=== PATIENT | female | born 1960 | race Hispanic/Latino ===

== ENCOUNTER → 2017-04-10 | Day surgery (SDC) | payer OTHER ==
--- NOTE | 2017-04-10 15:31 | ULT ---
ULTRASOUND GUIDED BREAST BIOPSY: Date: 04/10/17 HISTORY: Breast mass. COMPARISON: Outside facility dated 03/21/17. TECHNIQUE/FINDINGS: The patient was brought to the ultrasound suite. All questions were answered. There is revisualizati on of the right breast mass with ultrasound. Timeout was performed. Informed consent was already obt ained. Right breast was prepped and draped in the normal sterile fashion. 3 mL of lidocaine was inst illed into the soft tissues for local anesthesia. Using a 14 gauge Achieve needle, a total of four c ores were obtained. The patient tolerated the procedure well and without complication. Clip was plac ed. Clip was adequately located on the post clip mammogram. IMPRESSION: Technically successful right breast mass biopsy. Pathology is pending. POS: TRAN
--- NOTE | 2017-04-10 16:43 | MMO ---
RIGHT BREAST MAMMOGRAM: Date: 04/10/17 HISTORY: Post clip. COMPARISON: Ultrasound guided biopsy from same date. FINDINGS: Satisfactory appearance of the clip placed within the right breast mass. IMPRESSION: Satisfactory appearance of the biopsy clip. POS: TRAN
== END ==
LOC: ULT 12:26
PROVIDERS: ATTEND Family Medicine
PROC: 0HBT3ZX Excision of Right Breast, Percutaneous Approach, Diagnostic (ICD-10-PCS; principal; 2017-04-10)
DX: N61.1 Abscess of the breast and nipple (principal); E11.9 Type 2 diabetes mellitus without complications; G40.909 Epilepsy, unspecified, not intractable, without status epilepticus; I25.10 Atherosclerotic heart disease of native coronary artery without angina pectoris; I25.2 Old myocardial infarction; Z79.899 Other long term (current) drug therapy; Z79.82 Long term (current) use of aspirin; Z88.8 Allergy status to other drugs, medicaments and biological substances; Z98.51 Tubal ligation status; Z90.81 Acquired absence of spleen; Z98.890 Other specified postprocedural states; Z83.3 Family history of diabetes mellitus
CPT/HCPCS: 19083; 88305; 88341; 88342; G0206-RT

== ENCOUNTER 2019-12-28 21:12 | Inpatient (IN) | payer OTHER ==
[~2019-12-28 21:12] MED LIST: Iopamidol-370 76% 500 ML 1 ML ONE
[2019-12-28] MEDS ORDERED: Dexamethasone 10 MG/ML VIAL ONE (21:54)
--- NOTE | 2019-12-28 21:57 | RAD ---
Chest one view HISTORY: Fever and cough. COMPARISON: 10/07/2016. FINDINGS: Cardiac silhouette is magnified by projection. Pulmonary vasculature is unremarkable. Mediastinum is midline. Scattered patchy areas of ill-defined predominantly groundglass parenchymal infiltrate are present th roughout each lung. Most pronounced at the right suprahilar level. No evidence of pneumothorax. IMPRESSION : Multifocal infiltrates. Clinical correlation regarding other signs and symptoms of COVID pneumonitis is required.
[2019-12-28] MEDS ORDERED: Albuterol 200 PUFF (6.7GM INHALER) ONE (22:07)
[2019-12-28] MEDS ORDERED: Albuterol 200 PUFF (6.7GM INHALER) INH SCH (22:15)
[2019-12-29] MEDS ORDERED: cefTRIAXone\\ROCEPHIN 1 GM VIAL ONE (00:26)
[2019-12-29 00:30] LABS: Hemoglobin 13.1 g/dL (12.0-16.0); Mean Corpuscular HGB CONC 32.7 g/dL (32.0-36.0); Mean Corpuscular Hemoglobin 31.1 pg (27.0-31.0); Mean Corpuscular Volume 95.2 fL (78.0-98.0); Mean Platelet Volume 12.8 fL (7.4-10.4); Platelet Count 190 thou/uL (130-400); RBC Distribution Width 13.2 % (11.5-14.5); Red Blood Cell (RBC) Count 4.22 mill/uL (4.20-5.40); White Blood Cell (WBC) Count 12.8 thou/uL (4.8-10.8)
[2019-12-29 00:50] LABS: ALT (SGPT) 21 U/L (8-55); AST (SGOT) 31 U/L (5-34); Albumin 3.4 g/dL (3.5-5.0); Alkaline Phosphatase 191 U/L (40-110); BUN (Urea Nitrogen) 8 mg/dL (9.8-20.1); Bilirubin, Total 0.4 mg/dL (0.2-1.2); Calc. Creatinine Clearance 0 mL/min (70-130); Calcium 8.4 mg/dL (7.8-10.44); Carbon Dioxide 25 mmol/L (22-29); Estimated GFR-MDRD 85; Globulin 4.4 g/dL (2.4-3.5); Glucose 142 mg/dL (70-105); Protein, Total 7.8 g/dL (6.0-8.3)
[2019-12-29 00:57] LABS: Band 6 % (5-11); Lymphocytes 17 % (21-51); MDiff Complete? YES; Monocytes 1 % (0-10); Neutrophil 76 % (42-75); Platelet Morphology Comment Appears Adequate; RBC Morphology Normal
[2019-12-29] MEDS ORDERED: Azithromycin 500 MG VIAL ONE (01:11)
[2019-12-29 01:39] LABS: Anion Gap 15 mmol/L (10-20); Chloride 106 mmol/L (98-107); Sodium 138 mmol/L (136-145)
[2019-12-29] MEDS ORDERED: Ondansetron PF 4 MG/2 ML Vial IVP PRN ×2 (01:45→01:59)
[2019-12-29] MEDS ORDERED: Ondansetron ODT 4 MG TAB SL PRN (01:45)
[2019-12-29] MEDS ORDERED: Ondansetron ODT 4 MG TAB PO PRN (01:59)
[2019-12-29] MEDS ORDERED: hydrALAZINE 20 MG/ML VIAL SLOW IVP PRN (01:59)
[2019-12-29] MEDS ORDERED: Albuterol 200 PUFF (6.7GM INHALER) INH SCH (02:15)
--- NOTE | 2019-12-29 04:10 | HP ---
PRIMARY CARE PROVIDER: [facility]. CHIEF COMPLAINT: Shortness of breath and fever. HISTORY OF PRESENT ILLNESS: This is a 59-year-old female, who presented to [facility] complaining of increasing shortness of breath, fever, chills, and generalized body aches over the last 3 days. The patient denied any travel history or known exposures and denied any known exposure to COVID-19. The patient does have a history of asthma/COPD, using her and bronchodilator therapy at home. The patient states she used her inhalers in an increasing frequency; however, this did not relieve her symptoms. The patient denied any family members with similar symptoms and states that she has had pneumonia in the past approximately 3 years prior to this evaluation. The patient denies the need for home oxygen and states she is usually functional of all activities of daily living. In the emergency room, the patient underwent general evaluation including portable chest imaging and CT angiogram of the chest showing bilateral diffuse infiltrates concerning for pneumonia and potential COVID-19. A rapid COVID-19 PCR was performed, however, is pending at the time of this dictation. The patient received broad-spectrum antibiotic coverage with Rocephin and Zithromax in addition to Decadron 10 mg IM x1 dose and Proventil HFA. PAST MEDICAL HISTORY: 1. Generalized seizure disorder. 2. Asthma. 3. Diet-controlled diabetes mellitus type 2. PAST SURGICAL HISTORY: 1. Status post bilateral tubal ligation. 2. Status post section x3. 3. Status post splenectomy. CURRENT MEDICATIONS: 1. Metformin 500 mg p.o. daily. 2. Phenytoin 100 mg p.o. at 8 a.m. and 2:00 p.m. and 200 mg p.o. at 10:00 p.m. 3. Albuterol metered dose inhaler 2 puffs inhaled q.6 hours p.r.n. ALLERGIES: GLIPIZIDE. FAMILY HISTORY: Positive for diabetes mellitus type 2. SOCIAL HISTORY: No tobacco or illicit drug use. Drinks socially every week. Functional of all activities of daily living. REVIEW OF SYSTEMS: CONSTITUTIONAL: Negative for weight loss or gain, ability to conduct usual activities. SKIN: Negative for rash, itching. EYES: Negative for double vision, pain. ENT/MOUTH: Negative for nose bleeding, neck stiffness, pain, tenderness. CARDIOVASCULAR: Negative for palpitations, dyspnea on exertion, orthopnea. RESPIRATORY: Negative for shortness of breath, wheezing, cough, hemoptysis, fever or night sweats. GASTROINTESTINAL: Negative for poor appetite, abdominal pain, heartburn, nausea, vomiting, constipation, or diarrhea. GENITOURINARY: Negative for urgency, frequency, dysuria, nocturia. MUSCULOSKELETAL: Negative for pain, swelling. NEUROLOGIC/PSYCHIATRIC: Negative for anxiety, depression. ALLERGY/IMMUNOLOGIC: Negative for skin rash, bleeding tendency. Review of systems otherwise negative except as stated per HPI. PHYSICAL EXAMINATION: VITAL SIGNS: On admission, blood pressure 133/78, pulse 96, respiratory rate 18, temperature 98.8 degrees Fahrenheit, O2 saturation 93% on room air. GENERAL APPEARANCE: This is a 59-year-old female, alert and oriented x3, pleasant, conversant, in mild respiratory distress. HEENT: Pupils are equal, round, reactive to light and accommodation. Extraocular muscles are intact. No scleral icterus. No conjunctival injection. Nares patent. OP is clear. Teeth in fair repair. NECK: Supple. No cervical adenopathy. No thyromegaly. No carotid bruits. No JVD appreciated. Cervical spine with full active and passive range of motion. No meningeal signs noted. CHEST: Diminished breath sounds in the bases bilaterally with occasional rhonchi. CARDIOVASCULAR EXAM: S1, S2 without noted murmur, rub, or gallop. ABDOMEN: Rounded, soft, nontender, and nondistended. Bowel sounds are positive in all 4 quadrants. There is no hepatosplenomegaly. No abdominal bruits. No rebound or guarding appreciated. EXTREMITIES: Warm and dry with fair turgor. No clubbing, cyanosis, or asymmetric edema appreciated. Pulses palpable distally at the dorsalis pedis, posterior tibial, and popliteal arteries bilaterally. Capillary refill less than 2 seconds. NEUROLOGIC: Cranial nerves 2 through 12 are grossly intact. No focal or lateralizing signs appreciated. PERTINENT LABORATORY AND X-RAY FINDINGS: Sodium 138, potassium 4.0, chloride 106, CO2 of 25, BUN 8, creatinine 0.71, glucose 142, calcium 8.4. LFTs within normal limits. BNP 76. Albumin 3.4. CBC showed a white blood cell count of 12.8, hemoglobin 13, hematocrit 40, and platelet count 190 with 76% neutrophils. Portable chest x-ray dated 12/28/[address] angiogram of the chest dated 12/28/2019 showed no evidence for pulmonary embolus. Multifocal infiltrates were identified. EKG dated 12/29/2019 by my interpretation shows sinus mechanism with heart rates in the 80s. Normal R-wave progression noted in the precordial leads. Normal axis. No acute ST-T wave changes appreciated. ASSESSMENT AND PLAN: 1. Bilateral pneumonia, suspected COVID-19 viral pneumonia. The patient will be admitted to the telemetry unit. Continue Zithromax 500 mg IV daily with additional Rocephin 2 g IV daily, Decadron 6 mg p.o. daily, albuterol metered-dose inhaler 2 puffs inhaled q.4-6 hours p.r.n. Respiratory isolation. Rapid COVID-19 PCR pending at the time of this dictation. Continue oxygen supplementation to maintain O2 saturations greater than or equal to 90%. 2. Acute hypoxic respiratory failure. Mild hypoxia noted. We will continue oxygen supplementation as outlined previously. Titrate to clinical response. 3. Diabetes mellitus type 2. Confirm home diabetic regimen. Serial Accu-Cheks before meals and at bedtime. Insulin sliding scale for reflexive coverage. ADA diet. 4. Seizure disorder, chronic and controlled. We will continue phenytoin and monitor for clinical response. 5. Prophylaxis. SCDs while in bed. Pepcid 20 mg p.o. b.i.d. CODE STATUS: Full. Surrogate medical decision maker is patient's spouse. Job ID: [id number]
[2019-12-29 06:01] LABS: Band 6 % (5-11); Hemoglobin 13.2 g/dL (12.0-16.0); Lymphocytes 10 % (21-51); MDiff Complete? YES; Mean Corpuscular HGB CONC 31.7 g/dL (32.0-36.0); Mean Corpuscular Hemoglobin 30.4 pg (27.0-31.0); Mean Platelet Volume 12.9 fL (7.4-10.4); Monocytes 2 % (0-10); Neutrophil 82 % (42-75); Platelet Count 175 thou/uL (130-400); Platelet Morphology Comment Appears Adequate; RBC Distribution Width 13.3 % (11.5-14.5); RBC Morphology Normal; Red Blood Cell (RBC) Count 4.36 mill/uL (4.20-5.40); White Blood Cell (WBC) Count 10.9 thou/uL (4.8-10.8)
[2019-12-29 06:30] LABS: Anion Gap 14 mmol/L (10-20); BUN (Urea Nitrogen) 7 mg/dL (9.8-20.1); CRP (Inflammatory) 18.69 mg/dL (= or < 0.5); Calc. Creatinine Clearance 133 mL/min (70-130); Calcium 8.6 mg/dL (7.8-10.44); Carbon Dioxide 23 mmol/L (22-29); Chloride 106 mmol/L (98-107); Estimated GFR-MDRD Greater than 90; Glucose 158 mg/dL (70-105); Potassium 4.6 mmol/L (3.5-5.1); Sodium 138 mmol/L (136-145)
--- NOTE | 2019-12-29 07:12 | CT ---
PRELIMINARY REPORT/[facility]/EMERGENCY AFTER HOURS PROCEDURE: EXAM: CTA Chest with Intravenous Contrast CLINICAL HISTORY: Pt presents for cough and dyspnea. Mildly hypoxic on arrival with diminished breath sounds. No resp d istress. Exam otherwise unremarkable. CXR suggestive of COVID pneumonitis. Pt became increasingly hyp oxic on exertion in ED requiring O2/NC. Labs notable for leukocytosis. Given dyspnea and hypoxia with abnormal CXR, pt will be admitted for further management. Rapid COVID screen ordered. TECHNIQUE: Axial CTA images of the chest with intravenous contrast. Three-dimensional MIP/volume rendered reform ations were performed. CONTRAST: With; 70ML ISOVUE 370 COMPARISON: None provided. FINDINGS: PULMONARY ARTERIES There is no intraluminal filling defect suspicious for PE. AORTA No thoracic aortic aneurysm or dissection. LUNGS Extensive patchy bilateral pulmonary parenchymal consolidation and ground glass opacities, with predo minant involvement of the mid to upper lung zones correlate for atypical/viral pneumonia or ARDS and follow up to resolution to exclude other considerations. PLEURAL SPACES No pleural effusion. No pneumothorax. HEART AND MEDIASTINUM No cardiomegaly. No significant pericardial effusion. LYMPH NODES No lymphadenopathy. BONES No focal osseous abnormality or acute fracture. CHEST WALL AND UPPER ABDOMEN 3.5 cm right adrenal nodule, incompletely characterized, possibly and atypical adenoma. Correlate cli nically or considere MRI. IMPRESSION: 1. No evidence of pulmonary artery embolism. 2. Extensive patchy bilateral pulmonary parenchymal consolidation and ground glass opacities, with pr edominant involvement of the mid to upper lung zones correlate for atypical/viral pneumonia or ARDS a nd follow up to resolution to exclude other considerations. 3. 3.5 cm right adrenal nodule, incompletely characterized, possibly and atypical adenoma. Correlate clinically or considere MRI. ELECTRONICALLY SIGNED BY: Haja Dumas MD Dec 29, 2019 1:11:32 AM CDT This report is intended for review by the ordering physician only, in accordance of law. If you recei ve this report in error, please call [facility] at [phone]. [facility] EMERG[facility] AFTER HOURS CTA CHEST: FINDINGS/IMPRESSION: I agree with the findings and impression given in the preliminary report per [facility] physici an. 1. No evidence of pulmonary thromboembolism. 2. Multifocal pneumonia. 3. Right adrenal nodule. 4. Nonobstructing left kidney stone. POS: EAA
[2019-12-29] MEDS ORDERED: Loratadine 10 MG TAB PO PRN (07:46)
[2019-12-29] MEDS ORDERED: Cepastat Lozenges 1 LOZ PO PRN (07:46)
[2019-12-29] MEDS ORDERED: Loperamide HCl 2 MG CAP PO PRN (07:46)
[2019-12-29] MEDS ORDERED: Calcium Carbonate 500 MG ChewTAB PO PRN (07:46)
[2019-12-29] MEDS ORDERED: Sodium Chloride 0.65% Nasal 44 ML BOT EA NARE PRN (07:46)
[2019-12-29] MEDS ORDERED: Temazepam 15 MG CAP PO PRN (07:46)
[2019-12-29] MEDS ORDERED: Bisacodyl 10 MG SUPP PR PRN (07:46)
[2019-12-29] MEDS ORDERED: Senokot S 8.6-50 MG TAB PO PRN (07:46)
[2019-12-29] MEDS: Famotidine 20 MG TAB PO SCH ×2 (09:05→20:41)
[2019-12-29] MEDS: Zinc Sulfate 220 MG CAP PO SCH (09:05)
[2019-12-29] MEDS: Dexamethasone 4 MG TAB PO SCH (09:36)
[2019-12-29] MEDS: Ascorbic Acid 500 mg Chewable Tablet PO SCH (09:37)
[2019-12-29] MEDS: cefTRIAXone\\ROCEPHIN 2 GM in Sodium Chloride 0.9% 100 ML IVPB SCH (09:37)
--- NOTE | 2019-12-29 11:00 | PDOC.HOSPP ---
- Subjective Encounter Date: 12/29/19 Encounter Time: 07:30 Subjective: Patient seen and examined bedside today, patient has dry cough, patient does not have any chest pain, no fever, - Objective Vital Signs & Weight: Vital Signs (12 hours) Temp Pulse Resp BP BP Pulse Ox 12/29/19 09:00 98.3 F 66 20 136/60 99 12/29/19 08:08 96 12/29/19 06:00 98.1 F 63 18 111/55 L 96 12/29/19 01:40 98.4 F 82 18 131/67 98 Weight Weight 193 lb 12.8 oz Result Diagrams: 12/29/19 04:47 12/29/19 04:47 Radiology Reviewed by me: Yes (All radiological investigations reviewed) EKG Reviewed by me: Yes Hospitalist ROS - Review of Systems Constitutional: reports: weakness. denies: fever, chills, sweats, malaise, other Respiratory: reports: cough, SOB with excertion. denies: dry, shortness of breath, hemoptysis, pleuritic pain, sputum, wheezing, other Cardiovascular: denies: chest pain, palpitations, orthopnea, paroxysmal noc. dyspnea, edema, light headedness, other Gastrointestinal: denies: nausea, vomiting, abdominal pain, diarrhea, constipation, melena, hematochezia, other Genitourinary: denies: dysuria, frequency, incontinence, hematuria, retention, other Musculoskeletal: denies: neck pain, shoulder pain, arm pain, back pain, hand pain, leg pain, foot pain, other - Medication Medications: Active Medications Generic Name Dose Route Start Last Admin Trade Name Braeden PRN Reason Stop Dose Admin Ascorbic Acid 1,000 mg 12/29/19 09:00 12/29/19 09:37 Vitamin C PO 1,000 mg DAILY JUAN Administration Dexamethasone 6 mg 12/29/19 08:00 12/29/19 09:36 Decadron PO 6 mg QAM-WM JUAN Administration Famotidine 20 mg 12/29/19 09:00 12/29/19 09:05 Pepcid PO 20 mg BID JUAN Administration Ceftriaxone Sodium 2 gm/ 100 mls @ 200 mls/hr 12/29/19 09:00 12/29/19 09:37 Sodium Chloride IVPB 100 mls DAILY JUAN Administration Zinc Sulfate 220 mg 12/29/19 09:00 12/29/19 09:05 Zinc Sulfate PO 220 mg DAILY JUAN Administration - Exam General Appearance: NAD, awake alert Eye: PERRL, anicteric sclera ENT: normocephalic atraumatic, no oropharyngeal lesions Neck: supple, symmetric, no JVD, no thyromegaly Heart: RRR, no murmur, no gallops Respiratory - other findings: Coarse breath sounds basally Gastrointestinal: soft, non-tender, non-distended, normal bowel sounds Gastrointestinal - other findings: Obesity Extremities: no cyanosis, no clubbing Skin: normal turgor, no lesions Neurological: cranial nerve grossly intact, no focal deficits Musculoskeletal: normal tone, normal strength Psychiatric: normal affect, normal behavior Hosp A/P - Plan old records reviewed/req, continue antibiotics, respiratory therapy, DVT proph w /lovenox Assessment Acute respiratory failure with hypoxia Suspected COVID-19 infection Viral pneumonia Obesity with BMI 37 Diabetes type 2 Asthma Seizure disorder Plan Continue empiric Rocephin and azithromycin for now Follow-up on COVID-19 test result Continue vitamin supplementation Continue Decadron 6 mg p.o. daily Her home medication has been reconciled We will follow-up on COVID-19 test result We will change to inpatient status because we are expecting her stay in hospital more than 48 hours. We will wean off oxygen as tolerated Plan of care discussed with patient in detail.
[2019-12-29] MEDS: Benzonatate 100 MG CAP PO PRN ×2 (11:33→23:30)
[2019-12-29 15:29] LABS: SARS-CoV-2 MS2 Positive; SARS-CoV-2 N Gene Positive; SARS-CoV-2 S Gene Positive; SARS-CoV-2 by NAA DETECTED (NotDetected); SARS-CoV-2 orf1ab Positive
[2019-12-29] MEDS: Azithromycin 500 MG in Sodium Chloride 0.9% 250 ML 250 ML IVPB SCH (20:41)
[2019-12-30 05:39] LABS: Hemoglobin 13.4 g/dL (12.0-16.0); Mean Corpuscular HGB CONC 32.6 g/dL (32.0-36.0); Mean Corpuscular Hemoglobin 31.1 pg (27.0-31.0); Mean Corpuscular Volume 95.4 fL (78.0-98.0); Mean Platelet Volume 13.1 fL (7.4-10.4); Platelet Count 191 thou/uL (130-400); RBC Distribution Width 13.1 % (11.5-14.5); White Blood Cell (WBC) Count 13.2 thou/uL (4.8-10.8)
[2019-12-30 05:40] LABS: Band 3 % (5-11); Lymphocytes 8 % (21-51); MDiff Complete? YES; Monocytes 7 % (0-10); Neutrophil 81 % (42-75); Platelet Morphology Comment Appears Adequate; RBC Morphology Normal; Reactive Lymphocytes 1 % (0-10)
[2019-12-30 05:58] LABS: Anion Gap 15 mmol/L (10-20); BUN (Urea Nitrogen) 10 mg/dL (9.8-20.1); CRP (Inflammatory) 18.23 mg/dL (= or < 0.5); Calc. Creatinine Clearance 120 mL/min (70-130); Calcium 8.6 mg/dL (7.8-10.44); Carbon Dioxide 23 mmol/L (22-29); Chloride 103 mmol/L (98-107); Estimated GFR-MDRD 85; Glucose 95 mg/dL (70-105); Potassium 4.6 mmol/L (3.5-5.1); Sodium 136 mmol/L (136-145)
[2019-12-30] MEDS: Dexamethasone 4 MG TAB PO SCH (09:56)
[2019-12-30] MEDS: Acetaminophen 500 MG TAB PO PRN ×2 (09:56→21:11)
[2019-12-30] MEDS: Enoxaparin Sodium 40 MG/0.4 ML SYRINGE SC SCH (09:57)
[2019-12-30] MEDS: Famotidine 20 MG TAB PO SCH ×2 (09:57→19:32)
[2019-12-30] MEDS: Mometasone 200 MCG/Formoterol 5 MCG 120 PUFF INHALER INH SCH (09:57)
[2019-12-30] MEDS: Zinc Sulfate 220 MG CAP PO SCH (09:57)
[2019-12-30] MEDS: cefTRIAXone\\ROCEPHIN 2 GM in Sodium Chloride 0.9% 100 ML IVPB SCH (09:57)
[2019-12-30] MEDS: Ascorbic Acid 500 mg Chewable Tablet PO SCH (09:58)
--- NOTE | 2019-12-30 12:17 | PDOC.HOSPP ---
- Subjective Encounter Date: 12/30/19 Encounter Time: 08:25 Subjective: Patient seen and examined bedside today, patient is subjectively not feeling good, she is very weak, she has cough, - Objective Vital Signs & Weight: Vital Signs (12 hours) Temp Pulse Resp BP Pulse Ox 12/30/19 11:13 99.4 F 74 22 H 111/57 L 93 L 12/30/19 09:15 99.5 F 77 18 121/59 L 95 12/30/19 04:15 99.3 F 72 25 H 115/55 L 97 Weight Weight 193 lb 6.4 oz I&O: 12/29/19 12/30/19 12/31/19 06:59 06:59 06:59 Intake Total 1520 Output Total 900 Balance 620 Result Diagrams: 12/30/19 04:57 12/30/19 04:57 Hospitalist ROS - Review of Systems Constitutional: reports: weakness, malaise. denies: fever, chills, sweats, other Respiratory: reports: cough. denies: dry, shortness of breath, hemoptysis, SOB with excertion, pleuritic pain, sputum, wheezing, other Cardiovascular: denies: chest pain, palpitations, orthopnea, paroxysmal noc. dyspnea, edema, light headedness, other Gastrointestinal: denies: nausea, vomiting, abdominal pain, diarrhea, constipation, melena, hematochezia, other Genitourinary: denies: dysuria, frequency, incontinence, hematuria, retention, other Musculoskeletal: denies: neck pain, shoulder pain, arm pain, back pain, hand pain, leg pain, foot pain, other - Medication Medications: Active Medications Generic Name Dose Route Start Last Admin Trade Name Freq PRN Reason Stop Dose Admin Acetaminophen 1,000 mg 12/29/19 01:59 12/30/19 09:56 Tylenol PO 1,000 mg Q6H PRN Administration Mild Pain (1-3) Ascorbic Acid 1,000 mg 12/29/19 09:00 12/30/19 09:58 Vitamin C PO 1,000 mg DAILY JUAN Administration Benzonatate 100 mg 12/29/19 01:59 12/29/19 23:30 Tessalon PO 100 mg Q6H PRN Administration Cough Dexamethasone 6 mg 12/29/19 08:00 12/30/19 09:56 Decadron PO 6 mg QAM-WM JUAN Administration Enoxaparin Sodium 40 mg 12/30/19 09:00 12/30/19 09:57 Lovenox SC 40 mg 0900 JUAN Administration Famotidine 20 mg 12/29/19 09:00 12/30/19 09:57 Pepcid PO 20 mg BID JUAN Administration Azithromycin 500 mg/ Sodium 250 mls @ 250 mls/hr 12/29/19 21:00 12/29/19 20: 41 Chloride IVPB 250 mls HS JUAN Administration Ceftriaxone Sodium 2 gm/ 100 mls @ 200 mls/hr 12/29/19 09:00 12/30/19 09:57 Sodium Chloride IVPB 100 mls DAILY JUAN Administration Mometasone Furoate/Formoterol Fumar 2 puff 12/30/19 07:00 12/30/19 09:57 Dulera 200 Mcg/5 Mcg Inhaler INH 2 puff DAILY-RT JUAN Administration Phenytoin Sodium 300 mg 12/29/19 21:00 12/29/19 20:41 Dilantin Er PO 300 mg HS JUAN Administration Zinc Sulfate 220 mg 12/29/19 09:00 12/30/19 09:57 Zinc Sulfate PO 220 mg DAILY JUAN Administration - Exam General Appearance: NAD, awake alert Eye: PERRL, anicteric sclera ENT: normocephalic atraumatic, no oropharyngeal lesions Neck: supple, symmetric, no JVD, no thyromegaly Heart: RRR, no murmur, no gallops, no rubs Respiratory: CTAB, no wheezes, no rales, no ronchi Gastrointestinal: soft, non-tender, non-distended, normal bowel sounds Extremities: no cyanosis, no clubbing Skin: normal turgor, no lesions Neurological: no focal deficits Musculoskeletal: normal tone, normal strength Psychiatric: normal affect, normal behavior Hosp A/P - Plan old records reviewed/req, continue antibiotics, respiratory therapy Assessment Acute respiratory failure with hypoxia, due to COVID-19 infection Acute respiratory distress due to COVID-19 infection Viral pneumonia, due to COVID-19 virus Obesity with BMI 37 Diabetes type 2 Asthma Seizure disorder Plan Continue empiric Rocephin and azithromycin for now Continue vitamin supplementation Continue Decadron 6 mg p.o. daily Plan of care discussed with patient in detail. Medication reviewed and continue provide symptomatic and supportive care If patient has no more deterioration then will consider discharging her home tomorrow
[2019-12-30] MEDS: Azithromycin 500 MG in Sodium Chloride 0.9% 250 ML 250 ML IVPB SCH (19:33)
[2019-12-30] MEDS: Albuterol 200 PUFF (6.7GM INHALER) INH PRN (19:47)
[2019-12-30] MEDS: Benzonatate 100 MG CAP PO PRN (19:48)
[2019-12-31] MEDS: Benzonatate 100 MG CAP PO PRN (03:32)
[2019-12-31] MEDS: Mometasone 200 MCG/Formoterol 5 MCG 120 PUFF INHALER INH SCH (07:05)
[2019-12-31] MEDS: Albuterol 200 PUFF (6.7GM INHALER) INH PRN (07:05)
[2019-12-31] MEDS: Ascorbic Acid 500 mg Chewable Tablet PO SCH (09:26)
[2019-12-31] MEDS: Dexamethasone 4 MG TAB PO SCH (09:26)
[2019-12-31] MEDS: cefTRIAXone\\ROCEPHIN 2 GM in Sodium Chloride 0.9% 100 ML IVPB SCH (09:26)
[2019-12-31] MEDS: Famotidine 20 MG TAB PO SCH ×2 (09:27→20:05)
[2019-12-31] MEDS: Zinc Sulfate 220 MG CAP PO SCH (09:27)
[2019-12-31] MEDS: Enoxaparin Sodium 40 MG/0.4 ML SYRINGE SC SCH (09:27)
--- NOTE | 2019-12-31 15:54 | PDOC.HOSPP ---
- Subjective Encounter Date: 12/31/19 Subjective: Continues to feel poorly. States she is okay as long as she is lying comfortably in bed with the oxygen on. Any attempts at exertion causes some increasing shortness of breath. - Objective Vital Signs & Weight: Vital Signs (12 hours) Temp Pulse Resp BP BP Pulse Ox 12/31/19 12:26 99.1 F 74 25 H 118/54 L 92 L 12/31/19 07:25 98.1 F 67 20 113/73 94 L 12/31/19 07:07 93 L 12/31/19 07:05 86 30 H 131/60 88 L Weight Weight 191 lb 12.8 oz I&O: 12/30/19 12/31/19 01/01/20 06:59 06:59 06:59 Intake Total 1520 1790 400 Output Total 900 1450 Balance 620 340 400 Result Diagrams: 12/30/19 04:57 12/30/19 04:57 Hospitalist ROS - Medication Medications: Active Medications Generic Name Dose Route Start Last Admin Trade Name Freq PRN Reason Stop Dose Admin Acetaminophen 1,000 mg 12/29/19 01:59 12/30/19 21:11 Tylenol PO 1,000 mg Q6H PRN Administration Mild Pain (1-3) Albuterol Sulfate 1 puff 12/29/19 01:59 12/31/19 07:05 Proventil Hfa INH 1 puff Q6H PRN Administration Wheezing Ascorbic Acid 1,000 mg 12/29/19 09:00 12/31/19 09:26 Vitamin C PO 1,000 mg DAILY JUAN Administration Benzonatate 100 mg 12/29/19 01:59 12/31/19 03:32 Tessalon PO 100 mg Q6H PRN Administration Cough Dexamethasone 6 mg 12/29/19 08:00 12/31/19 09:26 Decadron PO 6 mg QAM-WM JUAN Administration Enoxaparin Sodium 40 mg 12/30/19 09:00 12/31/19 09:27 Lovenox SC 40 mg 0900 JUAN Administration Famotidine 20 mg 12/29/19 09:00 12/31/19 09:27 Pepcid PO 20 mg BID JUAN Administration Mometasone Furoate/Formoterol Fumar 2 puff 12/30/19 07:00 12/31/19 07:05 Dulera 200 Mcg/5 Mcg Inhaler INH 2 puff DAILY-RT JUAN Administration Phenytoin Sodium 300 mg 12/29/19 21:00 12/30/19 19:32 Dilantin Er PO 300 mg HS JUAN Administration Zinc Sulfate 220 mg 12/29/19 09:00 12/31/19 09:27 Zinc Sulfate PO 220 mg DAILY JUAN Administration - Exam General Appearance: NAD, awake alert General - other findings: Obese Heart: RRR, no murmur, no gallops, no rubs, normal peripheral pulses Respiratory: CTAB, no wheezes, no rales, no ronchi, normal chest expansion, no tachypnea, normal percussion Gastrointestinal: soft, non-tender, non-distended, normal bowel sounds, no palpable masses, no hepatomegaly, no splenomegaly, no bruit Extremities: no cyanosis, no clubbing, no edema Skin: normal turgor, no lesions, no rashes Neurological: no focal deficits Musculoskeletal: normal tone Psychiatric: normal affect, normal behavior, A&O x 3 Hosp A/P (1) Acute respiratory failure with hypoxia Code(s): J96.01 - ACUTE RESPIRATORY FAILURE WITH HYPOXIA Status: Acute (2) COVID-19 virus infection Code(s): U07.1 - COVID-19 Status: Acute (3) Diabetes mellitus Code(s): E11.9 - TYPE 2 DIABETES MELLITUS WITHOUT COMPLICATIONS Status: Acute (4) Epilepsy Code(s): G40.909 - EPILEPSY, UNSP, NOT INTRACTABLE, WITHOUT STATUS EPILEPTICUS Status: Acute - Plan Acute hypoxic respiratory failure: Secondary to COVID-19 pneumonia. Continue with supplemental oxygen. Today she is satting 88% on room air. COVID-19 pneumonia: Patient's oxygen saturation is fairly stable with low and small amounts of oxygen. Therefore she does not qualify for aggressive antiviral therapy. She is on Decadron. Continue oxygen support. Diabetes mellitus: Patient has a history of diabetes and takes metformin at home. So far here her blood sugars have been pretty good. Will order Accu-Cheks and continue to monitor his they may go up with the dexamethasone. So far she is not been started back on her metformin as there is not been any medication. Seizure disorder: Continue home medical regimen.
[2020-01-01] MEDS: Mometasone 200 MCG/Formoterol 5 MCG 120 PUFF INHALER INH SCH (06:09)
[2020-01-01] MEDS: Dexamethasone 4 MG TAB PO SCH (08:16)
[2020-01-01] MEDS: Famotidine 20 MG TAB PO SCH ×2 (08:17→19:49)
[2020-01-01] MEDS: Ascorbic Acid 500 mg Chewable Tablet PO SCH (08:17)
[2020-01-01] MEDS: Enoxaparin Sodium 40 MG/0.4 ML SYRINGE SC SCH (08:17)
[2020-01-01] MEDS: Zinc Sulfate 220 MG CAP PO SCH (08:17)
[2020-01-01] MEDS ORDERED: HumaLOG 300 UNITS/3 ML VIAL SC PRN (09:55)
[2020-01-01] MEDS ORDERED: Dextrose 50% Abboject 50 ML SYRINGE SLOW IVP PRN (09:55)
[2020-01-01] MEDS ORDERED: Dextrose 5% in Water 1,000 ML IV PRN (09:55)
[2020-01-01] MEDS: Benzonatate 100 MG CAP PO PRN ×2 (10:53→19:49)
--- NOTE | 2020-01-01 14:53 | PDOC.HOSPP ---
- Subjective Encounter Date: 01/01/20 Subjective: Feeling somewhat better today. Breathing a little easier. Nurse indicated that she got her up and around today and she did fairly well until she had a coughing fit. Subsequent took a while to get her sats back up. - Objective Vital Signs & Weight: Vital Signs (12 hours) Temp Pulse Resp BP BP Pulse Ox 01/01/20 11:33 98 F 74 22 H 121/58 L 98 01/01/20 07:34 99.3 F 69 22 H 118/58 L 96 01/01/20 04:10 99.9 F H 69 20 117/55 L 97 Weight Weight 191 lb 12.8 oz I&O: 12/31/19 01/01/20 01/02/20 06:59 06:59 06:59 Intake Total 1790 850 360 Output Total 1450 500 Balance 340 350 360 Result Diagrams: 12/30/19 04:57 12/30/19 04:57 Additional Labs: Accuchecks 01/01/20 11:02 POC Glucose 157 H Hospitalist ROS - Medication Medications: Active Medications Generic Name Dose Route Start Last Admin Trade Name Freq PRN Reason Stop Dose Admin Acetaminophen 1,000 mg 12/29/19 01:59 12/30/19 21:11 Tylenol PO 1,000 mg Q6H PRN Administration Mild Pain (1-3) Albuterol Sulfate 1 puff 12/29/19 01:59 12/31/19 07:05 Proventil Hfa INH 1 puff Q6H PRN Administration Wheezing Ascorbic Acid 1,000 mg 12/29/19 09:00 01/01/20 08:17 Vitamin C PO 1,000 mg DAILY JUAN Administration Benzonatate 100 mg 12/29/19 01:59 01/01/20 10:53 Tessalon PO 100 mg Q6H PRN Administration Cough Dexamethasone 6 mg 12/29/19 08:00 01/01/20 08:16 Decadron PO 6 mg QAM-WM JUAN Administration Enoxaparin Sodium 40 mg 12/30/19 09:00 01/01/20 08:17 Lovenox SC 40 mg 0900 JUAN Administration Famotidine 20 mg 12/29/19 09:00 01/01/20 08:17 Pepcid PO 20 mg BID JUAN Administration Mometasone Furoate/Formoterol Fumar 2 puff 12/30/19 07:00 01/01/20 06:09 Dulera 200 Mcg/5 Mcg Inhaler INH 2 puff DAILY-RT JUAN Administration Phenytoin Sodium 300 mg 12/29/19 21:00 12/31/19 20:04 Dilantin Er PO 300 mg HS JUAN Administration Zinc Sulfate 220 mg 12/29/19 09:00 01/01/20 08:17 Zinc Sulfate PO 220 mg DAILY JUAN Administration - Exam General Appearance: NAD, awake alert Heart: RRR, no murmur, no gallops, no rubs, normal peripheral pulses Respiratory: no wheezes, no ronchi, normal chest expansion, no tachypnea, normal percussion, rales (Mild bibasilar) Gastrointestinal: soft, non-tender, non-distended, normal bowel sounds, no palpable masses, no hepatomegaly, no splenomegaly, no bruit Extremities: no cyanosis, no clubbing, no edema Musculoskeletal: normal tone Psychiatric: normal affect, normal behavior, A&O x 3 Hosp A/P (1) Acute respiratory failure with hypoxia Code(s): J96.01 - ACUTE RESPIRATORY FAILURE WITH HYPOXIA Status: Acute (2) COVID-19 virus infection Code(s): U07.1 - COVID-19 Status: Acute (3) Diabetes mellitus Code(s): E11.9 - TYPE 2 DIABETES MELLITUS WITHOUT COMPLICATIONS Status: Acute (4) Epilepsy Code(s): G40.909 - EPILEPSY, UNSP, NOT INTRACTABLE, WITHOUT STATUS EPILEPTICUS Status: Acute - Plan Acute hypoxic respiratory failure: Secondary to COVID-19 pneumonia. Continue with supplemental oxygen. COVID-19 pneumonia: Patient's oxygen saturation is fairly stable with low and small amounts of oxygen. Therefore she does not qualify for aggressive antiviral therapy. She is on Decadron. Continue oxygen support. Diabetes mellitus: Patient has a history of diabetes and takes metformin at home. So far here her blood sugars have been pretty good. Will order Accu-Cheks and continue to monitor his they may go up with the dexamethasone. Seizure disorder: Continue home medical regimen. Disposition: Conceivable the patient could go home on some home oxygen soon. Discussed this with the patient. She is not sure she has a place where she can go where she can adequately isolate.
[2020-01-01] MEDS: Acetaminophen 500 MG TAB PO PRN (19:49)
[2020-01-02] MEDS: Benzonatate 100 MG CAP PO PRN ×3 (01:41→17:00)
[2020-01-02] MEDS: Acetaminophen 500 MG TAB PO PRN ×2 (04:43→17:00)
[2020-01-02] MEDS: Albuterol 200 PUFF (6.7GM INHALER) INH PRN ×2 (05:41→17:07)
[2020-01-02] MEDS: Mometasone 200 MCG/Formoterol 5 MCG 120 PUFF INHALER INH SCH (06:00)
[2020-01-02] MEDS: Dexamethasone 4 MG TAB PO SCH (07:22)
[2020-01-02] MEDS: Enoxaparin Sodium 40 MG/0.4 ML SYRINGE SC SCH ×2 (07:22→19:20)
[2020-01-02] MEDS: Ascorbic Acid 500 mg Chewable Tablet PO SCH (07:22)
[2020-01-02] MEDS: Zinc Sulfate 220 MG CAP PO SCH (07:23)
[2020-01-02] MEDS: Famotidine 20 MG TAB PO SCH ×2 (07:23→19:19)
--- NOTE | 2020-01-02 13:51 | PDOC.HOSPP ---
- Subjective Encounter Date: 01/02/20 Subjective: Patient continues to feel a little better. She still feels short of breath at times. Especially true when trying to exert herself. I did clarify again with the patient today that she will have a place to go to at discharge. She says the person with whom she lives also has the virus now. Therefore she will be able to be around them in the home and will be able to stay in the air conditioned portion of the home. - Objective Vital Signs & Weight: Vital Signs (12 hours) Temp Pulse Resp BP BP Pulse Ox 01/02/20 11:00 98.2 F 65 22 H 108/64 96 01/02/20 08:00 98 F 64 24 H 101/51 L 97 01/02/20 04:50 98.4 F 71 34 H 116/57 L 94 L Weight Weight 191 lb 12.8 oz I&O: 01/01/20 01/02/20 01/03/20 06:59 06:59 06:59 Intake Total 850 1600 120 Output Total 500 600 Balance 350 1000 120 Result Diagrams: 12/30/19 04:57 12/30/19 04:57 Additional Labs: Accuchecks 01/01/20 16:45 POC Glucose 140 H Hospitalist ROS - Medication Medications: Active Medications Generic Name Dose Route Start Last Admin Trade Name Braeden PRN Reason Stop Dose Admin Acetaminophen 1,000 mg 12/29/19 01:59 01/02/20 04:43 Tylenol PO 1,000 mg Q6H PRN Administration Mild Pain (1-3) Albuterol Sulfate 1 puff 12/29/19 01:59 01/02/20 05:41 Proventil Hfa INH 1 puff Q6H PRN Administration Wheezing Ascorbic Acid 1,000 mg 12/29/19 09:00 01/02/20 07:22 Vitamin C PO 1,000 mg DAILY JUAN Administration Benzonatate 100 mg 12/29/19 01:59 01/02/20 07:23 Tessalon PO 100 mg Q6H PRN Administration Cough Dexamethasone 6 mg 12/29/19 08:00 01/02/20 07:22 Decadron PO 6 mg QAM-WM JUAN Administration Enoxaparin Sodium 40 mg 12/30/19 09:00 01/02/20 07:22 Lovenox SC 40 mg 0900 JUAN Administration Famotidine 20 mg 12/29/19 09:00 01/02/20 07:23 Pepcid PO 20 mg BID JUAN Administration Mometasone Furoate/Formoterol Fumar 2 puff 12/30/19 07:00 01/02/20 06:00 Dulera 200 Mcg/5 Mcg Inhaler INH 2 puff DAILY-RT JUAN Administration Phenytoin Sodium 300 mg 12/29/19 21:00 01/01/20 19:49 Dilantin Er PO 300 mg HS JUAN Administration Zinc Sulfate 220 mg 12/29/19 09:00 01/02/20 07:23 Zinc Sulfate PO 220 mg DAILY JUAN Administration - Exam General Appearance: NAD, awake alert General - other findings: Obese. Heart: RRR, no murmur, no gallops, no rubs, normal peripheral pulses Respiratory: CTAB, no wheezes, no rales, no ronchi, normal chest expansion, normal percussion, tachypneic (Mild) Respiratory - other findings: Compromised by disposable stethoscope. Gastrointestinal: soft, non-tender, non-distended, normal bowel sounds, no palpable masses, no hepatomegaly, no splenomegaly, no bruit Extremities: no cyanosis, no clubbing, no edema Skin: normal turgor Neurological: no new deficit Musculoskeletal: normal tone, normal strength Psychiatric: normal affect, normal behavior, A&O x 3 Hosp A/P (1) Acute respiratory failure with hypoxia Code(s): J96.01 - ACUTE RESPIRATORY FAILURE WITH HYPOXIA Status: Acute (2) COVID-19 virus infection Code(s): U07.1 - COVID-19 Status: Acute (3) Diabetes mellitus Code(s): E11.9 - TYPE 2 DIABETES MELLITUS WITHOUT COMPLICATIONS Status: Acute (4) Epilepsy Code(s): G40.909 - EPILEPSY, UNSP, NOT INTRACTABLE, WITHOUT STATUS EPILEPTICUS Status: Acute - Plan Acute hypoxic respiratory failure: Secondary to COVID-19 pneumonia. Continue with supplemental oxygen. Only requiring about 3 L/min of nasal cannula oxygen, however she is still a little tachypneic with that. Would consider discharge on home oxygen if she can get down to 2 L. COVID-19 pneumonia: Patient's oxygen saturation is fairly stable with low and small amounts of oxygen. Therefore she does not qualify for aggressive antiviral therapy. She is on Decadron. Continue oxygen support. Diabetes mellitus: Patient has a history of diabetes and takes metformin at home. So far here her blood sugars have been pretty good. Will follow Accu-Cheks and continue to monitor his they may go up with the dexamethasone. Seizure disorder: Continue home medical regimen. Disposition: Conceivable the patient could go home on some home oxygen soon. Discussed this with the patient.
--- NOTE | 2020-01-02 15:00 | PDOC.EVN ---
Event Note - Event Note Event Note: Discussed this case with Dr. Mendez. In light of her elevating inflammatory markers and her persistent need to have 3 L of oxygen with some persistent mild tachypnea we will go ahead and initiate remdesivir.
[2020-01-02] MEDS ORDERED: REMDESIVIR (EUA) 200 MG in Sodium Chloride 0.9% 250 ML 210 ML IV SCH (17:00)
[2020-01-03] MEDS: Mometasone 200 MCG/Formoterol 5 MCG 120 PUFF INHALER INH SCH (05:27)
[2020-01-03 06:29] LABS: ALT (SGPT) 35 U/L (8-55); AST (SGOT) 36 U/L (5-34)
--- NOTE | 2020-01-03 06:48 | PDOC.HOSPP ---
- Subjective Encounter Date: 01/03/20 Encounter Time: 09:45 Subjective: Patient seen and examined for resp failure. On 5 lit O2 NC. SOB on minimal exertion. No CP. No other complaints. No overnight events - Objective Vital Signs & Weight: Vital Signs (12 hours) Temp Pulse Resp BP BP Pulse Ox 01/03/20 04:00 97.9 F 73 22 H 118/59 L 95 01/02/20 23:35 98.0 F 72 24 H 139/65 93 L 01/02/20 19:42 98.2 F 69 23 H 130/63 96 Weight Weight 191 lb 12.8 oz I&O: 01/01/20 01/02/20 01/03/20 06:59 06:59 06:59 Intake Total 850 1600 1290 Output Total 500 600 950 Balance 350 1000 340 Result Diagrams: 12/30/19 04:57 12/30/19 04:57 Additional Labs: Accuchecks 01/03/20 01/02/20 01/02/20 05:34 19:28 17:14 POC Glucose 111 H 100 124 H 01/02/20 01/02/20 01/01/20 11:10 04:51 20:00 POC Glucose 226 H 105 147 H Laboratory Tests 12/29/19 01/02/20 01/02/20 00:00 06:08 06:08 D-Dimer 1.36 H C-Reactive Protein 28.18 H COVID-19 PCR DETECTED A* Microbiology 12/29/19 00:36 Venous blood - Left Arm Blood Culture - Preliminary NO GROWTH AT 48 HOURS 12/29/19 00:35 Venous blood - Right Hand Blood Culture - Preliminary NO GROWTH AT 48 HOURS Radiology Reviewed by me: Yes (CTA - COVID Pneumonia) EKG Reviewed by me: Yes (Tele SR) Hospitalist ROS - Review of Systems Cardiovascular: denies: chest pain, palpitations, orthopnea, paroxysmal noc. dyspnea, edema, light headedness, other Gastrointestinal: denies: nausea, vomiting, abdominal pain, diarrhea, constipation, melena, hematochezia, other - Medication Medications: Active Medications Generic Name Dose Route Start Last Admin Trade Name Freq PRN Reason Stop Dose Admin Acetaminophen 1,000 mg 12/29/19 01:59 01/02/20 17:00 Tylenol PO 1,000 mg Q6H PRN Administration Mild Pain (1-3) Albuterol Sulfate 1 puff 12/29/19 01:59 01/02/20 17:07 Proventil Hfa INH 1 puff Q6H PRN Administration Wheezing Ascorbic Acid 1,000 mg 12/29/19 09:00 01/02/20 07:22 Vitamin C PO 1,000 mg DAILY JUAN Administration Benzonatate 100 mg 12/29/19 01:59 01/02/20 17:00 Tessalon PO 100 mg Q6H PRN Administration Cough Dexamethasone 6 mg 12/29/19 08:00 01/02/20 07:22 Decadron PO 6 mg QAM-WM JUAN Administration Enoxaparin Sodium 40 mg 01/02/20 21:00 01/02/20 19:20 Lovenox SC 40 mg BID JUAN Administration Famotidine 20 mg 12/29/19 09:00 01/02/20 19:19 Pepcid PO 20 mg BID JUAN Administration Mometasone Furoate/Formoterol Fumar 2 puff 12/30/19 07:00 01/03/20 05:27 Dulera 200 Mcg/5 Mcg Inhaler INH 2 puff DAILY-RT JUAN Administration Phenytoin Sodium 300 mg 12/29/19 21:00 01/02/20 19:20 Dilantin Er PO 300 mg HS JUAN Administration Zinc Sulfate 220 mg 12/29/19 09:00 01/02/20 07:23 Zinc Sulfate PO 220 mg DAILY JUAN Administration - Exam General Appearance: ill appearing Neck: supple, symmetric, no JVD, no thyromegaly Heart: RRR, no gallops, no rubs, normal peripheral pulses Respiratory: no wheezes, normal chest expansion, rhonchi, tachypneic Gastrointestinal: soft, non-tender, normal bowel sounds, no guarding, no rigidity Extremities: no cyanosis, no clubbing, no edema Extremities - other findings: no calf tenderness Neurological: no new deficit Psychiatric: normal affect, A&O x 3 Hosp A/P - Plan DVT proph w/lovenox, GI proph Sepsis/Acute hypoxic resp failure due to COVID Pneumonia - POA -on Remdesivir - started on 01/01 -on PO Dexamethasone - started on 12/28 DM2 Seizure disorder Obesity BMI 37 Rt Adrenal nodule PLAN: Cont O2 supp Cont Remdesivir/Dexamethasone Cont Vit C/Zinc Home O2 setup at ok Cont supportive care Cont GI & DVT prophylaxis AM labs Monitor inflammatory markers
[2020-01-03] MEDS: Famotidine 20 MG TAB PO SCH ×2 (08:25→19:25)
[2020-01-03] MEDS: Ascorbic Acid 500 mg Chewable Tablet PO SCH (08:25)
[2020-01-03] MEDS: Calcium Carbonate 600 MG + Vit D TAB PO SCH (08:25)
[2020-01-03] MEDS: Dexamethasone 4 MG TAB PO SCH (08:25)
[2020-01-03] MEDS: Enoxaparin Sodium 40 MG/0.4 ML SYRINGE SC SCH ×2 (08:25→19:24)
[2020-01-03] MEDS: Zinc Sulfate 220 MG CAP PO SCH (08:25)
[2020-01-03] MEDS: Multivit, Therapeutic 1 TAB PO SCH (08:25)
[2020-01-03] MEDS ORDERED: HumaLOG 300 UNITS/3 ML VIAL SC PRN (10:22)
[2020-01-03] MEDS: REMDESIVIR (EUA) 100 MG in Sodium Chloride 0.9% 250 ML 230 ML IV SCH (16:56)
[2020-01-04] MEDS: Benzonatate 100 MG CAP PO PRN (02:22)
[2020-01-04] MEDS: Acetaminophen 500 MG TAB PO PRN ×2 (02:22→10:16)
[2020-01-04] MEDS: Mometasone 200 MCG/Formoterol 5 MCG 120 PUFF INHALER INH SCH (05:11)
[2020-01-04 05:47] LABS: Band 3 % (5-11); Eosinophils 2 % (0-10); Hemoglobin 12.7 g/dL (12.0-16.0); Lymphocytes 7 % (21-51); MDiff Complete? YES; Mean Corpuscular HGB CONC 32.5 g/dL (32.0-36.0); Mean Corpuscular Hemoglobin 31.2 pg (27.0-31.0); Mean Corpuscular Volume 96.2 fL (78.0-98.0); Mean Platelet Volume 12.7 fL (7.4-10.4); Monocytes 6 % (0-10); Neutrophil 82 % (42-75); Platelet Count 248 thou/uL (130-400); Platelet Morphology Comment Appears Adequate; RBC Distribution Width 13.2 % (11.5-14.5); RBC Morphology Normal; Red Blood Cell (RBC) Count 4.08 mill/uL (4.20-5.40)
[2020-01-04 05:52] LABS: ALT (SGPT) 29 U/L (8-55); AST (SGOT) 24 U/L (5-34); Albumin 2.7 g/dL (3.5-5.0); Alkaline Phosphatase 274 U/L (40-110); Anion Gap 10 mmol/L (10-20); BUN (Urea Nitrogen) 15 mg/dL (9.8-20.1); Bilirubin, Total 0.4 mg/dL (0.2-1.2); CRP (Inflammatory) 29.76 mg/dL (= or < 0.5); Calc. Creatinine Clearance 140 mL/min (70-130); Calcium 9.3 mg/dL (7.8-10.44); Carbon Dioxide 29 mmol/L (22-29); Chloride 103 mmol/L (98-107); Estimated GFR-MDRD Greater than 90; Globulin 4.5 g/dL (2.4-3.5); Glucose 127 mg/dL (70-105); Magnesium 1.9 mg/dL (1.6-2.6); Potassium 4.3 mmol/L (3.5-5.1); Protein, Total 7.2 g/dL (6.0-8.3); Sodium 138 mmol/L (136-145)
[2020-01-04 05:53] LABS: Phosphorus 3.1 mg/dL (2.3-4.7)
[2020-01-04] MEDS: Zinc Sulfate 220 MG CAP PO SCH (08:42)
[2020-01-04] MEDS: Enoxaparin Sodium 40 MG/0.4 ML SYRINGE SC SCH ×2 (08:42→20:30)
[2020-01-04] MEDS: Dexamethasone 4 MG TAB PO SCH (08:43)
[2020-01-04] MEDS: Calcium Carbonate 600 MG + Vit D TAB PO SCH (08:43)
[2020-01-04] MEDS: Multivit, Therapeutic 1 TAB PO SCH (08:43)
[2020-01-04] MEDS: Famotidine 20 MG TAB PO SCH ×2 (08:43→20:30)
[2020-01-04] MEDS: Ascorbic Acid 500 mg Chewable Tablet PO SCH (08:43)
--- NOTE | 2020-01-04 08:57 | PDOC.HOSPP ---
- Subjective Encounter Date: 01/04/20 Encounter Time: 14:00 Subjective: Patient seen and examined for resp failure. SOB at rest. Unable to complete short sentences. Mild cough. No new complaints. No overnight events - Objective Vital Signs & Weight: Vital Signs (12 hours) Temp Pulse Resp BP Pulse Ox 01/04/20 03:00 98.6 F 70 28 H 118/56 L 93 L 01/03/20 23:32 97.8 F 61 25 H 124/63 95 Weight Weight 191 lb 12.8 oz I&O: 01/03/20 01/04/20 01/05/20 06:59 06:59 06:59 Intake Total 1290 1340 Output Total 950 Balance 340 1340 Result Diagrams: 01/05/20 05:30 01/05/20 05:30 Additional Labs: Accuchecks 01/03/20 01/03/20 19:35 15:53 POC Glucose 139 H 149 H Microbiology 12/29/19 00:36 Venous blood - Left Arm Blood Culture - Final NO GROWTH IN 5 DAYS 12/29/19 00:35 Venous blood - Right Hand Blood Culture - Final NO GROWTH IN 5 DAYS Laboratory Tests 01/02/20 01/02/20 01/02/20 06:08 06:08 06:08 D-Dimer 1.36 H Ferritin 471.39 H C-Reactive Protein 28.18 H 01/04/20 01/04/20 01/04/20 05:06 05:06 05:06 D-Dimer 1.26 H Ferritin 579.79 H C-Reactive Protein 29.76 H Radiology Reviewed by me: Yes (CXR - worsening pneumonia) EKG Reviewed by me: Yes (Tele SR) Hospitalist ROS - Review of Systems Constitutional: reports: sweats, weakness, malaise Gastrointestinal: denies: nausea, vomiting, abdominal pain, diarrhea, constipation, melena, hematochezia, other Genitourinary: denies: dysuria, frequency, incontinence, hematuria, retention, other - Medication Medications: Active Medications Generic Name Dose Route Start Last Admin Trade Name Freq PRN Reason Stop Dose Admin Acetaminophen 1,000 mg 12/29/19 01:59 01/04/20 02:22 Tylenol PO 1,000 mg Q6H PRN Administration Mild Pain (1-3) Albuterol Sulfate 1 puff 12/29/19 01:59 01/02/20 17:07 Proventil Hfa INH 1 puff Q6H PRN Administration Wheezing Ascorbic Acid 1,000 mg 12/29/19 09:00 01/04/20 08:43 Vitamin C PO 1,000 mg DAILY JUAN Administration Benzonatate 100 mg 12/29/19 01:59 01/04/20 02:22 Tessalon PO 100 mg Q6H PRN Administration Cough Calcium Carbonate 1,000 mg 12/29/19 07:46 01/03/20 19:28 Tums PO 1,000 mg Q4H PRN Administration Heartburn or Indigestion Calcium/Vitamin D 1 tab 01/03/20 09:00 01/04/20 08:43 Caltrate 600 + Vit D PO 1 tab DAILY JUAN Administration Dexamethasone 6 mg 12/29/19 08:00 01/04/20 08:43 Decadron PO 6 mg QAM-WM JUAN Administration Enoxaparin Sodium 40 mg 01/02/20 21:00 01/04/20 08:42 Lovenox SC 40 mg BID JUAN Administration Famotidine 20 mg 12/29/19 09:00 01/04/20 08:43 Pepcid PO 20 mg BID JUAN Administration REMDESIVIR (EUA) 100 mg/ 250 mls @ 250 mls/hr 01/03/20 17:00 01/03/20 16:56 Sodium Chloride IV 01/06/20 17:59 250 mls Q24HR JUAN Administration Mometasone Furoate/Formoterol Fumar 2 puff 12/30/19 07:00 01/04/20 05:11 Dulera 200 Mcg/5 Mcg Inhaler INH 2 puff DAILY-RT JUAN Administration Multivitamins 1 tab 01/03/20 09:00 01/04/20 08:43 Theragran PO 1 tab DAILY JUAN Administration Phenytoin Sodium 300 mg 12/29/19 21:00 01/03/20 19:25 Dilantin Er PO 300 mg HS JUAN Administration Zinc Sulfate 220 mg 12/29/19 09:00 01/04/20 08:42 Zinc Sulfate PO 220 mg DAILY JUAN Administration - Exam General Appearance: ill appearing General - other findings: Pt in significant resp distress at rest Neck: supple, no JVD Heart: RRR, no gallops, no rubs, normal peripheral pulses Respiratory: rales, rhonchi, tachypneic, wheezes Gastrointestinal: soft, non-tender, no guarding, no rigidity Extremities: no cyanosis, no clubbing Neurological: no new deficit Psychiatric: normal affect, A&O x 3 Hosp A/P - Plan DVT proph w/lovenox Sepsis/Acute hypoxic resp failure due to COVID Pneumonia - POA -on Remdesivir - started on 01/01 -on PO Dexamethasone - started on 12/28 DM2 Seizure disorder Obesity BMI 37 Rt Adrenal nodule PLAN: 01/03 Markers uptrending On 4-5 L NC Transfer to IMCU Consult Pulmonary High flow O2 if worsens Repeat CXR - done - worsening Pneumonia Cont supportive care Cont current meds as above AM labs 01/02 Cont O2 supp Cont Remdesivir/Dexamethasone Cont Vit C/Zinc Sliding scale Home O2 setup at dc Cont supportive care Cont GI & DVT prophylaxis AM labs Monitor inflammatory markers
--- NOTE | 2020-01-04 16:19 | RAD ---
PORTABLE CHEST: History: Pneumonia, hypoxia. Comparison: 12-28-2019 FINDINGS: Heart size is enlarged. Parenchymal lung changes appear slightly worse as compared to the prior exami nation. There is less optimal inspiration which can account for some of these changes, but more confl uent changes in the left lung as compared to the prior exam. IMPRESSION: Worsening pneumonia. POS: LARRY
[2020-01-04] MEDS ORDERED: [UNRECOGNIZED DRUG - OTHER] IV SCH (17:30)
[2020-01-04] MEDS: REMDESIVIR (EUA) 100 MG in Sodium Chloride 0.9% 250 ML 230 ML IV SCH (17:34)
[2020-01-04] MEDS ORDERED: Dexamethasone 4 mg/ml Vial SLOW IVP SCH (17:45)
--- NOTE | 2020-01-04 17:52 | CON ---
DATE OF CONSULTATION: 01/04/2020 CONSULTING PHYSICIAN: Dr. Molina. REASON FOR CONSULTATION: COVID with hypoxemia. HISTORY OF PRESENT ILLNESS: This is a 59-year-old female, who was admitted to this facility on 12/29/2019, with COVID-19 pneumonia. She was transferred to [facility] today because apparently she was more short of breath; however, on 5 L, she is saturating 100%. She says she has been sick for over a week. She is not sure where she acquired the infection. She is a diabetic, but takes medication to keep her blood sugars under good control. PAST MEDICAL HISTORY: 1. Seizure disorder. 2. Asthma. 3. Type 2 diabetes mellitus. PAST SURGICAL HISTORY: 1. Tubal ligation. 2. . 3. Splenectomy. MEDICATIONS: Prior to admission; 1. Metformin. 2. Phenytoin. 3. Albuterol. ALLERGIES: GLIPIZIDE. SOCIAL HISTORY: She is a nonsmoker. Drinks socially. FAMILY MEDICAL HISTORY: Remarkable for diabetes. REVIEW OF SYSTEMS: Otherwise negative. PHYSICAL EXAMINATION: VITAL SIGNS: Temperature 98.9, pulse 66, blood pressure 130/90, O2 saturation 100% on 5 L. GENERAL: She is awake, alert, in no distress. HEENT: Unremarkable. NECK: No adenopathy or JVD. LUNGS: Inspiratory crackles bilaterally. CARDIOVASCULAR: S1 and S2, regular. ABDOMEN: Soft and nontender. EXTREMITIES: No clubbing, cyanosis, or edema. LABORATORY DATA: White blood cell count 17, hematocrit 39.2, and platelet count 248. D-dimer 1.26. Sodium 138, potassium 4.3, chloride 103, CO2 of 29, BUN 15, creatinine 0.6, glucose 127. C-reactive protein is 29.76, which is up from admission at 18.69. It does not look like she has received any convalescent plasma. She is on remdesivir, but I do not see that she is on IV steroids. Chest x-ray report is in the computer, but there is no film. The report indicates worsening bilateral pneumonia. ASSESSMENT: COVID-19 pneumonia with worsening hypoxemia and inflammatory profile. PLAN: 1. She needs to go back on IV dexamethasone. 2. Tocilizumab. 3. Fresh frozen plasma. We will follow. Job ID: [id number]
[2020-01-04] MEDS ORDERED: Tocilizumab 400 MG in Sodium Chloride 0.9% 80 ML IV SCH (18:15)
[2020-01-05 06:01] LABS: Phosphorus 3.5 mg/dL (2.3-4.7)
[2020-01-05 06:06] LABS: ALT (SGPT) 23 U/L (8-55); AST (SGOT) 19 U/L (5-34); Albumin 2.7 g/dL (3.5-5.0); Alkaline Phosphatase 228 U/L (40-110); Anion Gap 9 mmol/L (10-20); BUN (Urea Nitrogen) 16 mg/dL (9.8-20.1); Bilirubin, Total 0.3 mg/dL (0.2-1.2); Calc. Creatinine Clearance 138 mL/min (70-130); Carbon Dioxide 32 mmol/L (22-29); Chloride 102 mmol/L (98-107); Estimated GFR-MDRD Greater than 90; Globulin 4.5 g/dL (2.4-3.5); Glucose 128 mg/dL (70-105); Potassium 4.3 mmol/L (3.5-5.1); Protein, Total 7.2 g/dL (6.0-8.3); Sodium 139 mmol/L (136-145)
[2020-01-05 06:15] LABS: Band 8 % (5-11); Eosinophils 1 % (0-10); Lymphocytes 10 % (21-51); MDiff Complete? YES; Mean Corpuscular HGB CONC 31.1 g/dL (32.0-36.0); Mean Corpuscular Hemoglobin 29.8 pg (27.0-31.0); Mean Corpuscular Volume 95.9 fL (78.0-98.0); Mean Platelet Volume 12.5 fL (7.4-10.4); Monocytes 2 % (0-10); Neutrophil 79 % (42-75); Platelet Count 255 thou/uL (130-400); Platelet Morphology Comment Appears Adequate; RBC Morphology Normal; Red Blood Cell (RBC) Count 4.03 mill/uL (4.20-5.40); White Blood Cell (WBC) Count 9.5 thou/uL (4.8-10.8)
[2020-01-05] MEDS: Mometasone 200 MCG/Formoterol 5 MCG 120 PUFF INHALER INH SCH (06:17)
--- NOTE | 2020-01-05 10:08 | PRG ---
DATE OF SERVICE: 01/05/2020 SUBJECTIVE: The patient never really regressed overnight. She feels fine. She is on 4 L nasal cannula. OBJECTIVE: VITAL SIGNS: Temperature 97.8, pulse 55, blood pressure 97/58, and O2 saturation 99%. HEENT: Unremarkable. NECK: No JVD. CHEST: Clear. CARDIAC: S1 and S2. Regular. ABDOMEN: Soft. EXTREMITIES: No edema. LABORATORY DATA: White blood cell count 9.5, hematocrit 38, and platelet count 255. Sodium 139, potassium 4.3, BUN 16, creatinine 0.6, and glucose 121. ASSESSMENT: COVID-19 pneumonia. PLAN: This patient can be transferred back to the COVID unit. Job ID: [id number]
[2020-01-05] MEDS: Famotidine 20 MG TAB PO SCH ×2 (10:38→20:28)
[2020-01-05] MEDS: Calcium Carbonate 600 MG + Vit D TAB PO SCH (10:38)
[2020-01-05] MEDS: Dexamethasone 4 mg/ml Vial SLOW IVP SCH (10:39)
[2020-01-05] MEDS: Multivit, Therapeutic 1 TAB PO SCH (10:39)
[2020-01-05] MEDS: Zinc Sulfate 220 MG CAP PO SCH (10:39)
[2020-01-05] MEDS: Ascorbic Acid 500 mg Chewable Tablet PO SCH (10:39)
[2020-01-05] MEDS: Enoxaparin Sodium 40 MG/0.4 ML SYRINGE SC SCH ×2 (10:40→20:27)
--- NOTE | 2020-01-05 10:56 | PDOC.HOSPP ---
- Subjective Encounter Date: 01/05/20 Encounter Time: 08:30 Subjective: Patient seen and examined for resp failure/Pneumonia. Feels slightly better. No new complaints. No overnight events - Objective Vital Signs & Weight: Vital Signs (12 hours) Temp 01/05/20 03:25 97.8 F 01/05/20 03:20 97.8 F 01/05/20 03:05 97.9 F 01/05/20 00:20 98.2 F Weight Weight 191 lb 12.8 oz Most Recent Monitor Data Heart Rate from ECG 55 NIBP 97/58 NIBP BP-Mean 71 Respiration from ECG 34 SpO2 99 I&O: 01/04/20 01/05/20 01/06/20 06:59 06:59 06:59 Intake Total 1340 700 Output Total 500 Balance 1340 200 Result Diagrams: 01/05/20 05:30 01/05/20 05:30 Additional Labs: Accuchecks 01/05/20 01/04/20 01/04/20 05:32 20:16 17:06 POC Glucose 121 H 145 H 115 H 01/04/20 10:19 POC Glucose 98 Radiology Reviewed by me: Yes (CXR - B/L Pneumonia) EKG Reviewed by me: Yes (Tele SR) Hospitalist ROS - Review of Systems Cardiovascular: denies: chest pain, palpitations, orthopnea, paroxysmal noc. dyspnea, edema, light headedness, other Gastrointestinal: denies: nausea, vomiting, abdominal pain, diarrhea, constipation, melena, hematochezia, other - Medication Medications: Active Medications Generic Name Dose Route Start Last Admin Trade Name Freq PRN Reason Stop Dose Admin Acetaminophen 1,000 mg 12/29/19 01:59 01/04/20 10:16 Tylenol PO 1,000 mg Q6H PRN Administration Mild Pain (1-3) Albuterol Sulfate 1 puff 12/29/19 01:59 01/02/20 17:07 Proventil Hfa INH 1 puff Q6H PRN Administration Wheezing Ascorbic Acid 1,000 mg 12/29/19 09:00 01/05/20 10:39 Vitamin C PO 1,000 mg DAILY JUAN Administration Benzonatate 100 mg 12/29/19 01:59 01/04/20 02:22 Tessalon PO 100 mg Q6H PRN Administration Cough Calcium Carbonate 1,000 mg 12/29/19 07:46 01/03/20 19:28 Tums PO 1,000 mg Q4H PRN Administration Heartburn or Indigestion Calcium/Vitamin D 1 tab 01/03/20 09:00 01/05/20 10:38 Caltrate 600 + Vit D PO 1 tab DAILY JUAN Administration Dexamethasone 6 mg 01/05/20 09:00 01/05/20 10:39 Decadron SLOW IVP 6 mg DAILY JUAN Administration Enoxaparin Sodium 40 mg 01/02/20 21:00 01/05/20 10:40 Lovenox SC 40 mg BID JUAN Administration Famotidine 20 mg 12/29/19 09:00 01/05/20 10:38 Pepcid PO 20 mg BID JUAN Administration REMDESIVIR (EUA) 100 mg/ 250 mls @ 250 mls/hr 01/03/20 17:00 01/04/20 17:34 Sodium Chloride IV 01/06/20 17:59 250 mls Q24HR JUAN Administration Mometasone Furoate/Formoterol Fumar 2 puff 12/30/19 07:00 01/05/20 06:17 Dulera 200 Mcg/5 Mcg Inhaler INH 2 puff DAILY-RT JUAN Administration Multivitamins 1 tab 01/03/20 09:00 01/05/20 10:39 Theragran PO 1 tab DAILY JUAN Administration Ondansetron HCl 4 mg 12/29/19 01:59 01/04/20 11:14 Zofran Odt PO 4 mg Q6H PRN Administration Nausea/Vomiting Phenytoin Sodium 300 mg 12/29/19 21:00 01/04/20 20:30 Dilantin Er PO 300 mg HS JUAN Administration Zinc Sulfate 220 mg 12/29/19 09:00 01/05/20 10:39 Zinc Sulfate PO 220 mg DAILY JUAN Administration - Exam General Appearance: ill appearing Neck: supple, no JVD Heart: RRR, no gallops, no rubs, normal peripheral pulses Respiratory: no wheezes, normal chest expansion, rales, rhonchi, tachypneic Gastrointestinal: soft, non-tender, no guarding, no rigidity Extremities: no cyanosis, no clubbing Neurological: no new deficit Psychiatric: normal affect, A&O x 3 Hosp A/P - Plan DVT proph w/lovenox Sepsis/Acute hypoxic resp failure due to COVID Pneumonia - symptom onset prob -on Remdesivir - started on 01/01 -on PO Dexamethasone - started on 12/28 -s/p Conv Plasma - 01/03 -s/p Tocilizumab - 01/03 DM2 Seizure disorder Obesity BMI 37 Rt Adrenal nodule PLAN: 01/04 Recheck markers in AM Cont O2 supp Pulmonary input appreciated Cont Steroids/Remdesivir Cont other meds AM labs Await transfer to Tele 01/03 Markers uptrending On 4-5 L NC Transfer to IMCU Consult Pulmonary High flow O2 if worsens Repeat CXR - done - worsening Pneumonia Cont supportive care Cont current meds as above AM labs 01/02 Cont O2 supp Cont Remdesivir/Dexamethasone Cont Vit C/Zinc Sliding scale Home O2 setup at dc Cont supportive care Cont GI & DVT prophylaxis AM labs Monitor inflammatory markers
[2020-01-05] MEDS: REMDESIVIR (EUA) 100 MG in Sodium Chloride 0.9% 250 ML 230 ML IV SCH (18:27)
[2020-01-06] MEDS: Mometasone 200 MCG/Formoterol 5 MCG 120 PUFF INHALER INH SCH (06:38)
[2020-01-06] MEDS: Ascorbic Acid 500 mg Chewable Tablet PO SCH (08:44)
[2020-01-06] MEDS: Dexamethasone 4 mg/ml Vial SLOW IVP SCH (08:45)
[2020-01-06] MEDS: Calcium Carbonate 600 MG + Vit D TAB PO SCH (08:46)
[2020-01-06] MEDS: Multivit, Therapeutic 1 TAB PO SCH (08:47)
[2020-01-06] MEDS: Enoxaparin Sodium 40 MG/0.4 ML SYRINGE SC SCH ×2 (08:47→20:08)
[2020-01-06] MEDS: Zinc Sulfate 220 MG CAP PO SCH (08:47)
[2020-01-06] MEDS: Famotidine 20 MG TAB PO SCH ×2 (08:47→20:08)
--- NOTE | 2020-01-06 09:26 | PRG ---
DATE OF SERVICE: 01/06/2020 SUBJECTIVE: The patient is doing about the same. OBJECTIVE: VITAL SIGNS: O2 saturation 100%, pulse 52, blood pressure 108/58. Physical exam is otherwise unchanged. LABORATORY DATA: No labs done today. ASSESSMENT AND PLAN: 1. COVID-19 pneumonia with stable O2 sats. Plan, wean oxygen as tolerated. 2. Hopefully, home soon. No further pulmonary recommendations at this time. Please recall further assistance if needed. Job ID: [id number]
[2020-01-06 09:44] LABS: #Eosinphils 0.5 thou/uL (0.0-0.7); #Lymphocytes 1.7 thou/uL (1.20-3.40); #Monocytes 0.3 thou/uL (0.11-0.59); %Basophils 0.8 % (0.0-1.0); %Eosinophils 9.5 % (0.0-10.0); %Lymphocytes 31.3 % (21.0-51.0); %Monocytes 5.3 % (0.0-10.0); %Neutrophils 53.1 % (42.0-75.0); Hemoglobin 13.4 g/dL (12.0-16.0); Mean Corpuscular HGB CONC 32.6 g/dL (32.0-36.0); Mean Corpuscular Hemoglobin 31.6 pg (27.0-31.0); Mean Corpuscular Volume 96.8 fL (78.0-98.0); Mean Platelet Volume 12.3 fL (7.4-10.4); Platelet Count 296 thou/uL (130-400); RBC Distribution Width 13.1 % (11.5-14.5); Red Blood Cell (RBC) Count 4.23 mill/uL (4.20-5.40); White Blood Cell (WBC) Count 5.6 thou/uL (4.8-10.8)
[2020-01-06 10:23] LABS: Albumin 2.6 g/dL (3.5-5.0)
[2020-01-06 10:24] LABS: Chloride 101 mmol/L (98-107); Potassium 4.5 mmol/L (3.5-5.1); Sodium 138 mmol/L (136-145)
[2020-01-06 10:26] LABS: Globulin 4.7 g/dL (2.4-3.5); Glucose 89 mg/dL (70-105); Protein, Total 7.3 g/dL (6.0-8.3)
[2020-01-06 10:27] LABS: Anion Gap 11 mmol/L (10-20); Bilirubin, Total 0.3 mg/dL (0.2-1.2); Carbon Dioxide 31 mmol/L (22-29)
[2020-01-06 10:28] LABS: Alkaline Phosphatase 224 U/L (40-110)
[2020-01-06 10:29] LABS: CRP (Inflammatory) 14.71 mg/dL (= or < 0.5); Calc. Creatinine Clearance 134 mL/min (70-130); Estimated GFR-MDRD Greater than 90
[2020-01-06 10:30] LABS: BUN (Urea Nitrogen) 17 mg/dL (9.8-20.1)
[2020-01-06 10:31] LABS: ALT (SGPT) 23 U/L (8-55); AST (SGOT) 34 U/L (5-34)
[2020-01-06] MEDS: Albuterol 200 PUFF (6.7GM INHALER) INH PRN (11:15)
[2020-01-06] MEDS: REMDESIVIR (EUA) 100 MG in Sodium Chloride 0.9% 250 ML 230 ML IV SCH (16:29)
--- NOTE | 2020-01-06 16:38 | PDOC.HOSPP ---
- Subjective Encounter Date: 01/06/20 Encounter Time: 16:00 Subjective: Patient seen and examined for respiratory failure due to COVID pneumonia. Slightly feeling better. Denies any nausea vomiting or abdominal pain. Mild cough with minimal production. - Objective Vital Signs & Weight: Vital Signs (12 hours) Temp Pulse Ox 01/06/20 12:00 98.2 F 01/06/20 08:00 98.2 F 96 Weight Weight 191 lb 12.8 oz Most Recent Monitor Data Heart Rate from ECG 58 NIBP 108/60 NIBP BP-Mean 76 Respiration from ECG 30 SpO2 100 I&O: 01/05/20 01/06/20 01/07/20 06:59 06:59 06:59 Intake Total 700 1220 Output Total 500 800 Balance 200 420 Result Diagrams: 01/06/20 09:20 01/06/20 09:20 Additional Labs: Accuchecks 01/06/20 01/05/20 01/05/20 11:34 20:36 18:44 POC Glucose 107 153 H 124 H Laboratory Tests 01/06/20 01/06/20 01/06/20 09:20 09:20 09:20 D-Dimer 3.26 H Ferritin 459.95 H C-Reactive Protein 14.71 H EKG Reviewed by me: Yes (Sinus rhythm) Hospitalist ROS - Review of Systems Cardiovascular: denies: chest pain, palpitations, orthopnea, paroxysmal noc. dyspnea, edema, light headedness, other Gastrointestinal: denies: nausea, vomiting, abdominal pain, diarrhea, constipation, melena, hematochezia, other - Medication Medications: Active Medications Generic Name Dose Route Start Last Admin Trade Name Omkarq PRN Reason Stop Dose Admin Acetaminophen 1,000 mg 12/29/19 01:59 01/04/20 10:16 Tylenol PO 1,000 mg Q6H PRN Administration Mild Pain (1-3) Albuterol Sulfate 1 puff 12/29/19 01:59 01/06/20 11:15 Proventil Hfa INH 1 puff Q6H PRN Administration Wheezing Ascorbic Acid 1,000 mg 12/29/19 09:00 01/06/20 08:44 Vitamin C PO 1,000 mg DAILY JUAN Administration Benzonatate 100 mg 12/29/19 01:59 01/04/20 02:22 Tessalon PO 100 mg Q6H PRN Administration Cough Calcium Carbonate 1,000 mg 12/29/19 07:46 01/03/20 19:28 Tums PO 1,000 mg Q4H PRN Administration Heartburn or Indigestion Calcium/Vitamin D 1 tab 01/03/20 09:00 01/06/20 08:46 Caltrate 600 + Vit D PO 1 tab DAILY JUAN Administration Dexamethasone 6 mg 01/05/20 09:00 01/06/20 08:45 Decadron SLOW IVP 6 mg DAILY JUAN Administration Enoxaparin Sodium 40 mg 01/02/20 21:00 01/06/20 08:47 Lovenox SC 40 mg BID JUAN Administration Famotidine 20 mg 12/29/19 09:00 01/06/20 08:47 Pepcid PO 20 mg BID JUAN Administration REMDESIVIR (EUA) 100 mg/ 250 mls @ 250 mls/hr 01/03/20 17:00 01/06/20 16:29 Sodium Chloride IV 01/06/20 17:59 250 mls Q24HR JUAN Administration Mometasone Furoate/Formoterol Fumar 2 puff 12/30/19 07:00 01/06/20 06:38 Dulera 200 Mcg/5 Mcg Inhaler INH 2 puff DAILY-RT JUAN Administration Multivitamins 1 tab 01/03/20 09:00 01/06/20 08:47 Theragran PO 1 tab DAILY JUAN Administration Ondansetron HCl 4 mg 12/29/19 01:59 01/04/20 11:14 Zofran Odt PO 4 mg Q6H PRN Administration Nausea/Vomiting Phenytoin Sodium 300 mg 12/29/19 21:00 01/05/20 20:28 Dilantin Er PO 300 mg HS JUAN Administration Zinc Sulfate 220 mg 12/29/19 09:00 01/06/20 08:47 Zinc Sulfate PO 220 mg DAILY JUAN Administration - Exam General Appearance: ill appearing Heart: RRR, no gallops Respiratory: no wheezes, rales, rhonchi Gastrointestinal: soft, non-tender, non-distended Extremities: no cyanosis, no clubbing Hosp A/P - Plan DVT proph w/lovenox, DVT proph w/SCDs Sepsis/Acute hypoxic resp failure due to COVID Pneumonia - symptom onset prob -on Remdesivir - started on 01/01 -on PO Dexamethasone - started on 12/28 -s/p Conv Plasma - 01/03 -s/p Tocilizumab - 01/03 DM2 Seizure disorder Obesity BMI 37 Rt Adrenal nodule PLAN: 01/05 Continue IV dexamethasone Continue Remdesivirlast day today Await transfer to telemetry floor Check a.m. labs with markers Continue other medications 01/04 Recheck markers in AM Cont O2 supp Pulmonary input appreciated Cont Steroids/Remdesivir Cont other meds AM labs Await transfer to Tele 01/03 Markers uptrending On 4-5 L NC Transfer to IMCU Consult Pulmonary High flow O2 if worsens Repeat CXR - done - worsening Pneumonia Cont supportive care Cont current meds as above AM labs 01/02 Cont O2 supp Cont Remdesivir/Dexamethasone Cont Vit C/Zinc Sliding scale Home O2 setup at dc Cont supportive care Cont GI & DVT prophylaxis AM labs Monitor inflammatory markers
[2020-01-07] MEDS: Zinc Sulfate 220 MG CAP PO SCH (07:56)
[2020-01-07] MEDS: Ascorbic Acid 500 mg Chewable Tablet PO SCH (07:56)
[2020-01-07] MEDS: Enoxaparin Sodium 40 MG/0.4 ML SYRINGE SC SCH ×2 (07:56→21:00)
[2020-01-07] MEDS: Calcium Carbonate 600 MG + Vit D TAB PO SCH (07:56)
[2020-01-07] MEDS: Famotidine 20 MG TAB PO SCH ×2 (07:56→21:00)
[2020-01-07] MEDS: Dexamethasone 4 mg/ml Vial SLOW IVP SCH (07:57)
[2020-01-07] MEDS: Multivit, Therapeutic 1 TAB PO SCH (07:57)
[2020-01-07] MEDS: Mometasone 200 MCG/Formoterol 5 MCG 120 PUFF INHALER INH SCH (08:00)
[2020-01-07 09:42] LABS: ALT (SGPT) 32 U/L (8-55); AST (SGOT) 42 U/L (5-34); Albumin 2.8 g/dL (3.5-5.0); Alkaline Phosphatase 220 U/L (40-110); Anion Gap 10 mmol/L (10-20); BUN (Urea Nitrogen) 17 mg/dL (9.8-20.1); Bilirubin, Total 0.3 mg/dL (0.2-1.2); Calc. Creatinine Clearance 140 mL/min (70-130); Carbon Dioxide 29 mmol/L (22-29); Chloride 102 mmol/L (98-107); Estimated GFR-MDRD Greater than 90; Globulin 4.2 g/dL (2.4-3.5); Glucose 122 mg/dL (70-105); Sodium 137 mmol/L (136-145)
[2020-01-07 10:37] LABS: #Basophils 0.1 thou/uL (0.0-0.2); #Eosinphils 0.6 thou/uL (0.0-0.7); #Lymphocytes 1.4 thou/uL (1.20-3.40); #Monocytes 0.3 thou/uL (0.11-0.59); #Neutrophils 3.4 thou/uL (1.40-6.50); %Basophils 1.2 % (0.0-1.0); %Eosinophils 9.7 % (0.0-10.0); %Lymphocytes 24.9 % (21.0-51.0); %Monocytes 5.7 % (0.0-10.0); %Neutrophils 58.5 % (42.0-75.0); Hemoglobin 13.9 g/dL (12.0-16.0); Mean Corpuscular HGB CONC 32.5 g/dL (32.0-36.0); Mean Corpuscular Hemoglobin 31.6 pg (27.0-31.0); Mean Corpuscular Volume 97.3 fL (78.0-98.0); Mean Platelet Volume 11.3 fL (7.4-10.4); Platelet Count 299 thou/uL (130-400); RBC Distribution Width 13.1 % (11.5-14.5); RBC Morphology Normal; White Blood Cell (WBC) Count 5.7 thou/uL (4.8-10.8)
[2020-01-07 11:35] VITALS: BMI 37.4
--- NOTE | 2020-01-07 18:37 | PDOC.HOSPP ---
- Subjective Encounter Date: 01/07/20 Encounter Time: 19:19 Subjective: Patient seen and examined for respiratory failure. Feeling better. Mild cough with some production. Shortness of breath on [id number] exertion. Currently on 2 L nasal cannula. - Objective Vital Signs & Weight: Vital Signs (12 hours) Temp Pulse Resp BP Pulse Ox 01/07/20 15:45 98.2 F 56 L 22 H 109/55 L 99 01/07/20 08:10 94 L 01/07/20 07:55 97.9 F 67 26 H 101/54 L 94 L Weight Admit Weight 193 lb 6.4 oz Weight 191 lb 12.8 oz Most Recent Monitor Data Heart Rate from ECG 47 NIBP 120/56 NIBP BP-Mean 77 Respiration from ECG 24 SpO2 100 I&O: 01/06/20 01/07/20 01/08/20 06:59 06:59 06:59 Intake Total 1220 600 160 Output Total 800 850 Balance 420 -250 160 Result Diagrams: 01/07/20 09:10 01/07/20 09:10 Additional Labs: Accuchecks 01/07/20 01/07/20 01/06/20 11:56 05:29 20:21 POC Glucose 179 H 84 116 H 01/06/20 16:47 POC Glucose 158 H EKG Reviewed by me: Yes (Sinus rhythm on telemetry monitoring) Hospitalist ROS - Review of Systems Cardiovascular: denies: chest pain, palpitations, orthopnea, paroxysmal noc. dyspnea, edema, light headedness, other Gastrointestinal: denies: nausea, vomiting, abdominal pain, diarrhea, constipation, melena, hematochezia, other - Medication Medications: Active Medications Generic Name Dose Route Start Last Admin Trade Name Freq PRN Reason Stop Dose Admin Acetaminophen 1,000 mg 12/29/19 01:59 01/04/20 10:16 Tylenol PO 1,000 mg Q6H PRN Administration Mild Pain (1-3) Albuterol Sulfate 1 puff 12/29/19 01:59 01/06/20 11:15 Proventil Hfa INH 1 puff Q6H PRN Administration Wheezing Ascorbic Acid 1,000 mg 12/29/19 09:00 01/07/20 07:56 Vitamin C PO 1,000 mg DAILY JUAN Administration Benzonatate 100 mg 12/29/19 01:59 01/04/20 02:22 Tessalon PO 100 mg Q6H PRN Administration Cough Calcium Carbonate 1,000 mg 12/29/19 07:46 01/03/20 19:28 Tums PO 1,000 mg Q4H PRN Administration Heartburn or Indigestion Calcium/Vitamin D 1 tab 01/03/20 09:00 01/07/20 07:56 Caltrate 600 + Vit D PO 1 tab DAILY JUAN Administration Dexamethasone 6 mg 01/05/20 09:00 01/07/20 07:57 Decadron SLOW IVP 6 mg DAILY JUAN Administration Enoxaparin Sodium 40 mg 01/02/20 21:00 01/07/20 07:56 Lovenox SC 40 mg BID JUAN Administration Famotidine 20 mg 12/29/19 09:00 01/07/20 07:56 Pepcid PO 20 mg BID JUAN Administration Mometasone Furoate/Formoterol Fumar 2 puff 12/30/19 07:00 01/07/20 08:00 Dulera 200 Mcg/5 Mcg Inhaler INH 2 puff DAILY-RT JUAN Administration Multivitamins 1 tab 01/03/20 09:00 01/07/20 07:57 Theragran PO 1 tab DAILY JUAN Administration Ondansetron HCl 4 mg 12/29/19 01:59 01/04/20 11:14 Zofran Odt PO 4 mg Q6H PRN Administration Nausea/Vomiting Phenytoin Sodium 300 mg 12/29/19 21:00 01/06/20 20:08 Dilantin Er PO 300 mg HS JUAN Administration Zinc Sulfate 220 mg 12/29/19 09:00 01/07/20 07:56 Zinc Sulfate PO 220 mg DAILY JUAN Administration - Exam General Appearance: ill appearing Neck: supple, symmetric, no JVD, no thyromegaly Heart: RRR, no gallops, no rubs, normal peripheral pulses Respiratory: no wheezes, rales, rhonchi, tachypneic Gastrointestinal: non-tender, non-distended, normal bowel sounds Extremities: no cyanosis Skin: normal turgor Neurological: no new deficit Psychiatric: normal affect, A&O x 3 Hosp A/P - Plan DVT proph w/lovenox Sepsis/Acute hypoxic resp failure due to COVID Pneumonia - symptom onset prob -s/p Remdesivir -on PO Dexamethasone - started on 12/28 -s/p Conv Plasma - 01/03 -s/p Tocilizumab - 01/03 DM2 Seizure disorder Obesity BMI 37 Rt Adrenal nodule -primary care physician to follow PLAN: 01/06 Continue IV dexamethasone with oxygen and inhalers Patient completed Remdesivir Continue to wean oxygen as tolerated Continue other medications as above Consult physical therapy Home O2 assessment Recheck labs in a.m. 01/05 Continue IV dexamethasone Continue Remdesivirlast today Await transfer to telemetry floor Check a.m. labs with markers Continue other medications 01/04 Recheck markers in AM Cont O2 supp Pulmonary input appreciated Cont Steroids/Remdesivir Cont other meds AM labs Await transfer to Tele 01/03 Markers uptrending On 4-5 L NC Transfer to IMCU Consult Pulmonary High flow O2 if worsens Repeat CXR - done - worsening Pneumonia Cont supportive care Cont current meds as above AM labs 01/02 Cont O2 supp Cont Remdesivir/Dexamethasone Cont Vit C/Zinc Sliding scale Home O2 setup at dc Cont supportive care Cont GI & DVT prophylaxis AM labs Monitor inflammatory markers
[2020-01-08 05:26] LABS: ALT (SGPT) 33 U/L (8-55); AST (SGOT) 33 U/L (5-34); Albumin 2.8 g/dL (3.5-5.0); Alkaline Phosphatase 202 U/L (40-110); Anion Gap 9 mmol/L (10-20); BUN (Urea Nitrogen) 21 mg/dL (9.8-20.1); Bilirubin, Total 0.2 mg/dL (0.2-1.2); CRP (Inflammatory) 5.75 mg/dL (= or < 0.5); Calc. Creatinine Clearance 132 mL/min (70-130); Calcium 8.9 mg/dL (7.8-10.44); Carbon Dioxide 31 mmol/L (22-29); Chloride 102 mmol/L (98-107); Estimated GFR-MDRD Greater than 90; Globulin 4.1 g/dL (2.4-3.5); Glucose 101 mg/dL (70-105); Potassium 3.8 mmol/L (3.5-5.1); Protein, Total 6.9 g/dL (6.0-8.3); Sodium 138 mmol/L (136-145)
[2020-01-08 05:36] LABS: #Basophils 0.1 thou/uL (0.0-0.2); #Eosinphils 0.5 thou/uL (0.0-0.7); #Lymphocytes 1.7 thou/uL (1.20-3.40); #Monocytes 0.4 thou/uL (0.11-0.59); #Neutrophils 2.4 thou/uL (1.40-6.50); %Basophils 2.4 % (0.0-1.0); %Eosinophils 10.3 % (0.0-10.0); %Lymphocytes 33.4 % (21.0-51.0); %Monocytes 7.3 % (0.0-10.0); %Neutrophils 46.6 % (42.0-75.0); Large Platelets SLIGHT; MDiff Complete? YES; Mean Corpuscular HGB CONC 30.7 g/dL (32.0-36.0); Mean Corpuscular Hemoglobin 29.4 pg (27.0-31.0); Mean Corpuscular Volume 95.8 fL (78.0-98.0); Mean Platelet Volume 12.6 fL (7.4-10.4); Platelet Count 311 thou/uL (130-400); Platelet Morphology Comment Appears Adequate; RBC Distribution Width 13.1 % (11.5-14.5); Red Blood Cell (RBC) Count 4.42 mill/uL (4.20-5.40); White Blood Cell (WBC) Count 5.2 thou/uL (4.8-10.8)
[2020-01-08] MEDS: Dexamethasone 4 mg/ml Vial SLOW IVP SCH (09:38)
[2020-01-08] MEDS: Zinc Sulfate 220 MG CAP PO SCH (09:38)
[2020-01-08] MEDS: Famotidine 20 MG TAB PO SCH ×2 (09:38→21:27)
[2020-01-08] MEDS: Calcium Carbonate 600 MG + Vit D TAB PO SCH (09:38)
[2020-01-08] MEDS: Enoxaparin Sodium 40 MG/0.4 ML SYRINGE SC SCH ×2 (09:38→21:26)
[2020-01-08] MEDS: Multivit, Therapeutic 1 TAB PO SCH (09:39)
[2020-01-08] MEDS: Ascorbic Acid 500 mg Chewable Tablet PO SCH (09:39)
[2020-01-08] MEDS: guaiFENesin ER 600 MG TAB PO SCH ×2 (09:43→21:27)
[2020-01-08] MEDS: Mometasone 200 MCG/Formoterol 5 MCG 120 PUFF INHALER INH SCH (09:43)
--- NOTE | 2020-01-08 17:56 | PDOC.HOSPP ---
- Subjective Encounter Date: 01/08/20 Encounter Time: 17:00 Subjective: Patient seen and examined for respiratory failure. Symptomatically feels much better. Denies any chest pain or palpitations. - Objective Vital Signs & Weight: Vital Signs (12 hours) Temp Pulse Pulse Pulse Resp BP BP 01/08/20 15:10 98.1 F 70 20 01/08/20 12:45 97.4 F L 68 24 H 01/08/20 11:25 62 62 131/61 112/56 L 01/08/20 09:55 01/08/20 09:50 98.7 F 65 26 H BP BP Pulse Ox Pulse Ox Pulse Ox 01/08/20 15:10 126/58 L 98 01/08/20 12:45 111/55 L 97 01/08/20 11:25 100 93 L 01/08/20 09:55 97 01/08/20 09:50 111/55 L 97 Weight Admit Weight 193 lb 6.4 oz Weight 191 lb 12.8 oz Most Recent Monitor Data Heart Rate from ECG 47 NIBP 120/56 NIBP BP-Mean 77 Respiration from ECG 24 SpO2 100 I&O: 01/07/20 01/08/20 01/09/20 06:59 06:59 06:59 Intake Total 600 1660 240 Output Total 850 250 Balance -250 1410 240 Result Diagrams: 01/09/20 05:25 01/09/20 05:25 Additional Labs: Accuchecks 01/08/20 01/08/20 01/07/20 12:46 05:37 21:13 POC Glucose 158 H 94 118 H 01/07/20 18:13 POC Glucose 131 H EKG Reviewed by me: Yes (Sinus rhythm) Hospitalist ROS - Review of Systems Cardiovascular: denies: chest pain, palpitations, orthopnea, paroxysmal noc. dyspnea, edema, light headedness, other Gastrointestinal: denies: nausea, vomiting, abdominal pain, diarrhea, constipation, melena, hematochezia, other - Medication Medications: Active Medications Generic Name Dose Route Start Last Admin Trade Name Freq PRN Reason Stop Dose Admin Acetaminophen 1,000 mg 12/29/19 01:59 01/04/20 10:16 Tylenol PO 1,000 mg Q6H PRN Administration Mild Pain (1-3) Albuterol Sulfate 1 puff 12/29/19 01:59 01/06/20 11:15 Proventil Hfa INH 1 puff Q6H PRN Administration Wheezing Ascorbic Acid 1,000 mg 12/29/19 09:00 01/08/20 09:39 Vitamin C PO 1,000 mg DAILY JUAN Administration Benzonatate 100 mg 12/29/19 01:59 01/04/20 02:22 Tessalon PO 100 mg Q6H PRN Administration Cough Calcium Carbonate 1,000 mg 12/29/19 07:46 01/03/20 19:28 Tums PO 1,000 mg Q4H PRN Administration Heartburn or Indigestion Calcium/Vitamin D 1 tab 01/03/20 09:00 01/08/20 09:38 Caltrate 600 + Vit D PO 1 tab DAILY JUAN Administration Enoxaparin Sodium 40 mg 01/02/20 21:00 01/08/20 09:38 Lovenox SC 40 mg BID JUAN Administration Famotidine 20 mg 12/29/19 09:00 01/08/20 09:38 Pepcid PO 20 mg BID JUAN Administration Guaifenesin 600 mg 01/08/20 09:00 01/08/20 09:43 Mucinex PO 600 mg Q12HR JUAN Administration Mometasone Furoate/Formoterol Fumar 2 puff 12/30/19 07:00 01/08/20 09:43 Dulera 200 Mcg/5 Mcg Inhaler INH 2 puff DAILY-RT JUAN Administration Multivitamins 1 tab 01/03/20 09:00 01/08/20 09:39 Theragran PO 1 tab DAILY JUAN Administration Ondansetron HCl 4 mg 12/29/19 01:59 01/04/20 11:14 Zofran Odt PO 4 mg Q6H PRN Administration Nausea/Vomiting Phenytoin Sodium 300 mg 12/29/19 21:00 01/07/20 21:00 Dilantin Er PO 300 mg HS JUAN Administration Sodium Chloride 10 ml 01/08/20 09:00 01/08/20 09:39 Flush - Normal Saline IVF 10 ml Q12HR JUAN Administration Zinc Sulfate 220 mg 12/29/19 09:00 01/08/20 09:38 Zinc Sulfate PO 220 mg DAILY JUAN Administration - Exam General Appearance: ill appearing Neck: supple, symmetric, no JVD, no thyromegaly Heart: RRR, no gallops, no rubs, normal peripheral pulses Respiratory: no wheezes, normal chest expansion, rales, rhonchi Gastrointestinal: soft, non-distended, normal bowel sounds, no guarding, no rigidity Extremities: no cyanosis, no clubbing Neurological: no new deficit Psychiatric: normal affect, A&O x 3 Hosp A/P - Plan DVT proph w/lovenox, DVT proph w/SCDs Sepsis/Acute hypoxic resp failure due to COVID Pneumonia - symptom onset prob -s/p Remdesivir -on PO Dexamethasone - started on 12/28 -s/p Conv Plasma - 01/03 -s/p Tocilizumab - 01/03 DM2 Seizure disorder Obesity BMI 37 Rt Adrenal nodule -primary care physician to follow PLAN: 01/07 Continue IV steroids Home O2 assessment Consult case packer and sealer for assistance with home O2 since patient is uninsured Patient will require anticoagulation for 2 weeks post discharge. She understands the risk associated with anticoagulation. 01/06 Continue IV dexamethasone with oxygen and inhalers Patient completed Remdesivir Continue to wean oxygen as tolerated Continue other medications as above Consult physical therapy Home O2 assessment Recheck labs in a.m. 01/05 Continue IV dexamethasone Continue Remdesivirlast day today Await transfer to telemetry floor Check a.m. labs with markers Continue other medications 01/04 Recheck markers in AM Cont O2 supp Pulmonary input appreciated Cont Steroids/Remdesivir Cont other meds AM labs Await transfer to Tele 01/03 Markers uptrending On 4-5 L NC Transfer to IMCU Consult Pulmonary High flow O2 if worsens Repeat CXR - done - worsening Pneumonia Cont supportive care Cont current meds as above AM labs 01/02 Cont O2 supp Cont Remdesivir/Dexamethasone Cont Vit C/Zinc Sliding scale Home O2 setup at [place] Cont supportive care Cont GI & DVT prophylaxis AM labs Monitor inflammatory markers
[2020-01-09 06:04] LABS: ALT (SGPT) 30 U/L (8-55); AST (SGOT) 26 U/L (5-34); Albumin 2.9 g/dL (3.5-5.0); Alkaline Phosphatase 187 U/L (40-110); Anion Gap 10 mmol/L (10-20); BUN (Urea Nitrogen) 15 mg/dL (9.8-20.1); Bilirubin, Total 0.2 mg/dL (0.2-1.2); Calc. Creatinine Clearance 130 mL/min (70-130); Calcium 8.7 mg/dL (7.8-10.44); Carbon Dioxide 29 mmol/L (22-29); Chloride 103 mmol/L (98-107); Estimated GFR-MDRD Greater than 90; Glucose 118 mg/dL (70-105); Potassium 4.2 mmol/L (3.5-5.1); Protein, Total 6.9 g/dL (6.0-8.3); Sodium 138 mmol/L (136-145)
[2020-01-09 06:10] LABS: #Basophils 0.1 thou/uL (0.0-0.2); #Eosinphils 0.4 thou/uL (0.0-0.7); #Monocytes 0.5 thou/uL (0.11-0.59); #Neutrophils 3.6 thou/uL (1.40-6.50); %Basophils 1.6 % (0.0-1.0); %Eosinophils 6.5 % (0.0-10.0); %Lymphocytes 30.1 % (21.0-51.0); %Neutrophils 53.8 % (42.0-75.0); Hemoglobin 13.4 g/dL (12.0-16.0); Large Platelets MODERATE; MDiff Complete? YES; Mean Corpuscular HGB CONC 31.5 g/dL (32.0-36.0); Mean Corpuscular Hemoglobin 30.5 pg (27.0-31.0); Mean Corpuscular Volume 96.9 fL (78.0-98.0); Platelet Count 302 thou/uL (130-400); Platelet Morphology Comment Appears Adequate; RBC Distribution Width 13.2 % (11.5-14.5); RBC Morphology Normal; Red Blood Cell (RBC) Count 4.39 mill/uL (4.20-5.40); White Blood Cell (WBC) Count 6.8 thou/uL (4.8-10.8)
[2020-01-09] MEDS: Zinc Sulfate 220 MG CAP PO SCH (09:45)
[2020-01-09] MEDS: guaiFENesin ER 600 MG TAB PO SCH ×2 (09:45→22:56)
[2020-01-09] MEDS: Dexamethasone 4 MG TAB PO SCH (09:45)
[2020-01-09] MEDS: Enoxaparin Sodium 40 MG/0.4 ML SYRINGE SC SCH ×2 (09:46→22:56)
[2020-01-09] MEDS: Ascorbic Acid 500 mg Chewable Tablet PO SCH (09:46)
[2020-01-09] MEDS: Multivit, Therapeutic 1 TAB PO SCH (09:46)
[2020-01-09] MEDS: Calcium Carbonate 600 MG + Vit D TAB PO SCH (09:46)
[2020-01-09] MEDS: Famotidine 20 MG TAB PO SCH ×2 (09:46→22:59)
[2020-01-09] MEDS: Albuterol 200 PUFF (6.7GM INHALER) INH PRN (09:47)
[2020-01-09] MEDS: Mometasone 200 MCG/Formoterol 5 MCG 120 PUFF INHALER INH SCH (10:21)
--- NOTE | 2020-01-09 19:43 | PDOC.HOSPP ---
- Subjective Encounter Date: 01/09/20 Encounter Time: 20:05 Subjective: Patient seen and examined for respiratory failure due to COVID-19. Short of breath on [id number] exertion. Some cough with small amount of sputum. No nausea vomiting diarrhea reported - Objective Vital Signs & Weight: Vital Signs (12 hours) Temp Pulse Resp BP BP Pulse Ox 01/09/20 16:50 96.9 F L 82 24 H 137/66 94 L 01/09/20 09:54 98.2 F 67 20 115/59 L 100 Weight Admit Weight 193 lb 6.4 oz Weight 191 lb 12.8 oz Most Recent Monitor Data Heart Rate from ECG 47 NIBP 120/56 NIBP BP-Mean 77 Respiration from ECG 24 SpO2 100 I&O: 01/08/20 01/09/20 01/10/20 06:59 06:59 06:59 Intake Total 1660 1650 960 Output Total 250 900 Balance 1410 750 960 Result Diagrams: 01/09/20 05:25 01/09/20 05:25 Additional Labs: Accuchecks 01/09/20 01/09/20 01/09/20 18:17 15:57 04:57 POC Glucose 137 H 175 H 116 H 01/08/20 21:47 POC Glucose 105 EKG Reviewed by me: Yes (Sinus rhythm on telemetry monitoring) Hospitalist ROS - Review of Systems Cardiovascular: denies: chest pain, palpitations, orthopnea, paroxysmal noc. dyspnea, edema, light headedness, other Gastrointestinal: denies: nausea, vomiting, abdominal pain, diarrhea, constipation, melena, hematochezia, other - Medication Medications: Active Medications Generic Name Dose Route Start Last Admin Trade Name Freq PRN Reason Stop Dose Admin Acetaminophen 1,000 mg 12/29/19 01:59 01/04/20 10:16 Tylenol PO 1,000 mg Q6H PRN Administration Mild Pain (1-3) Albuterol Sulfate 1 puff 12/29/19 01:59 01/06/20 11:15 Proventil Hfa INH 1 puff Q6H PRN Administration Wheezing Ascorbic Acid 1,000 mg 12/29/19 09:00 01/09/20 09:46 Vitamin C PO 1,000 mg DAILY JUAN Administration Benzonatate 100 mg 12/29/19 01:59 07/26/20 02:22 Tessalon PO 100 mg Q6H PRN Administration Cough Calcium Carbonate 1,000 mg 12/29/19 07:46 01/03/20 19:28 Tums PO 1,000 mg Q4H PRN Administration Heartburn or Indigestion Calcium/Vitamin D 1 tab 01/03/20 09:00 01/09/20 09:46 Caltrate 600 + Vit D PO 1 tab DAILY JUAN Administration Dexamethasone 6 mg 01/09/20 09:00 01/09/20 09:45 Decadron PO 6 mg DAILY JUAN Administration Enoxaparin Sodium 40 mg 01/02/20 21:00 01/09/20 09:46 Lovenox SC 40 mg BID JUAN Administration Famotidine 20 mg 12/29/19 09:00 01/09/20 09:46 Pepcid PO 20 mg BID JUAN Administration Guaifenesin 600 mg 01/08/20 09:00 01/09/20 09:45 Mucinex PO 600 mg Q12HR JUAN Administration Mometasone Furoate/Formoterol Fumar 2 puff 12/30/19 07:00 01/09/20 10:21 Dulera 200 Mcg/5 Mcg Inhaler INH 2 puff DAILY-RT JUAN Administration Multivitamins 1 tab 01/03/20 09:00 01/09/20 09:46 Theragran PO 1 tab DAILY JUAN Administration Ondansetron HCl 4 mg 12/29/19 01:59 01/04/20 11:14 Zofran Odt PO 4 mg Q6H PRN Administration Nausea/Vomiting Phenytoin Sodium 300 mg 12/29/19 21:00 01/08/20 21:26 Dilantin Er PO 300 mg HS JUAN Administration Sodium Chloride 10 ml 01/08/20 09:00 01/09/20 09:46 Flush - Normal Saline IVF 10 ml Q12HR JUAN Administration Zinc Sulfate 220 mg 12/29/19 09:00 01/09/20 09:45 Zinc Sulfate PO 220 mg DAILY JUAN Administration - Exam General Appearance: ill appearing Heart: RRR, no gallops Respiratory: rales, rhonchi Gastrointestinal: non-tender, non-distended, no rigidity Extremities: no cyanosis Neurological: no new deficit Hosp A/P - Plan DVT proph w/lovenox Sepsis/Acute hypoxic resp failure due to COVID Pneumonia - symptom onset prob 7/ 15 -s/p Remdesivir -on PO Dexamethasone - started on 12/28 -s/p Conv Plasma - 01/03 -s/p Tocilizumab - 01/03 DM2 Seizure disorder Obesity BMI 37 Rt Adrenal nodule -primary care physician to follow PLAN: Continue dexamethasone. Continue to wean O2 therapy as tolerated. Await home O2 set up. Patient is unable to provide a credit card for [facility] home oxygen set up. Patient is probably stable for discharge once oxygen is set up. Will continue Lovenox for DVT prophylaxis. Will require 2 weeks of Eliquis post discharge. 01/07 Continue steroids Home O2 assessment Consult geriatric case manager for assistance with home O2 since patient is uninsured Patient will require anticoagulation for 2 weeks post discharge. She understands the risk associated with anticoagulation. 01/06 Continue dexamethasone with oxygen and inhalers Patient completed Remdesivir Continue to wean oxygen as tolerated Continue other medications as above Consult physical therapy Home O2 assessment Recheck labs in a.m. 01/05 Continue dexamethasone Continue Remdesivirlast day today Await transfer to telemetry floor Check a.m. labs with markers Continue other medications 01/04 Recheck markers in AM Cont O2 supp Pulmonary input appreciated Cont Steroids/Remdesivir Cont other meds AM labs Await transfer to Tele 01/03 Markers uptrending On 4-5 L NC Transfer to IMCU Consult Pulmonary High flow O2 if worsens Repeat CXR - done - worsening Pneumonia Cont supportive care Cont current meds as above AM labs 01/02 Cont O2 supp Cont Remdesivir/Dexamethasone Cont Vit C/Zinc Sliding scale Home O2 setup at dc Cont supportive care Cont GI & DVT prophylaxis AM labs Monitor inflammatory markers
[2020-01-10 05:38] LABS: ALT (SGPT) 33 U/L (8-55); AST (SGOT) 27 U/L (5-34); Alkaline Phosphatase 173 U/L (40-110); Anion Gap 11 mmol/L (10-20); BUN (Urea Nitrogen) 14 mg/dL (9.8-20.1); Bilirubin, Total 0.3 mg/dL (0.2-1.2); CRP (Inflammatory) 2.49 mg/dL (= or < 0.5); Calc. Creatinine Clearance 143 mL/min (70-130); Calcium 8.7 mg/dL (7.8-10.44); Carbon Dioxide 30 mmol/L (22-29); Chloride 103 mmol/L (98-107); Estimated GFR-MDRD Greater than 90; Glucose 92 mg/dL (70-105); Sodium 140 mmol/L (136-145)
[2020-01-10] MEDS: Mometasone 200 MCG/Formoterol 5 MCG 120 PUFF INHALER INH SCH (05:47)
[2020-01-10 05:50] LABS: #Basophils 0.1 thou/uL (0.0-0.2); #Eosinphils 0.4 thou/uL (0.0-0.7); #Monocytes 0.5 thou/uL (0.11-0.59); #Neutrophils 2.9 thou/uL (1.40-6.50); %Basophils 2.2 % (0.0-1.0); %Eosinophils 6.6 % (0.0-10.0); %Lymphocytes 33.8 % (21.0-51.0); %Monocytes 8.1 % (0.0-10.0); %Neutrophils 49.4 % (42.0-75.0); Band 3 % (5-11); Eosinophils 2 % (0-10); Hemoglobin 13.4 g/dL (12.0-16.0); Lymphocytes 33 % (21-51); MDiff Complete? YES; Mean Corpuscular HGB CONC 32.1 g/dL (32.0-36.0); Mean Corpuscular Hemoglobin 30.8 pg (27.0-31.0); Mean Corpuscular Volume 96.2 fL (78.0-98.0); Mean Platelet Volume 12.5 fL (7.4-10.4); Monocytes 9 % (0-10); Neutrophil 48 % (42-75); Platelet Count 292 thou/uL (130-400); Platelet Morphology Comment Appears Adequate; RBC Distribution Width 13.5 % (11.5-14.5); RBC Morphology Normal; Reactive Lymphocytes 5 % (0-10); Red Blood Cell (RBC) Count 4.34 mill/uL (4.20-5.40); White Blood Cell (WBC) Count 5.9 thou/uL (4.8-10.8)
[2020-01-10] MEDS: Zinc Sulfate 220 MG CAP PO SCH (08:27)
[2020-01-10] MEDS: guaiFENesin ER 600 MG TAB PO SCH ×2 (08:27→22:58)
[2020-01-10] MEDS: Famotidine 20 MG TAB PO SCH ×2 (08:28→22:58)
[2020-01-10] MEDS: Dexamethasone 4 MG TAB PO SCH (08:28)
[2020-01-10] MEDS: Multivit, Therapeutic 1 TAB PO SCH (08:28)
[2020-01-10] MEDS: Ascorbic Acid 500 mg Chewable Tablet PO SCH (08:28)
[2020-01-10] MEDS: Calcium Carbonate 600 MG + Vit D TAB PO SCH (08:28)
[2020-01-10] MEDS: Enoxaparin Sodium 40 MG/0.4 ML SYRINGE SC SCH ×2 (08:31→22:58)
--- NOTE | 2020-01-10 15:12 | PDOC.HOSPP ---
- Subjective Encounter Date: 01/10/20 Encounter Time: 11:00 Subjective: Patient seen and examined for respiratory failure. Denies any new complaints. Some cough with small amount of sputum. - Objective Vital Signs & Weight: Vital Signs (12 hours) Temp Pulse Resp BP Pulse Ox 01/10/20 13:07 93 L 01/10/20 13:00 97.4 F L 73 18 154/67 H 97 01/10/20 12:56 92 L 01/10/20 08:35 98 F 65 20 96/53 L 92 L Weight Admit Weight 193 lb 6.4 oz Weight 191 lb 12.8 oz Most Recent Monitor Data Heart Rate from ECG 47 NIBP 120/56 NIBP BP-Mean 77 Respiration from ECG 24 SpO2 100 I&O: 01/09/20 01/10/20 01/11/20 06:59 06:59 06:59 Intake Total 1650 1440 720 Output Total 900 350 400 Balance 750 1090 320 Result Diagrams: 01/10/20 04:40 01/10/20 04:40 Additional Labs: Accuchecks 01/10/20 01/09/20 01/09/20 11:46 18:17 15:57 POC Glucose 146 H 137 H 175 H EKG Reviewed by me: Yes (Sinus rhythm) Hospitalist ROS - Review of Systems Cardiovascular: denies: chest pain, palpitations, orthopnea, paroxysmal noc. dyspnea, edema, light headedness, other Gastrointestinal: denies: nausea, vomiting, abdominal pain, diarrhea, constipation, melena, hematochezia, other - Medication Medications: Active Medications Generic Name Dose Route Start Last Admin Trade Name Omkarq PRN Reason Stop Dose Admin Acetaminophen 1,000 mg 12/29/19 01:59 01/04/20 10:16 Tylenol PO 1,000 mg Q6H PRN Administration Mild Pain (1-3) Albuterol Sulfate 1 puff 12/29/19 01:59 01/06/20 11:15 Proventil Hfa INH 1 puff Q6H PRN Administration Wheezing Ascorbic Acid 1,000 mg 12/29/19 09:00 01/10/20 08:28 Vitamin C PO 1,000 mg DAILY JUAN Administration Benzonatate 100 mg 12/29/19 01:59 01/04/20 02:22 Tessalon PO 100 mg Q6H PRN Administration Cough Calcium Carbonate 1,000 mg 12/29/19 07:46 01/03/20 19:28 Tums PO 1,000 mg Q4H PRN Administration Heartburn or Indigestion Calcium/Vitamin D 1 tab 01/03/20 09:00 01/10/20 08:28 Caltrate 600 + Vit D PO 1 tab DAILY JUAN Administration Dexamethasone 6 mg 01/09/20 09:00 01/10/20 08:28 Decadron PO 6 mg DAILY JUAN Administration Enoxaparin Sodium 40 mg 01/02/20 21:00 01/10/20 08:31 Lovenox SC 40 mg BID JUAN Administration Famotidine 20 mg 12/29/19 09:00 01/10/20 08:28 Pepcid PO 20 mg BID JUAN Administration Guaifenesin 600 mg 01/08/20 09:00 01/10/20 08:27 Mucinex PO 600 mg Q12HR JUAN Administration Mometasone Furoate/Formoterol Fumar 2 puff 12/30/19 07:00 01/10/20 05:47 Dulera 200 Mcg/5 Mcg Inhaler INH 2 puff DAILY-RT JUAN Administration Multivitamins 1 tab 01/03/20 09:00 01/10/20 08:28 Theragran PO 1 tab DAILY JUAN Administration Ondansetron HCl 4 mg 12/29/19 01:59 01/04/20 11:14 Zofran Odt PO 4 mg Q6H PRN Administration Nausea/Vomiting Phenytoin Sodium 300 mg 12/29/19 21:00 01/09/20 22:56 Dilantin Er PO 300 mg HS JUAN Administration Sodium Chloride 10 ml 01/08/20 09:00 01/10/20 08:32 Flush - Normal Saline IVF 10 ml Q12HR JUAN Administration Zinc Sulfate 220 mg 12/29/19 09:00 01/10/20 08:27 Zinc Sulfate PO 220 mg DAILY JUAN Administration - Exam General Appearance: NAD Heart: RRR, no gallops Respiratory: rales, rhonchi Gastrointestinal: soft, non-distended Extremities: no cyanosis Neurological: no new deficit Psychiatric: normal affect, A&O x 3 Hosp A/P - Plan DVT proph w/lovenox, DVT proph w/SCDs Sepsis/Acute hypoxic resp failure due to COVID Pneumonia - symptom onset prob -s/p Remdesivir -on PO Dexamethasone - started on 12/28 -s/p Conv Plasma - 01/03 -s/p Tocilizumab - 01/03 DM2 Seizure disorder Obesity BMI 37 Rt Adrenal nodule -primary care physician to follow PLAN: 01/09 Continue current medications including dexamethasone. Wean oxygen as tolerated. Await home oxygen set up. Monitor inflammatory markers. 01/08 Continue dexamethasone. Continue to wean O2 therapy as tolerated. Await home O2 set up. Patient is unable to provide a credit card for [facility] home oxygen set up. Patient is probably stable for discharge once oxygen is set up. Will continue Lovenox for DVT prophylaxis. Will require 2 weeks of Eliquis post discharge. 01/07 Continue steroids Home O2 assessment Consult block and case maker for assistance with home O2 since patient is uninsured Patient will require anticoagulation for 2 weeks post discharge. She understands the risk associated with anticoagulation. 01/06 Continue dexamethasone with oxygen and inhalers Patient completed Remdesivir Continue to wean oxygen as tolerated Continue other medications as above Consult physical therapy Home O2 assessment Recheck labs in a.m. 01/05 Continue dexamethasone Continue Remdesivirlast day today Await transfer to telemetry floor Check a.m. labs with markers Continue other medications 01/04 Recheck markers in AM Cont O2 supp Pulmonary input appreciated Cont Steroids/Remdesivir Cont other meds AM labs Await transfer to Tele 01/03 Markers uptrending On 4-5 L NC Transfer to IMCU Consult Pulmonary High flow O2 if worsens Repeat CXR - done - worsening Pneumonia Cont supportive care Cont current meds as above AM labs 01/02 Cont O2 supp Cont Remdesivir/Dexamethasone Cont Vit C/Zinc Sliding scale Home O2 setup at [place] Cont supportive care Cont GI & DVT prophylaxis AM labs Monitor inflammatory markers
[2020-01-11 05:46] LABS: Anion Gap 8 mmol/L (10-20); BUN (Urea Nitrogen) 14 mg/dL (9.8-20.1); Calc. Creatinine Clearance 140 mL/min (70-130); Calcium 8.9 mg/dL (7.8-10.44); Carbon Dioxide 31 mmol/L (22-29); Chloride 104 mmol/L (98-107); Estimated GFR-MDRD Greater than 90; Glucose 105 mg/dL (70-105); Potassium 4.3 mmol/L (3.5-5.1); Sodium 139 mmol/L (136-145)
[2020-01-11 06:15] LABS: #Basophils 0.1 thou/uL (0.0-0.2); #Eosinphils 0.4 thou/uL (0.0-0.7); #Monocytes 0.5 thou/uL (0.11-0.59); #Neutrophils 3.3 thou/uL (1.40-6.50); %Basophils 1.5 % (0.0-1.0); %Eosinophils 6.4 % (0.0-10.0); %Lymphocytes 31.7 % (21.0-51.0); %Monocytes 7.7 % (0.0-10.0); %Neutrophils 52.7 % (42.0-75.0); Hemoglobin 12.8 g/dL (12.0-16.0); Large Platelets SLIGHT; MDiff Complete? YES; Mean Corpuscular HGB CONC 31.7 g/dL (32.0-36.0); Mean Corpuscular Hemoglobin 30.3 pg (27.0-31.0); Mean Corpuscular Volume 95.6 fL (78.0-98.0); Mean Platelet Volume 12.6 fL (7.4-10.4); Platelet Count 273 thou/uL (130-400); Platelet Morphology Comment Appears Adequate; RBC Distribution Width 13.6 % (11.5-14.5); Red Blood Cell (RBC) Count 4.23 mill/uL (4.20-5.40); White Blood Cell (WBC) Count 6.2 thou/uL (4.8-10.8)
[2020-01-11] MEDS: Ascorbic Acid 500 mg Chewable Tablet PO SCH (07:49)
[2020-01-11] MEDS: Enoxaparin Sodium 40 MG/0.4 ML SYRINGE SC SCH ×2 (07:50→21:44)
[2020-01-11] MEDS: Famotidine 20 MG TAB PO SCH ×2 (07:50→21:45)
[2020-01-11] MEDS: Multivit, Therapeutic 1 TAB PO SCH (07:50)
[2020-01-11] MEDS: Calcium Carbonate 600 MG + Vit D TAB PO SCH (07:50)
[2020-01-11] MEDS: Zinc Sulfate 220 MG CAP PO SCH (07:50)
[2020-01-11] MEDS: guaiFENesin ER 600 MG TAB PO SCH ×2 (07:50→21:45)
[2020-01-11] MEDS: Dexamethasone 4 MG TAB PO SCH (07:51)
[2020-01-11] MEDS: Mometasone 200 MCG/Formoterol 5 MCG 120 PUFF INHALER INH SCH (08:11)
--- NOTE | 2020-01-11 18:50 | PDOC.HOSPP ---
- Subjective Encounter Date: 01/11/20 Encounter Time: 17:00 Subjective: Patient seen and examined for respiratory failure due to COVID-19 pneumonia. Denies any new complaints. Some dry cough. Short of breath on mild exertion. - Objective Vital Signs & Weight: Vital Signs (12 hours) Temp Pulse Resp BP Pulse Ox 01/11/20 16:49 98.4 F 63 24 H 117/66 90 L 01/11/20 11:09 97.8 F 64 24 H 107/76 95 01/11/20 09:08 96 01/11/20 08:16 98.4 F 59 L 28 H 99/52 L 96 Weight Admit Weight 193 lb 6.4 oz Weight 191 lb 12.8 oz Most Recent Monitor Data Heart Rate from ECG 47 NIBP 120/56 NIBP BP-Mean 77 Respiration from ECG 24 SpO2 100 I&O: 01/10/20 01/11/20 01/12/20 06:59 06:59 06:59 Intake Total 1440 1440 1100 Output Total 350 400 700 Balance 1090 1040 400 Result Diagrams: 01/11/20 04:53 01/11/20 04:53 Hospitalist ROS - Review of Systems Respiratory: reports: cough, dry, SOB with excertion Cardiovascular: denies: chest pain, palpitations, orthopnea, paroxysmal noc. dyspnea, edema, light headedness, other - Medication Medications: Active Medications Generic Name Dose Route Start Last Admin Trade Name Freq PRN Reason Stop Dose Admin Acetaminophen 1,000 mg 12/29/19 01:59 01/04/20 10:16 Tylenol PO 1,000 mg Q6H PRN Administration Mild Pain (1-3) Albuterol Sulfate 1 puff 12/29/19 01:59 01/06/20 11:15 Proventil Hfa INH 1 puff Q6H PRN Administration Wheezing Ascorbic Acid 1,000 mg 12/29/19 09:00 01/11/20 07:49 Vitamin C PO 1,000 mg DAILY JUAN Administration Benzonatate 100 mg 12/29/19 01:59 01/04/20 02:22 Tessalon PO 100 mg Q6H PRN Administration Cough Calcium Carbonate 1,000 mg 12/29/19 07:46 01/03/20 19:28 Tums PO 1,000 mg Q4H PRN Administration Heartburn or Indigestion Calcium/Vitamin D 1 tab 07/25/20 09:00 01/11/20 07:50 Caltrate 600 + Vit D PO 1 tab DAILY JUAN Administration Dexamethasone 6 mg 01/09/20 09:00 01/11/20 07:51 Decadron PO 6 mg DAILY JUAN Administration Enoxaparin Sodium 40 mg 01/02/20 21:00 01/11/20 07:50 Lovenox SC 40 mg BID JUAN Administration Famotidine 20 mg 12/29/19 09:00 01/11/20 07:50 Pepcid PO 20 mg BID JUAN Administration Guaifenesin 600 mg 01/08/20 09:00 01/11/20 07:50 Mucinex PO 600 mg Q12HR JUAN Administration Mometasone Furoate/Formoterol Fumar 2 puff 12/30/19 07:00 01/11/20 08:11 Dulera 200 Mcg/5 Mcg Inhaler INH 2 puff DAILY-RT JUAN Administration Multivitamins 1 tab 01/03/20 09:00 01/11/20 07:50 Theragran PO 1 tab DAILY JUAN Administration Ondansetron HCl 4 mg 12/29/19 01:59 01/04/20 11:14 Zofran Odt PO 4 mg Q6H PRN Administration Nausea/Vomiting Phenytoin Sodium 300 mg 12/29/19 21:00 01/10/20 22:58 Dilantin Er PO 300 mg HS JUAN Administration Sodium Chloride 10 ml 01/08/20 09:00 01/11/20 07:49 Flush - Normal Saline IVF 10 ml Q12HR JUAN Administration Zinc Sulfate 220 mg 12/29/19 09:00 01/11/20 07:50 Zinc Sulfate PO 220 mg DAILY JUAN Administration - Exam General Appearance: NAD Heart: RRR, no gallops Respiratory: rales, rhonchi Gastrointestinal: non-tender, non-distended, normal bowel sounds Extremities: no cyanosis, no clubbing Neurological: no new deficit Hosp A/P - Plan Sepsis/Acute hypoxic resp failure due to COVID Pneumonia - symptom onset prob -s/p Remdesivir -on PO Dexamethasone - started on 12/28 -s/p Conv Plasma - 01/03 -s/p Tocilizumab - 01/03 DM2 Seizure disorder Obesity BMI 37 Rt Adrenal nodule -primary care physician to follow PLAN: 01/10 Continue dexamethasone with inhalers. Wean O2 as tolerated. Home oxygen set up. DC in a.m. after home O2 set. The telephonic nurse case manager Amee was able to find a family member who can provide credit card information for home O2 setup 01/09 Continue current medications including dexamethasone. Wean oxygen as tolerated. Await home oxygen set up. Monitor inflammatory markers. 01/08 Continue dexamethasone. Continue to wean O2 therapy as tolerated. Await home O2 set up. Patient is unable to provide a credit card for [facility] oxygen set up. Patient is probably stable for discharge once oxygen is set up. Will continue Lovenox for DVT prophylaxis. Will require 2 weeks of Eliquis post discharge. 01/07 Continue steroids Home O2 assessment Consult telephonic nurse case manager for assistance with home O2 since patient is uninsured Patient will require anticoagulation for 2 weeks post discharge. She understands the risk associated with anticoagulation. 01/06 Continue dexamethasone with oxygen and inhalers Patient completed Remdesivir Continue to wean oxygen as tolerated Continue other medications as above Consult physical therapy Home O2 assessment Recheck labs in a.m. 01/05 Continue dexamethasone Continue Remdesivirlast day today Await transfer to telemetry floor Check a.m. labs with markers Continue other medications 01/04 Recheck markers in AM Cont O2 supp Pulmonary input appreciated Cont Steroids/Remdesivir Cont other meds AM labs Await transfer to Tele 01/03 Markers uptrending On 4-5 L NC Transfer to IMCU Consult Pulmonary High flow O2 if worsens Repeat CXR - done - worsening Pneumonia Cont supportive care Cont current meds as above AM labs 01/02 Cont O2 supp Cont Remdesivir/Dexamethasone Cont Vit C/Zinc Sliding scale Home O2 setup at ca Cont supportive care Cont GI & DVT prophylaxis AM labs Monitor inflammatory markers
[2020-01-12 05:24] LABS: #Basophils 0.1 thou/uL (0.0-0.2); #Eosinphils 0.3 thou/uL (0.0-0.7); #Lymphocytes 2.4 thou/uL (1.20-3.40); #Monocytes 0.6 thou/uL (0.11-0.59); %Eosinophils 5.1 % (0.0-10.0); %Lymphocytes 37.5 % (21.0-51.0); %Monocytes 9.6 % (0.0-10.0); %Neutrophils 45.8 % (42.0-75.0); Mean Corpuscular Hemoglobin 30.6 pg (27.0-31.0); Mean Corpuscular Volume 95.7 fL (78.0-98.0); Mean Platelet Volume 11.8 fL (7.4-10.4); Platelet Count 260 thou/uL (130-400); RBC Distribution Width 13.7 % (11.5-14.5); Red Blood Cell (RBC) Count 4.24 mill/uL (4.20-5.40); White Blood Cell (WBC) Count 6.5 thou/uL (4.8-10.8)
[2020-01-12 05:32] LABS: Anion Gap 11 mmol/L (10-20); BUN (Urea Nitrogen) 18 mg/dL (9.8-20.1); CRP (Inflammatory) 1.04 mg/dL (= or < 0.5); Calc. Creatinine Clearance 132 mL/min (70-130); Calcium 8.5 mg/dL (7.8-10.44); Carbon Dioxide 28 mmol/L (22-29); Chloride 104 mmol/L (98-107); Estimated GFR-MDRD Greater than 90; Glucose 98 mg/dL (70-105); Sodium 139 mmol/L (136-145)
[2020-01-12] MEDS: Mometasone 200 MCG/Formoterol 5 MCG 120 PUFF INHALER INH SCH (06:55)
[2020-01-12] MEDS: Famotidine 20 MG TAB PO SCH ×2 (10:26→22:11)
[2020-01-12] MEDS: Zinc Sulfate 220 MG CAP PO SCH (10:26)
[2020-01-12] MEDS: Dexamethasone 4 MG TAB PO SCH (10:26)
[2020-01-12] MEDS: Calcium Carbonate 600 MG + Vit D TAB PO SCH (10:26)
[2020-01-12] MEDS: guaiFENesin ER 600 MG TAB PO SCH ×2 (10:27→22:12)
[2020-01-12] MEDS: Multivit, Therapeutic 1 TAB PO SCH (10:27)
[2020-01-12] MEDS: Ascorbic Acid 500 mg Chewable Tablet PO SCH (10:27)
[2020-01-12] MEDS: Enoxaparin Sodium 40 MG/0.4 ML SYRINGE SC SCH ×2 (10:27→22:11)
--- NOTE | 2020-01-12 19:35 | PDOC.HOSPP ---
- Subjective Encounter Date: 01/12/20 Encounter Time: 16:15 Subjective: Patient seen and examined for COVID-19 pneumonia. Denies new complaints. Shortness of breath improving. Awaiting home oxygen. - Objective Vital Signs & Weight: Vital Signs (12 hours) Temp Pulse Resp BP Pulse Ox 01/12/20 18:00 98.5 F 66 18 101/56 L 92 L 01/12/20 14:07 98.4 F 72 20 104/57 L 90 L 01/12/20 11:00 97.6 F 65 18 125/60 90 L 01/12/20 08:55 94 L Weight Admit Weight 193 lb 6.4 oz Weight 191 lb 12.8 oz Most Recent Monitor Data Heart Rate from ECG 47 NIBP 120/56 NIBP BP-Mean 77 Respiration from ECG 24 SpO2 100 I&O: 01/11/20 01/12/20 01/13/20 06:59 06:59 06:59 Intake Total 1440 1100 Output Total 400 700 Balance 1040 400 Result Diagrams: 01/12/20 05:04 01/12/20 05:04 Additional Labs: Microbiology 12/29/19 00:36 Venous blood - Left Arm Blood Culture - Final NO GROWTH IN 5 DAYS 12/29/19 00:35 Venous blood - Right Hand Blood Culture - Final NO GROWTH IN 5 DAYS Laboratory Tests 01/12/20 01/12/20 01/12/20 05:04 05:04 05:04 D-Dimer 1.09 H Ferritin 296.68 H C-Reactive Protein 1.04 H EKG Reviewed by me: Yes (Sinus rhythm on telemetry monitoring) Hospitalist ROS - Review of Systems Cardiovascular: denies: chest pain, palpitations, orthopnea, paroxysmal noc. dyspnea, edema, light headedness, other Gastrointestinal: denies: nausea, vomiting, abdominal pain, diarrhea, constipation, melena, hematochezia, other - Medication Medications: Active Medications Generic Name Dose Route Start Last Admin Trade Name Freq PRN Reason Stop Dose Admin Acetaminophen 1,000 mg 12/29/19 01:59 01/04/20 10:16 Tylenol PO 1,000 mg Q6H PRN Administration Mild Pain (1-3) Albuterol Sulfate 1 puff 12/29/19 01:59 01/06/20 11:15 Proventil Hfa INH 1 puff Q6H PRN Administration Wheezing Ascorbic Acid 1,000 mg 12/29/19 09:00 01/12/20 10:27 Vitamin C PO 1,000 mg DAILY JUAN Administration Benzonatate 100 mg 12/29/19 01:59 01/04/20 02:22 Tessalon PO 100 mg Q6H PRN Administration Cough Calcium Carbonate 1,000 mg 12/29/19 07:46 01/03/20 19:28 Tums PO 1,000 mg Q4H PRN Administration Heartburn or Indigestion Calcium/Vitamin D 1 tab 01/03/20 09:00 01/12/20 10:26 Caltrate 600 + Vit D PO 1 tab DAILY JUAN Administration Dexamethasone 6 mg 01/09/20 09:00 01/12/20 10:26 Decadron PO 6 mg DAILY JUAN Administration Enoxaparin Sodium 40 mg 01/02/20 21:00 01/12/20 10:27 Lovenox SC 40 mg BID JUAN Administration Famotidine 20 mg 12/29/19 09:00 01/12/20 10:26 Pepcid PO 20 mg BID JUAN Administration Guaifenesin 600 mg 01/08/20 09:00 01/12/20 10:27 Mucinex PO 600 mg Q12HR JUAN Administration Mometasone Furoate/Formoterol Fumar 2 puff 12/30/19 07:00 01/12/20 06:55 Dulera 200 Mcg/5 Mcg Inhaler INH 2 puff DAILY-RT JUAN Administration Multivitamins 1 tab 01/03/20 09:00 01/12/20 10:27 Theragran PO 1 tab DAILY JUAN Administration Ondansetron HCl 4 mg 12/29/19 01:59 01/04/20 11:14 Zofran Odt PO 4 mg Q6H PRN Administration Nausea/Vomiting Phenytoin Sodium 300 mg 12/29/19 21:00 01/11/20 21:45 Dilantin Er PO 300 mg HS JUAN Administration Sodium Chloride 10 ml 01/08/20 09:00 01/12/20 10:27 Flush - Normal Saline IVF 10 ml Q12HR JUAN Administration Zinc Sulfate 220 mg 12/29/19 09:00 01/12/20 10:26 Zinc Sulfate PO 220 mg DAILY JUAN Administration - Exam General Appearance: NAD Neck: supple, no JVD Heart: RRR, no gallops Respiratory: no wheezes, rhonchi Gastrointestinal: soft, non-distended, normal bowel sounds Extremities: no cyanosis, no clubbing Hosp A/P - Plan DVT proph w/lovenox, DVT proph w/SCDs Sepsis/Acute hypoxic resp failure due to COVID Pneumonia - symptom onset prob -s/p Remdesivir -on PO Dexamethasone - started on 12/28 -s/p Conv Plasma - 01/03 -s/p Tocilizumab - 01/03 DM2 Seizure disorder Obesity BMI 37 Rt Adrenal nodule -primary care physician to follow PLAN: 01/11 Continue dexamethasone 6 mg daily. Continue Lovenox 40 mg twice daily for DVT prophylaxis. Continue Dulera. Patient is stable for discharge. Await home oxygen set up. 01/10 Continue dexamethasone with inhalers. Wean O2 as tolerated. Home oxygen set up. DC in a.m. after home O2 set. The oil field caser Amee was able to find a family member who can provide credit card information for home O2 setup 01/09 Continue current medications including dexamethasone. Wean oxygen as tolerated. Await home oxygen set up. Monitor inflammatory markers. 01/08 Continue dexamethasone. Continue to wean O2 therapy as tolerated. Await home O2 set up. Patient is unable to provide a credit card for [facility] home oxygen set up. Patient is probably stable for discharge once oxygen is set up. Will continue Lovenox for DVT prophylaxis. Will require 2 weeks of Eliquis post discharge. 01/07 Continue steroids Home O2 assessment Consult oil field caser for assistance with home O2 since patient is uninsured Patient will require anticoagulation for 2 weeks post discharge. She understands the risk associated with anticoagulation. 01/06 Continue dexamethasone with oxygen and inhalers Patient completed Remdesivir Continue to wean oxygen as tolerated Continue other medications as above Consult physical therapy Home O2 assessment Recheck labs in a.m. 01/05 Continue dexamethasone Continue Remdesivirlast day today Await transfer to telemetry floor Check a.m. labs with markers Continue other medications 01/04 Recheck markers in AM Cont O2 supp Pulmonary input appreciated Cont Steroids/Remdesivir Cont other meds AM labs Await transfer to Tele 01/03 Markers uptrending On 4-5 L NC Transfer to IMCU Consult Pulmonary High flow O2 if worsens Repeat CXR - done - worsening Pneumonia Cont supportive care Cont current meds as above AM labs 7/25 Cont O2 supp Cont Remdesivir/Dexamethasone Cont Vit C/Zinc Sliding scale Home O2 setup at dc Cont supportive care Cont GI & DVT prophylaxis AM labs Monitor inflammatory markers
[2020-01-13 05:20] LABS: #Basophils 0.1 thou/uL (0.0-0.2); #Eosinphils 0.2 thou/uL (0.0-0.7); #Lymphocytes 2.5 thou/uL (1.20-3.40); #Monocytes 0.7 thou/uL (0.11-0.59); #Neutrophils 4.3 thou/uL (1.40-6.50); %Basophils 0.8 % (0.0-1.0); %Lymphocytes 31.6 % (21.0-51.0); %Monocytes 9.1 % (0.0-10.0); %Neutrophils 55.4 % (42.0-75.0); Hemoglobin 13.1 g/dL (12.0-16.0); Mean Corpuscular HGB CONC 30.8 g/dL (32.0-36.0); Mean Corpuscular Hemoglobin 29.7 pg (27.0-31.0); Mean Corpuscular Volume 96.2 fL (78.0-98.0); Mean Platelet Volume 13.2 fL (7.4-10.4); Platelet Count 260 thou/uL (130-400); Red Blood Cell (RBC) Count 4.42 mill/uL (4.20-5.40); White Blood Cell (WBC) Count 7.8 thou/uL (4.8-10.8)
[2020-01-13 05:29] LABS: Anion Gap 10 mmol/L (10-20); BUN (Urea Nitrogen) 17 mg/dL (9.8-20.1); Calc. Creatinine Clearance 143 mL/min (70-130); Calcium 9.1 mg/dL (7.8-10.44); Carbon Dioxide 28 mmol/L (22-29); Chloride 104 mmol/L (98-107); Estimated GFR-MDRD Greater than 90; Glucose 98 mg/dL (70-105); Potassium 4.3 mmol/L (3.5-5.1); Sodium 138 mmol/L (136-145)
[2020-01-13] MEDS: Mometasone 200 MCG/Formoterol 5 MCG 120 PUFF INHALER INH SCH (07:27)
[2020-01-13] MEDS: Ascorbic Acid 500 mg Chewable Tablet PO SCH (08:58)
[2020-01-13] MEDS: Dexamethasone 4 MG TAB PO SCH (08:58)
[2020-01-13] MEDS: Enoxaparin Sodium 40 MG/0.4 ML SYRINGE SC SCH (08:58)
[2020-01-13] MEDS: Calcium Carbonate 600 MG + Vit D TAB PO SCH (08:58)
[2020-01-13] MEDS: guaiFENesin ER 600 MG TAB PO SCH (08:59)
[2020-01-13] MEDS: Famotidine 20 MG TAB PO SCH (08:59)
[2020-01-13] MEDS: Multivit, Therapeutic 1 TAB PO SCH (08:59)
[2020-01-13] MEDS: Zinc Sulfate 220 MG CAP PO SCH (08:59)
--- NOTE | 2020-01-13 12:58 | PDOC.HOSPP ---
- Subjective Encounter Date: 01/13/20 Encounter Time: 10:30 Subjective: Patient evaluated for respiratory failure with COVID-19. Denies any new complaints. No fever or chills - Objective Vital Signs & Weight: Vital Signs (12 hours) Temp Pulse Resp BP BP Pulse Ox 01/13/20 12:05 97.9 F 66 20 115/56 L 99 01/13/20 09:00 97.3 F L 63 24 H 114/59 L 95 01/13/20 08:36 91 L Weight Admit Weight 193 lb 6.4 oz Weight 191 lb 12.8 oz Most Recent Monitor Data Heart Rate from ECG 47 NIBP 120/56 NIBP BP-Mean 77 Respiration from ECG 24 SpO2 100 I&O: 01/12/20 01/13/20 01/14/20 06:59 06:59 06:59 Intake Total 1100 480 240 Output Total 700 Balance 400 480 240 Result Diagrams: 01/13/20 04:29 01/13/20 04:29 EKG Reviewed by me: Yes (Sinus rhythm on library monitor) Hospitalist ROS - Review of Systems Cardiovascular: denies: chest pain, palpitations, orthopnea, paroxysmal noc. dyspnea, edema, light headedness, other Gastrointestinal: denies: nausea, vomiting, abdominal pain, diarrhea, constipation, melena, hematochezia, other - Medication Medications: Active Medications Generic Name Dose Route Start Last Admin Trade Name Freq PRN Reason Stop Dose Admin Acetaminophen 1,000 mg 12/29/19 01:59 01/04/20 10:16 Tylenol PO 1,000 mg Q6H PRN Administration Mild Pain (1-3) Albuterol Sulfate 1 puff 12/29/19 01:59 01/06/20 11:15 Proventil Hfa INH 1 puff Q6H PRN Administration Wheezing Ascorbic Acid 1,000 mg 12/29/19 09:00 01/13/20 08:58 Vitamin C PO 1,000 mg DAILY JUAN Administration Benzonatate 100 mg 12/29/19 01:59 01/04/20 02:22 Tessalon PO 100 mg Q6H PRN Administration Cough Calcium Carbonate 1,000 mg 12/29/19 07:46 01/03/20 19:28 Tums PO 1,000 mg Q4H PRN Administration Heartburn or Indigestion Calcium/Vitamin D 1 tab 01/03/20 09:00 01/13/20 08:58 Caltrate 600 + Vit D PO 1 tab DAILY JUAN Administration Dexamethasone 6 mg 01/09/20 09:00 01/13/20 08:58 Decadron PO 6 mg DAILY JUAN Administration Enoxaparin Sodium 40 mg 01/02/20 21:00 01/13/20 08:58 Lovenox SC 40 mg BID JUAN Administration Famotidine 20 mg 12/29/19 09:00 01/13/20 08:59 Pepcid PO 20 mg BID JUAN Administration Guaifenesin 600 mg 01/08/20 09:00 01/13/20 08:59 Mucinex PO 600 mg Q12HR JUAN Administration Mometasone Furoate/Formoterol Fumar 2 puff 12/30/19 07:00 01/13/20 07:27 Dulera 200 Mcg/5 Mcg Inhaler INH 2 puff DAILY-RT JUAN Administration Multivitamins 1 tab 01/03/20 09:00 01/13/20 08:59 Theragran PO 1 tab DAILY JUAN Administration Ondansetron HCl 4 mg 12/29/19 01:59 01/04/20 11:14 Zofran Odt PO 4 mg Q6H PRN Administration Nausea/Vomiting Phenytoin Sodium 300 mg 12/29/19 21:00 01/12/20 22:11 Dilantin Er PO 300 mg HS JUAN Administration Sodium Chloride 10 ml 01/08/20 09:00 01/13/20 08:59 Flush - Normal Saline IVF 10 ml Q12HR JUAN Administration Zinc Sulfate 220 mg 12/29/19 09:00 01/13/20 08:59 Zinc Sulfate PO 220 mg DAILY JUAN Administration - Exam General Appearance: NAD Heart: RRR, no rubs Respiratory: rales, rhonchi Gastrointestinal: non-tender, normal bowel sounds Extremities: no cyanosis, no clubbing Neurological: no new deficit Psychiatric: normal affect, A&O x 3 Hosp A/P - Plan DVT proph w/lovenox Sepsis/Acute hypoxic resp failure due to COVID Pneumonia - symptom onset prob -s/p Remdesivir -on PO Dexamethasone - started on 12/28 -s/p Conv Plasma - 01/03 -s/p Tocilizumab - 01/03 DM2 Seizure disorder Obesity BMI 37 Rt Adrenal nodule -primary care physician to follow PLAN: 01/12 Await home oxygen set up. Patient is stable for discharge. Canceled daily labs. Inflammatory markers improving. Continue Lovenox along with dexamethasone and inhale inhalers. 01/11 Continue dexamethasone 6 mg daily. Continue Lovenox 40 mg twice daily for DVT prophylaxis. Continue Dulera. Patient is stable for discharge. Await home oxygen set up. 01/10 Continue dexamethasone with inhalers. Wean O2 as tolerated. Home oxygen set up. DC in a.m. after home O2 set. The mattress spring encaser Amee was able to find a family member who can provide credit card information for home O2 setup 01/09 Continue current medications including dexamethasone. Wean oxygen as tolerated. Await home oxygen set up. Monitor inflammatory markers. 01/08 Continue dexamethasone. Continue to wean O2 therapy as tolerated. Await home O2 set up. Patient is unable to provide a credit card for [facility] oxygen set up. Patient is probably stable for discharge once oxygen is set up. Will continue Lovenox for DVT prophylaxis. Will require 2 weeks of Eliquis post discharge. 01/07 Continue steroids Home O2 assessment Consult mattress spring encaser for assistance with home O2 since patient is uninsured Patient will require anticoagulation for 2 weeks post discharge. She understands the risk associated with anticoagulation. 01/06 Continue dexamethasone with oxygen and inhalers Patient completed Remdesivir Continue to wean oxygen as tolerated Continue other medications as above Consult physical therapy Home O2 assessment Recheck labs in a.m. 01/05 Continue dexamethasone Continue Remdesivirlast day today Await transfer to telemetry floor Check a.m. labs with markers Continue other medications 01/04 Recheck markers in AM Cont O2 supp Pulmonary input appreciated Cont Steroids/Remdesivir Cont other meds AM labs Await transfer to Tele 01/03 Markers uptrending On 4-5 L NC Transfer to IMCU Consult Pulmonary High flow O2 if worsens Repeat CXR - done - worsening Pneumonia Cont supportive care Cont current meds as above AM labs 01/02 Cont O2 supp Cont Remdesivir/Dexamethasone Cont Vit C/Zinc Sliding scale Home O2 setup at ma Cont supportive care Cont GI & DVT prophylaxis AM labs Monitor inflammatory markers
[2020-01-13 16:23] VITALS: BP 123/60; TEMP 97.6
--- NOTE | 2020-01-13 18:08 | DIS ---
DATE OF ADMISSION: 12/29/2019 DATE OF DISCHARGE: 01/13/2020 DISCHARGE DISPOSITION: Home. FOLLOWUP: 1. Follow up with primary care physician at [facility] in 1 week. 2. Follow up with Infectious Disease, Dr. Mendez in 2 weeks. ALLERGIES: THE PATIENT IS ALLERGIC TO GLIPIZIDE. DISCHARGE MEDICATIONS: 1. Eliquis 2.5 mg b.i.d. for 2 weeks. 2. Vitamin C and zinc. 3. Prednisone taper. 4. Pepcid 20 mg b.i.d. 5. Albuterol inhaler as needed. 6. All other home medications were left unchanged. CONDITION ON DISCHARGE: The patient was evaluated on the day of discharge. Denies any new complaints. Shortness of breath is improving. BRIEF HOSPITAL COURSE: The patient is a 59-year-old female with diabetes mellitus, type 2 and asthma, presented to the hospital with shortness of breath and generalized body aches with fever and chills of 3 days' duration. Workup was consistent with acute hypoxic respiratory failure secondary to COVID-19 pneumonia. She was started on empiric antibiotics along with Decadron and remdesivir. She initially showed improvement. However, 4 days later, her symptoms got worse. A repeat chest x-ray showed worsening pneumonia. She was transferred to intermediate care unit for high-flow oxygen. She was evaluated by Pulmonary, Dr. Mcadams. She received convalescent plasma with tocilizumab. After this, inflammatory markers started to improve. Her CRP at discharge is 1.0 from 29.7, ferritin is 296 from 579, and her D-dimer is 1.0 from 3.26. She is saturating 99% and 95% on 1 L nasal cannula. Home oxygen has been arranged. She appears stable for discharge. FINAL DIAGNOSES: 1. Acute hypoxic respiratory failure secondary to COVID-19 pneumonia. 2. Sepsis secondary to COVID-19 pneumonia. 3. Diabetes mellitus, type 2, diet controlled. 4. Seizure disorder. 5. Obesity with a BMI of 37. 6. Mild persistent asthma. 7. Right adrenal nodule. Primary care physician advised to follow. The patient understands the above plan of care. TIME SPENT: Time coordinating the discharge of this patient was 40 minutes. The patient was extensively counseled on COVID-19 isolation. Job ID: [id number]
== END 2020-01-13 19:35 | disposition home or self-care (01) | DRG 871 ==
LOC: ERS 21:12 → 2SW 12-29 00:43 → OBSVTOIN 12-29 00:43 → IMCU/EMU 01-04 15:54 → 2SW 01-07 07:51
PROVIDERS: ADMIT Family Medicine; ATTEND Family Medicine
PROC: 8E0ZXY6 Isolation (ICD-10-PCS; 2019-12-29)
PROC: 3E03329 Introduction of Other Anti-infective into Peripheral Vein, Percutaneous Approach (ICD-10-PCS; principal; 2020-01-02)
PROC: 3E033GC Introduction of Other Therapeutic Substance into Peripheral Vein, Percutaneous Approach (ICD-10-PCS; 2020-01-04)
PROC: 30233L1 Transfusion of Nonautologous Fresh Plasma into Peripheral Vein, Percutaneous Approach (ICD-10-PCS; 2020-01-05)
PROC: 30233K1 Transfusion of Nonautologous Frozen Plasma into Peripheral Vein, Percutaneous Approach (ICD-10-PCS; 2020-01-05)
DX: A41.89 Other specified sepsis (principal); U07.1 COVID-19; J96.01 Acute respiratory failure with hypoxia; J12.89 Other viral pneumonia; E11.9 Type 2 diabetes mellitus without complications; E66.9 Obesity, unspecified; J45.30 Mild persistent asthma, uncomplicated; E27.8 Other specified disorders of adrenal gland; J44.9 Chronic obstructive pulmonary disease, unspecified; G40.409 Other generalized epilepsy and epileptic syndromes, not intractable, without status epilepticus; I25.2 Old myocardial infarction; Z68.37 Body mass index [BMI] 37.0-37.9, adult; Z98.51 Tubal ligation status; Z90.81 Acquired absence of spleen; Z79.899 Other long term (current) drug therapy; Z79.84 Long term (current) use of oral hypoglycemic drugs; Z88.8 Allergy status to other drugs, medicaments and biological substances; Z79.51 Long term (current) use of inhaled steroids
CPT/HCPCS: 36415; 36416; 36430; 36600; 71045; 71275; 80048; 80053; 82728; 83615; 83735; 83880; 84100; 84450; 84460; 85025; 85379; 86140; 86850; 86900; 86901; 87040; 87635; 93005; 94664; 96365; 96372; 96375; G0378; J0456; J0696; J1100; J1650; J3262; J3490; J7050; J8540; Q0162; Q9967; U0003

== ENCOUNTER 2021-02-03 13:34 | Emergency (ER) | payer OTHER ==
[2021-02-03 14:50] LABS: #Basophils 0.1 thou/uL (0.0-0.2); #Eosinphils 0.7 thou/uL (0.0-0.7); #Lymphocytes 1.8 thou/uL (1.20-3.40); #Neutrophils 8.4 thou/uL (1.40-6.50); %Basophils 0.5 % (0.0-1.0); %Eosinophils 5.7 % (0.0-10.0); %Lymphocytes 14.8 % (21.0-51.0); %Monocytes 8.1 % (0.0-10.0); %Neutrophils 70.9 % (42.0-75.0); Hemoglobin 13.7 g/dL (12.0-16.0); Mean Corpuscular HGB CONC 32.9 g/dL (32.0-36.0); Mean Corpuscular Hemoglobin 31.2 pg (27.0-31.0); Mean Corpuscular Volume 94.6 fL (78.0-98.0); Mean Platelet Volume 11.7 fL (7.4-10.4); Platelet Count 252 thou/uL (130-400); RBC Distribution Width 13.5 % (11.5-14.5); Red Blood Cell (RBC) Count 4.38 mill/uL (4.20-5.40); White Blood Cell (WBC) Count 11.9 thou/uL (4.8-10.8)
[2021-02-03 15:14] LABS: ALT (SGPT) 22 U/L (8-55); AST (SGOT) 30 U/L (5-34); Albumin 3.4 g/dL (3.5-5.0); Alkaline Phosphatase 184 U/L (40-110); Anion Gap 12 mmol/L (10-20); BUN (Urea Nitrogen) 13 mg/dL (9.8-20.1); Bilirubin, Total 0.3 mg/dL (0.2-1.2); Calc. Creatinine Clearance 0 mL/min (70-130); Calcium 9.3 mg/dL (7.8-10.44); Carbon Dioxide 25 mmol/L (22-29); Chloride 106 mmol/L (98-107); Globulin 4.8 g/dL (2.4-3.5); Glucose 122 mg/dL (70-105); Potassium 3.8 mmol/L (3.5-5.1); Protein, Total 8.2 g/dL (6.0-8.3); Sodium 139 mmol/L (136-145)
[2021-02-03] MEDS ORDERED: Ketorolac Tromethamine 30 MG/ML VIAL ONE (17:55)
[2021-02-03 18:58] LABS: Troponin I Less than 0.010 ng/mL (< 0.028)
[2021-02-04 12:51] LABS: SARS-CoV-2 PCR by NAA Not Detected (NotDetected)
== END 2021-02-03 20:14 | disposition home or self-care (01) ==
LOC: ERS 13:34
DX: R07.9 Chest pain, unspecified (principal); R06.02 Shortness of breath; R05 Cough; Z20.822 Contact with and (suspected) exposure to COVID-19; I25.2 Old myocardial infarction; E78.5 Hyperlipidemia, unspecified; E78.00 Pure hypercholesterolemia, unspecified; E11.9 Type 2 diabetes mellitus without complications; J44.9 Chronic obstructive pulmonary disease, unspecified; Z79.84 Long term (current) use of oral hypoglycemic drugs; Z79.82 Long term (current) use of aspirin; Z79.899 Other long term (current) drug therapy
CPT/HCPCS: 36415; 71046; 80053; 84484; 85025; 93005; 96374; J1885; U0003; U0005

== ENCOUNTER 2021-02-15 15:14 | Inpatient (IN) | payer OTHER ==
[2021-02-15 16:23] LABS: #Eosinphils 0.7 thou/uL (0.0-0.7); #Lymphocytes 1.9 thou/uL (1.20-3.40); #Monocytes 0.9 thou/uL (0.11-0.59); #Neutrophils 8.4 thou/uL (1.40-6.50); %Basophils 0.3 % (0.0-1.0); %Eosinophils 5.6 % (0.0-10.0); %Lymphocytes 15.8 % (21.0-51.0); %Monocytes 7.3 % (0.0-10.0); Hemoglobin 13.5 g/dL (12.0-16.0); Mean Corpuscular HGB CONC 32.8 g/dL (32.0-36.0); Mean Corpuscular Hemoglobin 31.3 pg (27.0-31.0); Mean Corpuscular Volume 95.5 fL (78.0-98.0); Mean Platelet Volume 10.6 fL (7.4-10.4); Platelet Count 274 thou/uL (130-400); RBC Distribution Width 14.4 % (11.5-14.5); White Blood Cell (WBC) Count 11.8 thou/uL (4.8-10.8)
[2021-02-15 16:43] LABS: ALT (SGPT) 17 U/L (8-55); AST (SGOT) 18 U/L (5-34); Albumin 3.2 g/dL (3.5-5.0); Alkaline Phosphatase 174 U/L (40-110); Anion Gap 13 mmol/L (10-20); BUN (Urea Nitrogen) 10 mg/dL (9.8-20.1); Bilirubin, Total 0.4 mg/dL (0.2-1.2); Calc. Creatinine Clearance 0 mL/min (70-130); Carbon Dioxide 22 mmol/L (22-29); Chloride 109 mmol/L (98-107); Globulin 4.7 g/dL (2.4-3.5); Glucose 103 mg/dL (70-105); Potassium 3.5 mmol/L (3.5-5.1); Protein, Total 7.9 g/dL (6.0-8.3); Sodium 140 mmol/L (136-145)
[2021-02-15] MEDS ORDERED: Dexamethasone 4 mg/ml Vial ONE (19:10)
[2021-02-15] MEDS ORDERED: Albuterol Sulfate 1.25 MG/3 ML NEB ONE (19:10)
[2021-02-15 19:41] LABS: SARS-CoV-2 NAA Rapid Test Not Detected (NotDetected)
[2021-02-15] MEDS ORDERED: Albuterol 200 PUFF (6.7GM INHALER) ONE (19:42)
[2021-02-15] MEDS ORDERED: Azithromycin 250 MG TAB ONE (21:54)
[2021-02-15] MEDS ORDERED: Cefepime 2 GM VIAL ONE (21:54)
[2021-02-16] MEDS ORDERED: HumaLOG 300 UNITS/3 ML VIAL SC PRN ×2 (06:04)
[2021-02-16] MEDS ORDERED: Ondansetron PF 4 MG/2 ML Vial IVP PRN (06:04)
[2021-02-16] MEDS ORDERED: Dextrose 50% Abboject 50 ML SYRINGE SLOW IVP PRN (06:04)
[2021-02-16] MEDS ORDERED: Acetaminophen 325 MG TAB PO PRN (06:04)
[2021-02-16] MEDS ORDERED: Ondansetron ODT 4 MG TAB PO PRN (06:04)
[2021-02-16] MEDS ORDERED: Acetaminophen 650 MG Suppository PR PRN (06:04)
[2021-02-16] MEDS ORDERED: Dextrose 5% in Water 1,000 ML IV PRN (06:04)
[2021-02-16] MEDS ORDERED: Enoxaparin Sodium 40 MG/0.4 ML SYRINGE ONE (09:02)
[2021-02-16] MEDS ORDERED: guaiFENesin 200 MG TAB PO PRN (09:26)
[2021-02-16] MEDS ORDERED: Benzonatate 100 MG CAP PO PRN (09:26)
[2021-02-16] MEDS: Enoxaparin Sodium 40 MG/0.4 ML SYRINGE SC SCH (09:33)
[2021-02-16 10:00] LABS: Troponin I Less than 0.010 ng/mL (< 0.028)
[2021-02-16] MEDS: Mometasone 200 MCG/Formoterol 5 MCG 120 PUFF INHALER INH SCH (13:40)
[2021-02-16 15:12] VITALS: BMI 37.5
[2021-02-16] MEDS: Azithromycin 500 MG in Sodium Chloride 0.9% 250 ML 250 ML IVPB SCH (20:57)
[2021-02-16] MEDS: Dexamethasone 10 MG/ML VIAL SLOW IVP SCH (20:57)
[2021-02-16] MEDS ORDERED: cefTRIAXone\\ROCEPHIN 1 GM in Sodium Chloride 0.9% 100 ML IVPB SCH (21:00)
[2021-02-16] MEDS ORDERED: Famotidine 20 MG TAB PO SCH (21:00)
[2021-02-17] MEDS: Enoxaparin Sodium 40 MG/0.4 ML SYRINGE SC SCH (08:08)
[2021-02-17 09:07] LABS: #Lymphocytes 1.4 thou/uL (1.20-3.40); #Monocytes 0.4 thou/uL (0.11-0.59); #Neutrophils 8.2 thou/uL (1.40-6.50); %Basophils 0.1 % (0.0-1.0); %Eosinophils 0.3 % (0.0-10.0); %Lymphocytes 14.1 % (21.0-51.0); %Monocytes 4.2 % (0.0-10.0); %Neutrophils 81.3 % (42.0-75.0); Hemoglobin 13.2 g/dL (12.0-16.0); Mean Corpuscular HGB CONC 32.3 g/dL (32.0-36.0); Mean Corpuscular Hemoglobin 31.4 pg (27.0-31.0); Mean Corpuscular Volume 97.2 fL (78.0-98.0); Mean Platelet Volume 11.3 fL (7.4-10.4); Platelet Count 301 thou/uL (130-400); RBC Distribution Width 14.5 % (11.5-14.5); White Blood Cell (WBC) Count 10.1 thou/uL (4.8-10.8)
[2021-02-17 09:23] LABS: Anion Gap 9 mmol/L (10-20); BUN (Urea Nitrogen) 11 mg/dL (9.8-20.1); Calc. Creatinine Clearance 128 mL/min (70-130); Calcium 8.7 mg/dL (7.8-10.44); Carbon Dioxide 28 mmol/L (22-29); Chloride 106 mmol/L (98-107); Glucose 170 mg/dL (70-105); Potassium 3.9 mmol/L (3.5-5.1); Sodium 139 mmol/L (136-145)
[2021-02-17] MEDS: Mometasone 200 MCG/Formoterol 5 MCG 120 PUFF INHALER INH SCH (12:20)
[2021-02-17] MEDS ORDERED: Albuterol Sulfate 2.5 mg/3 ml Neb NEB PRN (14:18)
[2021-02-17] MEDS ORDERED: Loratadine 10 MG TAB PO PRN (14:20)
[2021-02-17] MEDS: Aspirin 81 mg Enteric Coated Tablet PO SCH (20:56)
[2021-02-17] MEDS: Dexamethasone 10 MG/ML VIAL SLOW IVP SCH (20:57)
[2021-02-17] MEDS: Azithromycin 500 MG in Sodium Chloride 0.9% 250 ML 250 ML IVPB SCH (20:57)
[2021-02-18] MEDS: Enoxaparin Sodium 40 MG/0.4 ML SYRINGE SC SCH (08:41)
[2021-02-18] MEDS: Mometasone 200 MCG/Formoterol 5 MCG 120 PUFF INHALER INH SCH (09:14)
[2021-02-18] MEDS ORDERED: Furosemide 20 MG/2 ML VIAL SLOW IVP SCH (16:00)
[2021-02-18] MEDS: Dexamethasone 10 MG/ML VIAL SLOW IVP SCH (20:46)
[2021-02-18] MEDS: Azithromycin 250 MG TAB PO SCH (20:46)
[2021-02-18] MEDS: Aspirin 81 mg Enteric Coated Tablet PO SCH (20:46)
[2021-02-19] MEDS: Mometasone 200 MCG/Formoterol 5 MCG 120 PUFF INHALER INH SCH (10:33)
[2021-02-19] MEDS: Enoxaparin Sodium 40 MG/0.4 ML SYRINGE SC SCH (11:03)
[2021-02-19] MEDS ORDERED: Furosemide 20 MG/2 ML VIAL SLOW IVP SCH (17:45)
[2021-02-19] MEDS: cefTRIAXone\\ROCEPHIN 1 GM in Sodium Chloride 0.9% 100 ML IVPB SCH (20:49)
[2021-02-19] MEDS: Azithromycin 250 MG TAB PO SCH (20:50)
[2021-02-19] MEDS: Dexamethasone 10 MG/ML VIAL SLOW IVP SCH (20:50)
[2021-02-19] MEDS: Aspirin 81 mg Enteric Coated Tablet PO SCH (20:50)
[2021-02-20] MEDS: Enoxaparin Sodium 40 MG/0.4 ML SYRINGE SC SCH (08:25)
[2021-02-20] MEDS: Mometasone 200 MCG/Formoterol 5 MCG 120 PUFF INHALER INH SCH (11:46)
[2021-02-20 16:10] LABS: #Eosinphils 0.3 thou/uL (0.0-0.7); #Lymphocytes 2.8 thou/uL (1.20-3.40); #Monocytes 1.3 thou/uL (0.11-0.59); #Neutrophils 8.3 thou/uL (1.40-6.50); %Basophils 0.2 % (0.0-1.0); %Eosinophils 2.5 % (0.0-10.0); %Lymphocytes 22.1 % (21.0-51.0); %Monocytes 9.9 % (0.0-10.0); %Neutrophils 65.3 % (42.0-75.0); Mean Corpuscular HGB CONC 32.9 g/dL (32.0-36.0); Mean Corpuscular Hemoglobin 31.9 pg (27.0-31.0); Mean Corpuscular Volume 96.9 fL (78.0-98.0); Mean Platelet Volume 11.5 fL (7.4-10.4); Platelet Count 300 thou/uL (130-400); RBC Distribution Width 14.1 % (11.5-14.5); Red Blood Cell (RBC) Count 4.39 mill/uL (4.20-5.40); White Blood Cell (WBC) Count 12.7 thou/uL (4.8-10.8)
[2021-02-20 16:32] LABS: Calcium 8.6 mg/dL (7.8-10.44); Chloride 104 mmol/L (98-107); Potassium 3.9 mmol/L (3.5-5.1); Sodium 139 mmol/L (136-145)
[2021-02-20 16:33] LABS: Glucose 103 mg/dL (70-105)
[2021-02-20 16:34] LABS: Carbon Dioxide 27 mmol/L (22-29)
[2021-02-20 16:36] LABS: Calc. Creatinine Clearance 123 mL/min (70-130)
[2021-02-20 16:37] LABS: BUN (Urea Nitrogen) 17 mg/dL (9.8-20.1)
[2021-02-20 16:40] LABS: Anion Gap 15 mmol/L (10-20)
[2021-02-20] MEDS: Mometasone 100 MCG/Formoterol 5 MCG 120 PUFF INHALER INH SCH (18:53)
[2021-02-20] MEDS: cefTRIAXone\\ROCEPHIN 1 GM in Sodium Chloride 0.9% 100 ML IVPB SCH (21:00)
[2021-02-20] MEDS: Dexamethasone 10 MG/ML VIAL SLOW IVP SCH (21:01)
[2021-02-20] MEDS: Aspirin 81 mg Enteric Coated Tablet PO SCH (21:01)
[2021-02-20] MEDS: Azithromycin 250 MG TAB PO SCH (21:01)
[2021-02-21 07:25] VITALS: BP 115/56; TEMP 97.8
[2021-02-21] MEDS: Mometasone 200 MCG/Formoterol 5 MCG 120 PUFF INHALER INH SCH (07:29)
[2021-02-21] MEDS: Mometasone 100 MCG/Formoterol 5 MCG 120 PUFF INHALER INH SCH (07:29)
[2021-02-21] MEDS: Enoxaparin Sodium 40 MG/0.4 ML SYRINGE SC SCH (10:14)
== END 2021-02-21 18:57 | disposition home or self-care (01) | DRG 871 ==
LOC: ERS 15:14 → ERHOLD 20:50 → ONC 02-16 14:57
PROVIDERS: ADMIT Student in an Organized Health Care Education/Training Program; ATTEND Internal Medicine
DX: A41.9 Sepsis, unspecified organism (principal); J96.01 Acute respiratory failure with hypoxia; J12.9 Viral pneumonia, unspecified; Z20.822 Contact with and (suspected) exposure to COVID-19; J44.0 Chronic obstructive pulmonary disease with (acute) lower respiratory infection; J44.1 Chronic obstructive pulmonary disease with (acute) exacerbation; J45.901 Unspecified asthma with (acute) exacerbation; E78.00 Pure hypercholesterolemia, unspecified; G40.909 Epilepsy, unspecified, not intractable, without status epilepticus; E11.9 Type 2 diabetes mellitus without complications; I08.1 Rheumatic disorders of both mitral and tricuspid valves; I25.10 Atherosclerotic heart disease of native coronary artery without angina pectoris; E27.8 Other specified disorders of adrenal gland; K21.9 Gastro-esophageal reflux disease without esophagitis; I25.2 Old myocardial infarction; Z98.51 Tubal ligation status; Z90.81 Acquired absence of spleen; Z82.49 Family history of ischemic heart disease and other diseases of the circulatory system; Z83.3 Family history of diabetes mellitus; Z88.8 Allergy status to other drugs, medicaments and biological substances; Z79.84 Long term (current) use of oral hypoglycemic drugs; Z79.82 Long term (current) use of aspirin; Z79.51 Long term (current) use of inhaled steroids; Z79.899 Other long term (current) drug therapy; B94.8 Sequelae of other specified infectious and parasitic diseases
CPT/HCPCS: 36415; 36416; 71045; 71046; 71275; 80048; 80053; 83880; 84484; 85025; 85379; 87040; 90471; 90732; 93306; 96365; 96375; G0009; J0456; J0692; J0696; J1100; J1650; J1940; J3490; J7050; Q9967; U0002

== ENCOUNTER 2021-06-30 12:10 | Outpatient (CLI) | payer OTHER | END 2021-06-30 12:11 | disposition home or self-care (01) | LOC: CT 12:10 | PROVIDERS: ATTEND Internal Medicine Pulmonary Disease | DX: R06.09 Other forms of dyspnea (principal); J84.9 Interstitial pulmonary disease, unspecified; E27.8 Other specified disorders of adrenal gland; N20.0 Calculus of kidney | CPT/HCPCS: 71250 ==

== ENCOUNTER 2022-03-28 08:10 | Outpatient (CLI) | payer OTHER | END 2022-03-28 08:11 | disposition home or self-care (01) | LOC: CT 08:10 | PROVIDERS: ATTEND Internal Medicine Pulmonary Disease | DX: U09.9 Post COVID-19 condition, unspecified (principal); J84.10 Pulmonary fibrosis, unspecified | CPT/HCPCS: 71250 ==

== ENCOUNTER 2023-07-11 13:06 | Outpatient (CLI) | payer OTHER | END 2023-07-11 13:07 | disposition home or self-care (01) | LOC: BICMAMMO 13:06 | PROVIDERS: ATTEND Student in an Organized Health Care Education/Training Program | DX: Z12.31 Encounter for screening mammogram for malignant neoplasm of breast (principal); Z91.89 Other specified personal risk factors, not elsewhere classified | CPT/HCPCS: 77063; 77067 ==

== ENCOUNTER 2024-05-12 13:55 | Outpatient (CLI) | payer OTHER | END 2024-05-12 13:56 | disposition home or self-care (01) | LOC: RAD 13:55 | PROVIDERS: ATTEND Internal Medicine | DX: R06.00 Dyspnea, unspecified (principal); J84.10 Pulmonary fibrosis, unspecified; J98.4 Other disorders of lung; I51.7 Cardiomegaly | CPT/HCPCS: 71046 ==

== ENCOUNTER 2025-03-10 12:23 | Outpatient (CLI) | payer OTHER | END 2025-03-10 12:24 | disposition home or self-care (01) | LOC: RAD 12:23 | PROVIDERS: ATTEND Family Medicine | DX: J84.10 Pulmonary fibrosis, unspecified (principal); R10.84 Generalized abdominal pain; R91.8 Other nonspecific abnormal finding of lung field | CPT/HCPCS: 71046 ==

== ENCOUNTER 2025-03-19 14:43 | Inpatient (IN) | payer OTHER ==
[2025-03-19 16:43] LABS: Hematocrit 39.0 % (36.0-47.0); Hemoglobin 12.5 g/dL (12.0-16.0); Mean Corpuscular Hemoglobin 28.0 pg (27.0-31.0); Mean Corpuscular Volume 87.4 fL (78.0-98.0); Platelet Count 421 10x3/uL (130-400); Red Blood Cell (RBC) Count 4.46 mill/uL (4.20-5.40); White Blood Cell (WBC) Count 17.46 10x3/uL (4.8-10.8)
[2025-03-19 17:01] LABS: ALT (SGPT) Less than 7 U/L (Less than 34); AST (SGOT) 15 U/L (11-34); Albumin 2.2 g/dL (3.1-4.5); Alkaline Phosphatase 187 U/L (40-110); Anion Gap 15 mmol/L (10-20); BUN (Urea Nitrogen) 11 mg/dL (9.8-20.1); Bilirubin, Total 0.7 mg/dL (0.3-1.2); Calc. Creatinine Clearance 0 mL/min (70-130); Calcium 9.7 mg/dL (7.8-10.44); Carbon Dioxide 26 mmol/L (23-31); Chloride 100 mmol/L (98-107); Globulin 5.4 g/dL (2.4-3.5); Glucose 71 mg/dL (80-115); Lipase 21 U/L (8-78); Potassium 4.6 mmol/L (3.5-5.1); Sodium 136 mmol/L (136-145)
[2025-03-19 17:09] LABS: Anisocytosis SLIGHT = 6-15 cells HPF (0-5); Burr Cells SLIGHT = 2-5 cells HPF (0-1); Platelet Adequacy Comment Platelets Normal; Poikilocytosis SLIGHT = 6-15 cells HPF (0-5); Smudge Cells 2.8 %
[2025-03-19] MEDS ORDERED: Ondansetron PF 4 MG/2 ML Vial IVP PRN (18:08)
[2025-03-19] MEDS ORDERED: Cefepime 2 GM VIAL ONE (18:22)
[2025-03-19] MEDS ORDERED: Glucagon 1 MG/ML KIT IM PRN (18:28)
[2025-03-19] MEDS ORDERED: Dextrose 50% Abboject 50 ML SYRINGE SLOW IVP PRN (18:28)
[2025-03-19] MEDS ORDERED: Ondansetron PF 4 MG/2 ML Vial ONE (18:42)
[2025-03-19] MEDS ORDERED: Vancomycin 1 GM/200 ML (FROZEN) BAG ONE (18:49)
[2025-03-19 21:25] VITALS: BMI 31.4
[2025-03-19] MEDS: Famotidine/PF 20 mg/2ml Vial SLOW IVP SCH (23:09)
[2025-03-19] MEDS: Heparin 5,000 UNITS/ML VIAL SC SCH (23:12)
[2025-03-20 04:51] LABS: #Basophils 0.05 10x3/uL (0.0-0.2); #Eosinophils 0.39 10x3/uL (0.0-0.7); #Monocytes 1.99 10x3/uL (0.11-0.59); #Neutrophils 10.54 10x3/uL (1.40-6.50); %Basophils 0.4 % (0.0-1.0); %Eosinophils 2.8 % (0.0-10.0); %Lymphocytes 6.3 % (21.0-51.0); %Monocytes 14.2 % (0.0-10.0); %Neutrophils 75.4 % (42.0-75.0); Hematocrit 36.7 % (36.0-47.0); Hemoglobin 12.0 g/dL (12.0-16.0); Mean Corpuscular Hemoglobin 28.6 pg (27.0-31.0); Mean Corpuscular Volume 87.6 fL (78.0-98.0); Platelet Count 325 10x3/uL (130-400); Red Blood Cell (RBC) Count 4.19 mill/uL (4.20-5.40); White Blood Cell (WBC) Count 13.98 10x3/uL (4.8-10.8)
[2025-03-20 05:02] LABS: Vancomycin, Random 26.6 ug/mL (See Comment)
[2025-03-20 05:04] LABS: Anion Gap 10 mmol/L (10-20); BUN (Urea Nitrogen) 9 mg/dL (9.8-20.1); Calc. Creatinine Clearance 101 mL/min (70-130); Calcium 8.7 mg/dL (7.8-10.44); Carbon Dioxide 23 mmol/L (23-31); Chloride 106 mmol/L (98-107); Glucose 67 mg/dL (80-115); Magnesium 1.7 mg/dL (1.6-2.6); Potassium 3.7 mmol/L (3.5-5.1); Sodium 135 mmol/L (136-145)
[2025-03-20] MEDS ORDERED: Non-Formulary Item 1 EACH (Albuterol 200 PUFF Inh) INH PRN (07:32)
[2025-03-20] MEDS: Phenytoin Extended Release 100 MG CAP PO SCH (09:08)
[2025-03-20 15:10] LABS: Uric Acid 4.7 mg/dL (2.5-6.2)
[2025-03-20 15:33] VITALS: BMI 31.4
[2025-03-20] MEDS: Famotidine 20 MG TAB PO SCH (22:37)
[2025-03-20] MEDS: Benzonatate 100 MG CAP PO PRN (22:37)
[2025-03-20] MEDS: Acetaminophen 500 MG TAB PO PRN (22:39)
[2025-03-20 22:57] LABS: ALT (SGPT) Less than 7 U/L (Less than 34); AST (SGOT) 12 U/L (11-34); Albumin 1.9 g/dL (3.1-4.5); Alkaline Phosphatase 171 U/L (40-110); Anion Gap 13 mmol/L (10-20); BUN (Urea Nitrogen) 9 mg/dL (9.8-20.1); Bilirubin, Total 0.4 mg/dL (0.3-1.2); Calc. Creatinine Clearance 81 mL/min (70-130); Calcium 8.7 mg/dL (7.8-10.44); Carbon Dioxide 22 mmol/L (23-31); Chloride 106 mmol/L (98-107); Globulin 4.6 g/dL (2.4-3.5); Glucose 91 mg/dL (80-115); Potassium 4.3 mmol/L (3.5-5.1); Sodium 137 mmol/L (136-145)
[2025-03-21 05:53] LABS: Hematocrit 37.8 % (36.0-47.0); Hemoglobin 11.9 g/dL (12.0-16.0); Mean Corpuscular Hemoglobin 27.9 pg (27.0-31.0); Mean Corpuscular Volume 88.7 fL (78.0-98.0); Platelet Count 289 10x3/uL (130-400); Red Blood Cell (RBC) Count 4.26 mill/uL (4.20-5.40); White Blood Cell (WBC) Count 13.16 10x3/uL (4.8-10.8)
[2025-03-21 06:18] LABS: Anisocytosis SLIGHT = 6-15 cells HPF (0-5); Platelet Adequacy Comment Platelets Normal; Poikilocytosis SLIGHT = 6-15 cells HPF (0-5); Polychromasia SLIGHT = 2-3 cells HPF (0-2)
[2025-03-21] MEDS: Enoxaparin 40 MG (0.4 mL) SYRINGE SC SCH (09:06)
[2025-03-21] MEDS: Albuterol 200 PUFF (6.7GM INHALER) INH PRN (09:56)
[2025-03-21] MEDS: GUAIFENESIN SF SOLN 200 MG/10 ML UDCUP PO PRN (16:58)
[2025-03-22 05:43] LABS: Hematocrit 35.4 % (36.0-47.0); Hemoglobin 11.3 g/dL (12.0-16.0); Mean Corpuscular Hemoglobin 28.1 pg (27.0-31.0); Mean Corpuscular Volume 88.1 fL (78.0-98.0); Platelet Count 442 10x3/uL (130-400); Red Blood Cell (RBC) Count 4.02 mill/uL (4.20-5.40); White Blood Cell (WBC) Count 13.09 10x3/uL (4.8-10.8)
[2025-03-22 06:45] LABS: ALT (SGPT) Less than 7 U/L (Less than 34); AST (SGOT) 11 U/L (11-34); Albumin 1.6 g/dL (3.1-4.5); Alkaline Phosphatase 136 U/L (40-110); Anion Gap 12 mmol/L (10-20); BUN (Urea Nitrogen) 6 mg/dL (9.8-20.1); Bilirubin, Total 0.3 mg/dL (0.3-1.2); Calc. Creatinine Clearance 109 mL/min (70-130); Calcium 8.3 mg/dL (7.8-10.44); Carbon Dioxide 22 mmol/L (23-31); Chloride 109 mmol/L (98-107); Globulin 4.1 g/dL (2.4-3.5); Glucose 73 mg/dL (80-115); Potassium 3.8 mmol/L (3.5-5.1); Sodium 139 mmol/L (136-145)
[2025-03-22 06:53] LABS: Platelet Adequacy Comment Platelets Normal; RBC Morphology Within Normal Limits; Smudge Cells 9.9 %
[2025-03-22 23:16] LABS: ALT (SGPT) Less than 7 U/L (Less than 34); AST (SGOT) 12 U/L (11-34); Albumin 1.7 g/dL (3.1-4.5); Alkaline Phosphatase 132 U/L (40-110); Anion Gap 11 mmol/L (10-20); BUN (Urea Nitrogen) 9 mg/dL (9.8-20.1); Bilirubin, Total 0.3 mg/dL (0.3-1.2); Calc. Creatinine Clearance 123 mL/min (70-130); Calcium 8.5 mg/dL (7.8-10.44); Carbon Dioxide 24 mmol/L (23-31); Chloride 108 mmol/L (98-107); Globulin 4.2 g/dL (2.4-3.5); Glucose 153 mg/dL (80-115); Potassium 3.5 mmol/L (3.5-5.1); Sodium 139 mmol/L (136-145)
[2025-03-23 05:21] LABS: Calc. Creatinine Clearance 119.0 mL/min (70-130)
[2025-03-23 05:22] LABS: Hematocrit 38.8 % (36.0-47.0); Hemoglobin 12.2 g/dL (12.0-16.0); Mean Corpuscular Hemoglobin 28.0 pg (27.0-31.0); Mean Corpuscular Volume 89.2 fL (78.0-98.0); Platelet Count 413 10x3/uL (130-400); Red Blood Cell (RBC) Count 4.35 mill/uL (4.20-5.40); White Blood Cell (WBC) Count 13.17 10x3/uL (4.8-10.8)
[2025-03-23 05:55] LABS: Anisocytosis SLIGHT = 6-15 cells HPF (0-5); Platelet Adequacy Comment Platelets Increased; Poikilocytosis SLIGHT = 6-15 cells HPF (0-5); Polychromasia SLIGHT = 2-3 cells HPF (0-2)
[2025-03-23] MEDS ORDERED: Dextrose 50% Abboject 50 ML SYRINGE ONE (09:25)
[2025-03-23] MEDS ORDERED: Ondansetron PF 4 MG/2 ML Vial ONE (09:38)
[2025-03-23] MEDS ORDERED: Lidocaine 1% PF 5 ML VIAL ONE (09:38)
[2025-03-23] MEDS ORDERED: PROPOFOL 20 ML ONE (09:39)
[2025-03-23] MEDS ORDERED: fentaNYL PF 100 MCG/2 ML SYRINGE ONE (09:39)
[2025-03-23] MEDS ORDERED: PHENYLEPHRINE-NS 100 MCG/ML 10 ML SYRINGE ONE (10:52)
[2025-03-23] MEDS ORDERED: HYDROmorphone 2 MG/ML VIAL ONE (10:57)
[2025-03-24 00:19] LABS: ALT (SGPT) Less than 7 U/L (Less than 34); AST (SGOT) 15 U/L (11-34); Albumin 1.7 g/dL (3.1-4.5); Alkaline Phosphatase 124 U/L (40-110); Anion Gap 9 mmol/L (10-20); BUN (Urea Nitrogen) 7 mg/dL (9.8-20.1); Bilirubin, Total 0.2 mg/dL (0.3-1.2); Calc. Creatinine Clearance 109 mL/min (70-130); Calcium 8.0 mg/dL (7.8-10.44); Carbon Dioxide 24 mmol/L (23-31); Chloride 107 mmol/L (98-107); Globulin 4.1 g/dL (2.4-3.5); Glucose 113 mg/dL (80-115); Potassium 3.7 mmol/L (3.5-5.1); Sodium 136 mmol/L (136-145)
[2025-03-24 05:24] LABS: #Basophils 0.06 10x3/uL (0.0-0.2); #Eosinophils 0.25 10x3/uL (0.0-0.7); #Monocytes 2.08 10x3/uL (0.11-0.59); #Neutrophils 10.43 10x3/uL (1.40-6.50); %Basophils 0.4 % (0.0-1.0); %Eosinophils 1.8 % (0.0-10.0); %Lymphocytes 7.4 % (21.0-51.0); %Monocytes 14.9 % (0.0-10.0); %Neutrophils 74.8 % (42.0-75.0); Hematocrit 36.6 % (36.0-47.0); Hemoglobin 11.4 g/dL (12.0-16.0); Mean Corpuscular Hemoglobin 28.0 pg (27.0-31.0); Mean Corpuscular Volume 89.9 fL (78.0-98.0); Platelet Count 412 10x3/uL (130-400); Red Blood Cell (RBC) Count 4.07 mill/uL (4.20-5.40); White Blood Cell (WBC) Count 13.95 10x3/uL (4.8-10.8)
[2025-03-24] MEDS ORDERED: NIFEdipine XL 60 MG ER.TAB PO SCH (09:00)
[2025-03-24 12:09] VITALS: TEMP 97.7
[2025-03-24 14:15] VITALS: BP 129/83
== END 2025-03-24 13:10 | disposition home or self-care (01) | DRG 579 ==
LOC: ERS 14:43 → 2NO 18:08 → MSONC 03-23 15:48
PROVIDERS: ADMIT Hospitalist; ATTEND Internal Medicine
PROC: 3E03329 Introduction of Other Anti-infective into Peripheral Vein, Percutaneous Approach (ICD-10-PCS; 2025-03-19)
PROC: 3E033XZ Introduction of Vasopressor into Peripheral Vein, Percutaneous Approach (ICD-10-PCS; 2025-03-19)
PROC: 07BJ0ZX Excision of Left Inguinal Lymphatic, Open Approach, Diagnostic (ICD-10-PCS; principal; 2025-03-23)
DX: L02.214 Cutaneous abscess of groin (principal); E43 Unspecified severe protein-calorie malnutrition; E66.9 Obesity, unspecified; E78.00 Pure hypercholesterolemia, unspecified; R59.1 Generalized enlarged lymph nodes; R63.4 Abnormal weight loss; R63.8 Other symptoms and signs concerning food and fluid intake; E27.8 Other specified disorders of adrenal gland; G40.409 Other generalized epilepsy and epileptic syndromes, not intractable, without status epilepticus; E11.9 Type 2 diabetes mellitus without complications; J45.909 Unspecified asthma, uncomplicated; Z98.51 Tubal ligation status; I25.2 Old myocardial infarction; Z98.890 Other specified postprocedural states; Z98.891 History of uterine scar from previous surgery; Z82.49 Family history of ischemic heart disease and other diseases of the circulatory system; Z83.3 Family history of diabetes mellitus; Z79.52 Long term (current) use of systemic steroids; Z88.8 Allergy status to other drugs, medicaments and biological substances; Z68.31 Body mass index [BMI] 31.0-31.9, adult; Z79.82 Long term (current) use of aspirin; Z79.84 Long term (current) use of oral hypoglycemic drugs; Z79.899 Other long term (current) drug therapy; R59.0 Localized enlarged lymph nodes
CPT/HCPCS: 36415; 36416; 71045; 71260; 74177; 80048; 80053; 80202; 82565; 83615; 83690; 83735; 84100; 84550; 85025; 87040; 87081; 87428; 88184; 88305; 88341; 88342; 88360; 96365; 96367; 96375; J0692; J1100; J1171; J1308; J1644; J1650; J2270; J2405; J2704; J3373; J7030; J7050; J7999; Q9967

== ENCOUNTER 2025-04-17 21:30 | Inpatient (IN) | payer OTHER ==
[~2025-04-17 21:30] MED LIST changes: -Iopamidol-370 76% 500 ML 1 ML ONE; +Iopamidol-370 76% 500 ML MDV (1 ML CHARGE) ONE
[2025-04-17 22:34] LABS: Hematocrit 40.1 % (36.0-47.0); Hemoglobin 12.8 g/dL (12.0-16.0); Mean Corpuscular Hemoglobin 27.4 pg (27.0-31.0); Mean Corpuscular Volume 85.9 fL (78.0-98.0); Platelet Count 515 10x3/uL (130-400); Red Blood Cell (RBC) Count 4.67 mill/uL (4.20-5.40); White Blood Cell (WBC) Count 17.38 10x3/uL (4.8-10.8)
[2025-04-17 22:55] LABS: Anisocytosis SLIGHT = 6-15 cells HPF (0-5); Platelet Adequacy Comment Platelets Increased; Poikilocytosis SLIGHT = 6-15 cells HPF (0-5)
[2025-04-17 23:14] LABS: ALT (SGPT) Less than 7 U/L (Less than 34); AST (SGOT) 17 U/L (11-34); Albumin 2.0 g/dL (3.1-4.5); Alkaline Phosphatase 210 U/L (40-110); Anion Gap 14 mmol/L (10-20); BUN (Urea Nitrogen) 21 mg/dL (9.8-20.1); Bilirubin, Total 0.5 mg/dL (0.3-1.2); Calc. Creatinine Clearance 0 mL/min (70-130); Calcium 9.8 mg/dL (7.8-10.44); Carbon Dioxide 27 mmol/L (23-31); Chloride 100 mmol/L (98-107); Globulin 5.4 g/dL (2.4-3.5); Glucose 136 mg/dL (80-115); Potassium 4.5 mmol/L (3.5-5.1); Sodium 136 mmol/L (136-145)
[2025-04-18] MEDS ORDERED: Cefepime 2 GM VIAL ONE
[2025-04-18] MEDS ORDERED: hydrALAZINE 20 MG/ML VIAL SLOW IVP PRN (00:51)
[2025-04-18] MEDS ORDERED: Ondansetron PF 4 MG/2 ML Vial ONE (01:00)
[2025-04-18 01:14] LABS: Bacteria/HPF 4+ HPF (None Seen); CAUTI Indications for Culture Alt mental st,lethar; Glucose, Urine (Dipstick) Normal (Negative); Leukocyte 250 Leu/uL (Negative); Protein, Urine (Dipstick) 20 mg/dL (Neg-Trace); RBC/HPF 0-3 HPF (0-3); Specific Gravity, Urine 1.039 (1.002-1.036); WBC/HPF 21-50 HPF (0-3)
[2025-04-18 01:16] LABS: Urine Culture Reflex Yes Yes
[2025-04-18] MEDS ORDERED: Ondansetron PF 4 MG/2 ML Vial IVP PRN (01:35)
[2025-04-18] MEDS ORDERED: Glucagon 1 MG/ML KIT IM PRN (01:42)
[2025-04-18] MEDS ORDERED: Dextrose 50% Abboject 50 ML SYRINGE SLOW IVP PRN (01:42)
[2025-04-18] MEDS: Vancomycin 1.5 GM / NS 500ML VIAL-2-BAG IVPB SCH (02:22)
[2025-04-18] MEDS ORDERED: Albuterol 2.5 MG (3 mL) NEB NEB PRN (02:46)
[2025-04-18] MEDS: cefTRIAXone\\ROCEPHIN 2 GM in Sodium Chloride 0.9% 100 ML IVPB SCH (03:35)
[2025-04-18 03:42] VITALS: BMI 29.3
[2025-04-18 03:51] LABS: Cocaine Metabolite Screen Negative (Negative); THC/Cannabinoid Screen Negative (Negative); Tricyclic Screen Negative (Negative)
[2025-04-18] MEDS: Azithromycin 500 MG in Sodium Chloride 0.9% 250 ML 250 ML IVPB SCH (04:12)
[2025-04-18 04:54] LABS: #Basophils 0.04 10x3/uL (0.0-0.2); #Eosinophils 0.07 10x3/uL (0.0-0.7); #Monocytes 2.08 10x3/uL (0.11-0.59); #Neutrophils 13.28 10x3/uL (1.40-6.50); %Basophils 0.2 % (0.0-1.0); %Eosinophils 0.4 % (0.0-10.0); %Lymphocytes 5.0 % (21.0-51.0); %Monocytes 12.7 % (0.0-10.0); %Neutrophils 80.8 % (42.0-75.0); Hematocrit 38.2 % (36.0-47.0); Hemoglobin 11.9 g/dL (12.0-16.0); Mean Corpuscular Hemoglobin 27.7 pg (27.0-31.0); Mean Corpuscular Volume 88.8 fL (78.0-98.0); Platelet Count 396 10x3/uL (130-400); Red Blood Cell (RBC) Count 4.30 mill/uL (4.20-5.40); White Blood Cell (WBC) Count 16.44 10x3/uL (4.8-10.8)
[2025-04-18 05:09] LABS: ALT (SGPT) Less than 7 U/L (Less than 34); AST (SGOT) 12 U/L (11-34); Albumin 1.8 g/dL (3.1-4.5); Alkaline Phosphatase 178 U/L (40-110); Anion Gap 13 mmol/L (10-20); BUN (Urea Nitrogen) 18 mg/dL (9.8-20.1); Bilirubin, Total 0.4 mg/dL (0.3-1.2); Calc. Creatinine Clearance 76 mL/min (70-130); Calcium 8.4 mg/dL (7.8-10.44); Carbon Dioxide 21 mmol/L (23-31); Chloride 108 mmol/L (98-107); Globulin 4.5 g/dL (2.4-3.5); Glucose 116 mg/dL (80-115); Potassium 4.5 mmol/L (3.5-5.1); Sodium 137 mmol/L (136-145)
[2025-04-18] MEDS: Famotidine 20 MG TAB PO SCH (08:11)
[2025-04-18] MEDS: Famotidine/PF 20 mg/2ml Vial SLOW IVP SCH (08:11)
[2025-04-18] MEDS: Acetaminophen 325 MG TAB PO PRN (09:07)
[2025-04-19 04:40] LABS: Hematocrit 36.2 % (36.0-47.0); Hemoglobin 11.6 g/dL (12.0-16.0); Mean Corpuscular Hemoglobin 27.9 pg (27.0-31.0); Mean Corpuscular Volume 87.0 fL (78.0-98.0); Platelet Count 461 10x3/uL (130-400); Red Blood Cell (RBC) Count 4.16 mill/uL (4.20-5.40); White Blood Cell (WBC) Count 14.29 10x3/uL (4.8-10.8)
[2025-04-19 04:47] LABS: Anion Gap 11 mmol/L (10-20); BUN (Urea Nitrogen) 9 mg/dL (9.8-20.1); Calc. Creatinine Clearance 114 mL/min (70-130); Calcium 8.4 mg/dL (7.8-10.44); Carbon Dioxide 21 mmol/L (23-31); Chloride 109 mmol/L (98-107); Glucose 123 mg/dL (80-115); Potassium 3.6 mmol/L (3.5-5.1); Sodium 137 mmol/L (136-145)
[2025-04-19 05:08] LABS: Burr Cells SLIGHT = 2-5 cells HPF (0-1); Platelet Adequacy Comment Platelets Increased; Smudge Cells 6.9 %
[2025-04-19] MEDS: Phenytoin 125 MG/5 ML UDCUP PO SCH ×2 (10:10→20:43)
[2025-04-19] MEDS ORDERED: Phenytoin 125 MG/5 ML UDCUP PO SCH (21:00)
[2025-04-20 00:14] LABS: Magnesium 1.5 mg/dL (1.6-2.6)
[2025-04-20] MEDS: Magnesium 2 GM/50 ML(in water) 2 GM in Premix 1 BAG IVPB SCH (01:04)
[2025-04-20] MEDS: cefTRIAXone (ROCEPHIN) 2 GM VIAL ONE (02:13)
[2025-04-20] MEDS: Benzonatate 100 MG CAP PO PRN (02:31)
[2025-04-20 04:36] LABS: #Basophils 0.07 10x3/uL (0.0-0.2); #Eosinophils 0.65 10x3/uL (0.0-0.7); #Monocytes 2.04 10x3/uL (0.11-0.59); #Neutrophils 10.64 10x3/uL (1.40-6.50); %Basophils 0.5 % (0.0-1.0); %Eosinophils 4.5 % (0.0-10.0); %Lymphocytes 6.5 % (21.0-51.0); %Monocytes 14.0 % (0.0-10.0); %Neutrophils 72.9 % (42.0-75.0); Hematocrit 38.4 % (36.0-47.0); Hemoglobin 12.3 g/dL (12.0-16.0); Mean Corpuscular Hemoglobin 28.0 pg (27.0-31.0); Mean Corpuscular Volume 87.3 fL (78.0-98.0); Platelet Count 386 10x3/uL (130-400); Red Blood Cell (RBC) Count 4.40 mill/uL (4.20-5.40); White Blood Cell (WBC) Count 14.57 10x3/uL (4.8-10.8)
[2025-04-20 04:47] LABS: Anion Gap 15 mmol/L (10-20); BUN (Urea Nitrogen) 7 mg/dL (9.8-20.1); Calc. Creatinine Clearance 128 mL/min (70-130); Calcium 8.6 mg/dL (7.8-10.44); Carbon Dioxide 20 mmol/L (23-31); Chloride 107 mmol/L (98-107); Glucose 96 mg/dL (80-115); Potassium 4.3 mmol/L (3.5-5.1); Sodium 138 mmol/L (136-145)
[2025-04-21 04:00] LABS: Hematocrit 37.4 % (36.0-47.0); Hemoglobin 12.1 g/dL (12.0-16.0); Mean Corpuscular Hemoglobin 27.9 pg (27.0-31.0); Mean Corpuscular Volume 86.4 fL (78.0-98.0); Platelet Count 383 10x3/uL (130-400); Red Blood Cell (RBC) Count 4.33 mill/uL (4.20-5.40); White Blood Cell (WBC) Count 13.04 10x3/uL (4.8-10.8)
[2025-04-21 04:09] LABS: Anion Gap 13 mmol/L (10-20); BUN (Urea Nitrogen) 8 mg/dL (9.8-20.1); Calc. Creatinine Clearance 128 mL/min (70-130); Calcium 8.9 mg/dL (7.8-10.44); Carbon Dioxide 24 mmol/L (23-31); Chloride 104 mmol/L (98-107); Glucose 87 mg/dL (80-115); Magnesium 1.7 mg/dL (1.6-2.6); Potassium 4.1 mmol/L (3.5-5.1); Sodium 137 mmol/L (136-145)
[2025-04-21 04:42] LABS: Burr Cells SLIGHT = 2-5 cells HPF (0-1); Nucleated RBC (Manual Ct) 1 % (0); Platelet Adequacy Comment Platelets Normal; Smudge Cells 7.9 %; Target Cells SLIGHT = 2-5 cells HPF (0-1)
[2025-04-22 03:32] LABS: Hematocrit 35.5 % (36.0-47.0); Hemoglobin 11.3 g/dL (12.0-16.0); Mean Corpuscular Hemoglobin 27.5 pg (27.0-31.0); Mean Corpuscular Volume 86.4 fL (78.0-98.0); Platelet Count 470 10x3/uL (130-400); Red Blood Cell (RBC) Count 4.11 mill/uL (4.20-5.40); White Blood Cell (WBC) Count 12.95 10x3/uL (4.8-10.8)
[2025-04-22 03:46] LABS: Anion Gap 11 mmol/L (10-20); BUN (Urea Nitrogen) 10 mg/dL (9.8-20.1); Calc. Creatinine Clearance 110 mL/min (70-130); Calcium 8.3 mg/dL (7.8-10.44); Carbon Dioxide 25 mmol/L (23-31); Chloride 104 mmol/L (98-107); Glucose 103 mg/dL (80-115); Magnesium 1.6 mg/dL (1.6-2.6); Potassium 3.9 mmol/L (3.5-5.1); Sodium 136 mmol/L (136-145)
[2025-04-22 03:55] LABS: Anisocytosis SLIGHT = 6-15 cells HPF (0-5); Platelet Adequacy Comment Platelets Increased; Target Cells SLIGHT = 2-5 cells HPF (0-1)
[2025-04-23 04:31] LABS: #Basophils 0.07 10x3/uL (0.0-0.2); #Eosinophils 0.59 10x3/uL (0.0-0.7); #Monocytes 2.07 10x3/uL (0.11-0.59); #Neutrophils 8.77 10x3/uL (1.40-6.50); %Basophils 0.6 % (0.0-1.0); %Eosinophils 4.7 % (0.0-10.0); %Lymphocytes 7.3 % (21.0-51.0); %Monocytes 16.4 % (0.0-10.0); %Neutrophils 69.1 % (42.0-75.0); Hematocrit 34.2 % (36.0-47.0); Hemoglobin 10.9 g/dL (12.0-16.0); Mean Corpuscular Hemoglobin 27.3 pg (27.0-31.0); Mean Corpuscular Volume 85.5 fL (78.0-98.0); Platelet Count 488 10x3/uL (130-400); Red Blood Cell (RBC) Count 4.00 mill/uL (4.20-5.40); White Blood Cell (WBC) Count 12.66 10x3/uL (4.8-10.8)
[2025-04-23 04:47] LABS: Anion Gap 16 mmol/L (10-20); BUN (Urea Nitrogen) 9 mg/dL (9.8-20.1); Calc. Creatinine Clearance 126 mL/min (70-130); Calcium 8.3 mg/dL (7.8-10.44); Carbon Dioxide 24 mmol/L (23-31); Chloride 102 mmol/L (98-107); Glucose 78 mg/dL (80-115); Potassium 4.7 mmol/L (3.5-5.1); Sodium 137 mmol/L (136-145)
[2025-04-23] MEDS: levETIRAcetam 500 MG (5 mL) VIAL SLOW IVP SCH (08:44)
[2025-04-23 15:48] VITALS: BMI 29.3
[2025-04-23] MEDS: levETIRAcetam 500 MG TAB PO SCH (20:00)
[2025-04-24 04:33] LABS: #Basophils 0.09 10x3/uL (0.0-0.2); #Eosinophils 0.64 10x3/uL (0.0-0.7); #Monocytes 2.15 10x3/uL (0.11-0.59); #Neutrophils 8.12 10x3/uL (1.40-6.50); %Basophils 0.8 % (0.0-1.0); %Eosinophils 5.4 % (0.0-10.0); %Lymphocytes 6.5 % (21.0-51.0); %Monocytes 18.1 % (0.0-10.0); %Neutrophils 68.1 % (42.0-75.0); Hematocrit 34.9 % (36.0-47.0); Hemoglobin 10.9 g/dL (12.0-16.0); Mean Corpuscular Hemoglobin 27.2 pg (27.0-31.0); Mean Corpuscular Volume 87.0 fL (78.0-98.0); Platelet Count 496 10x3/uL (130-400); Red Blood Cell (RBC) Count 4.01 mill/uL (4.20-5.40); White Blood Cell (WBC) Count 11.91 10x3/uL (4.8-10.8)
[2025-04-24 04:49] LABS: Anion Gap 14 mmol/L (10-20); BUN (Urea Nitrogen) 9 mg/dL (9.8-20.1); Calc. Creatinine Clearance 126 mL/min (70-130); Calcium 8.8 mg/dL (7.8-10.44); Carbon Dioxide 24 mmol/L (23-31); Chloride 103 mmol/L (98-107); Glucose 121 mg/dL (80-115); Potassium 3.8 mmol/L (3.5-5.1); Sodium 137 mmol/L (136-145)
[2025-04-24 11:16] VITALS: TEMP 98.3
[2025-04-24 15:37] VITALS: BP 114/71
== END 2025-04-24 17:41 | disposition home or self-care (01) | DRG 82 ==
LOC: ERS 21:30 → ERHOLD 04-18 01:35 → CCU 04-18 03:18 → PCU 04-18 14:39
PROVIDERS: ADMIT Internal Medicine; ATTEND Internal Medicine
PROC: 3E03329 Introduction of Other Anti-infective into Peripheral Vein, Percutaneous Approach (ICD-10-PCS; 2025-04-18)
PROC: 4A10X4Z Monitoring of Central Nervous Electrical Activity, External Approach (ICD-10-PCS; principal; 2025-04-21)
DX: S06.6XAA Traumatic subarachnoid hemorrhage with loss of consciousness status unknown, initial encounter (principal); A41.9 Sepsis, unspecified organism; J18.9 Pneumonia, unspecified organism; R65.20 Severe sepsis without septic shock; C85.8A Other specified types of non-Hodgkin lymphoma, in remission; N30.00 Acute cystitis without hematuria; G40.409 Other generalized epilepsy and epileptic syndromes, not intractable, without status epilepticus; E11.9 Type 2 diabetes mellitus without complications; J45.909 Unspecified asthma, uncomplicated; E78.00 Pure hypercholesterolemia, unspecified; R40.2362 Coma scale, best motor response, obeys commands, at arrival to emergency department; R40.2142 Coma scale, eyes open, spontaneous, at arrival to emergency department; R40.2252 Coma scale, best verbal response, oriented, at arrival to emergency department; E27.8 Other specified disorders of adrenal gland; W19.XXXA Unspecified fall, initial encounter; I25.2 Old myocardial infarction; Z90.81 Acquired absence of spleen; Z98.891 History of uterine scar from previous surgery; Z98.51 Tubal ligation status; Z98.890 Other specified postprocedural states; Z88.8 Allergy status to other drugs, medicaments and biological substances; Z79.82 Long term (current) use of aspirin
CPT/HCPCS: 36415; 36416; 70450; 71045; 71275; 72125; 80048; 80053; 80185; 80306; 81001; 83036; 83605; 83735; 84145; 84146; 84443; 84484; 85025; 87040; 87086; 93005; 95700; 95711; 95957; 96365; 96366; 96367; 96375; J0456; J0692; J0696; J1308; J1953; J2405; J3475; J7030; J7050; Q0162; Q2009; Q9967

== ENCOUNTER 2025-04-30 10:15 | Outpatient (CLI) | payer OTHER | END 2025-04-30 10:16 | disposition home or self-care (01) | LOC: PET 10:15 | PROVIDERS: ATTEND Internal Medicine Hematology & Oncology | DX: C82.35 Follicular lymphoma grade IIIa, lymph nodes of inguinal region and lower limb (principal) | CPT/HCPCS: 78816; A9552 ==

== ENCOUNTER 2025-05-13 09:54 | Inpatient (IN) | payer OTHER ==
[2025-05-13 12:20] LABS: Lipase 89.0 U/L (8-78)
[2025-05-13 12:22] LABS: ALT (SGPT) 11 U/L (Less than 34); AST (SGOT) 13 U/L (11-34); Albumin 2.0 g/dL (3.1-4.5); Alkaline Phosphatase 227 U/L (40-110); Anion Gap 14 mmol/L (10-20); BUN (Urea Nitrogen) 16 mg/dL (9.8-20.1); Bilirubin, Total 0.7 mg/dL (0.3-1.2); Calc. Creatinine Clearance 0 mL/min (70-130); Calcium 9.0 mg/dL (7.8-10.44); Carbon Dioxide 28 mmol/L (23-31); Chloride 105 mmol/L (98-107); Globulin 3.6 g/dL (2.4-3.5); Glucose 106 mg/dL (80-115); Potassium 4.0 mmol/L (3.5-5.1); Sodium 143 mmol/L (136-145)
[2025-05-13 12:34] LABS: CRP, High Sensitivity at Bryan 34.04 mg/dL (< or = 0.5)
[2025-05-13 12:53] LABS: Hematocrit 40.2 % (36.0-47.0); Hemoglobin 13.7 g/dL (12.0-16.0); Mean Corpuscular Hemoglobin 28.1 pg (27.0-31.0); Mean Corpuscular Volume 82.4 fL (78.0-98.0); Platelet Count 218 10x3/uL (130-400); Red Blood Cell (RBC) Count 4.88 mill/uL (4.20-5.40); White Blood Cell (WBC) Count 4.75 10x3/uL (4.8-10.8)
[2025-05-13 12:57] LABS: Anisocytosis SLIGHT = 6-15 cells HPF (0-5); Burr Cells SLIGHT = 2-5 cells HPF (0-1); Macrocytosis SLIGHT = 6-15 cells HPF (0-5); Platelet Adequacy Comment Platelets Normal; Target Cells SLIGHT = 2-5 cells HPF (0-1)
[2025-05-13 14:04] LABS: Bacteria/HPF None Seen HPF (None Seen); CAUTI Indications for Culture Acute Hematuria; Glucose, Urine (Dipstick) Normal (Negative); Leukocyte 75 Leu/uL (Negative); Protein, Urine (Dipstick) 30 mg/dL (Neg-Trace); RBC/HPF 0-3 HPF (0-3); Specific Gravity, Urine 1.021 (1.002-1.036); WBC/HPF 0-3 HPF (0-3)
[2025-05-13 14:09] LABS: Urine Culture Reflex No No
[2025-05-13] MEDS ORDERED: Famotidine/PF 20 mg/2ml Vial ONE (17:15)
[2025-05-13] MEDS ORDERED: Acetaminophen 325 MG TAB PO PRN (18:06)
[2025-05-13] MEDS ORDERED: Glucagon 1 MG/ML KIT IM PRN (18:06)
[2025-05-13] MEDS ORDERED: Dextrose 50% Abboject 50 ML SYRINGE SLOW IVP PRN (18:06)
[2025-05-13] MEDS ORDERED: Melatonin 3 MG TAB PO PRN (18:06)
[2025-05-13] MEDS ORDERED: Acetaminophen/Codeine 30-300mg Tablet PO PRN (18:06)
[2025-05-13 18:57] VITALS: BMI 30.3
[2025-05-13] MEDS: levETIRAcetam 500 MG (5 mL) VIAL SLOW IVP SCH (19:58)
[2025-05-13] MEDS: cefTRIAXone\\ROCEPHIN 1 GM in Sodium Chloride 0.9% 100 ML IVPB SCH (19:59)
[2025-05-14] MEDS: Ondansetron PF 4 MG/2 ML Vial IVP PRN (03:46)
[2025-05-14 05:58] LABS: Hematocrit 32.1 % (36.0-47.0); Hemoglobin 10.5 g/dL (12.0-16.0); Mean Corpuscular Hemoglobin 27.3 pg (27.0-31.0); Mean Corpuscular Volume 83.4 fL (78.0-98.0); Platelet Count 198 10x3/uL (130-400); Red Blood Cell (RBC) Count 3.85 mill/uL (4.20-5.40); White Blood Cell (WBC) Count 2.14 10x3/uL (4.8-10.8)
[2025-05-14 06:17] LABS: Anion Gap 11 mmol/L (10-20); BUN (Urea Nitrogen) 14 mg/dL (9.8-20.1); Calc. Creatinine Clearance 153 mL/min (70-130); Calcium 8.3 mg/dL (7.8-10.44); Carbon Dioxide 26 mmol/L (23-31); Chloride 108 mmol/L (98-107); Glucose 151 mg/dL (80-115); Lipase 54 U/L (8-78); Potassium 3.5 mmol/L (3.5-5.1); Sodium 141 mmol/L (136-145)
[2025-05-14 06:28] LABS: Burr Cells SLIGHT = 2-5 cells HPF (0-1); Platelet Adequacy Comment Platelets Normal; Smudge Cells 12.7 %; Target Cells SLIGHT = 2-5 cells HPF (0-1)
[2025-05-14] MEDS ORDERED: Lidocaine 1% PF 5 ML VIAL ONE (07:20)
[2025-05-14] MEDS ORDERED: GLYCOPYRROLATE/PF 0.2 MG/ML VIAL ONE (07:21)
[2025-05-14] MEDS ORDERED: Albuterol HFA (OR) 200 PUFF INH ONE (08:12)
[2025-05-14] MEDS ORDERED: PROPOFOL 200 MG/20 ML VIAL ONE (08:12)
[2025-05-14 10:36] VITALS: BMI 30.3
[2025-05-14] MEDS ORDERED: Famotidine 20 MG TAB PO PRN (11:54)
[2025-05-14] MEDS ORDERED: metFORMIN 500 MG TAB PO PRN (11:54)
[2025-05-14] MEDS ORDERED: Non-Formulary Item 1 EACH (Albuterol 200 PUFF Inh) INH PRN (11:54)
[2025-05-14] MEDS ORDERED: Albuterol 200 PUFF (6.7GM INHALER) INH PRN (12:10)
[2025-05-14] MEDS ORDERED: Non-Formulary Item 1 EACH (Levetiracetam [Keppra] 750 MG Tablet) PO SCH (21:00)
[2025-05-14] MEDS: Rosuvastatin 5 MG TAB PO SCH (21:28)
[2025-05-14] MEDS: Aspirin 81 mg Enteric Coated Tablet PO SCH (21:28)
[2025-05-14] MEDS: levETIRAcetam 500 MG TAB PO SCH (21:28)
[2025-05-14] MEDS: Acetaminophen/Codeine 30-300mg Tablet PO PRN (21:43)
[2025-05-15 05:12] LABS: Hematocrit 30.2 % (36.0-47.0); Hemoglobin 10.0 g/dL (12.0-16.0); Mean Corpuscular Hemoglobin 27.7 pg (27.0-31.0); Mean Corpuscular Volume 83.7 fL (78.0-98.0); Platelet Count 176 10x3/uL (130-400); Red Blood Cell (RBC) Count 3.61 mill/uL (4.20-5.40); White Blood Cell (WBC) Count 0.79 10x3/uL (4.8-10.8)
[2025-05-15 05:18] LABS: ALT (SGPT) 8 U/L (Less than 34); AST (SGOT) 14 U/L (11-34); Albumin 1.7 g/dL (3.1-4.5); Alkaline Phosphatase 173 U/L (40-110); Anion Gap 11 mmol/L (10-20); BUN (Urea Nitrogen) 8 mg/dL (9.8-20.1); Bilirubin, Total 0.3 mg/dL (0.3-1.2); Calc. Creatinine Clearance 160 mL/min (70-130); Calcium 8.3 mg/dL (7.8-10.44); Carbon Dioxide 27 mmol/L (23-31); Chloride 105 mmol/L (98-107); Globulin 3.2 g/dL (2.4-3.5); Glucose 94 mg/dL (80-115); Potassium 3.4 mmol/L (3.5-5.1); Sodium 140 mmol/L (136-145)
[2025-05-15 06:18] LABS: #Basophils Less than 0.03 10x3/uL (0.0-0.2); #Eosinophils 0.13 10x3/uL (0.0-0.7); #Monocytes 0.16 10x3/uL (0.11-0.59); #Neutrophils 0.19 10x3/uL (1.40-6.50); %Basophils 1.3 % (0.0-1.0); %Eosinophils 16.5 % (0.0-10.0); %Lymphocytes 38.0 % (21.0-51.0); %Monocytes 20.3 % (0.0-10.0); %Neutrophils 23.9 % (42.0-75.0); Reflex for Review?? YES
[2025-05-15 06:19] LABS: Platelet Adequacy Comment Platelets Normal; Target Cells SLIGHT = 2-5 cells HPF (0-1)
[2025-05-15] MEDS: Allopurinol 100 MG TAB PO SCH (08:24)
[2025-05-15] MEDS: FILGRASTIM-AYOW 480 MCG/0.8 ML SYRINGE SC SCH (16:27)
[2025-05-16] MEDS: HYDROcodone/Acetaminophen 7.5/325 mg Tablet PO PRN (00:33)
[2025-05-16 04:41] LABS: Hematocrit 32.4 % (36.0-47.0); Hemoglobin 10.6 g/dL (12.0-16.0); Mean Corpuscular Hemoglobin 27.5 pg (27.0-31.0); Mean Corpuscular Volume 84.2 fL (78.0-98.0); Platelet Count 171 10x3/uL (130-400); Red Blood Cell (RBC) Count 3.85 mill/uL (4.20-5.40); White Blood Cell (WBC) Count 1.21 10x3/uL (4.8-10.8)
[2025-05-16 04:55] LABS: ALT (SGPT) Less than 7 U/L (Less than 34); AST (SGOT) 14 U/L (11-34); Albumin 1.8 g/dL (3.1-4.5); Alkaline Phosphatase 174 U/L (40-110); Anion Gap 13 mmol/L (10-20); BUN (Urea Nitrogen) 5 mg/dL (9.8-20.1); Bilirubin, Total 0.3 mg/dL (0.3-1.2); Calc. Creatinine Clearance 142 mL/min (70-130); Calcium 8.5 mg/dL (7.8-10.44); Carbon Dioxide 29 mmol/L (23-31); Chloride 104 mmol/L (98-107); Globulin 3.3 g/dL (2.4-3.5); Glucose 97 mg/dL (80-115); Potassium 3.9 mmol/L (3.5-5.1); Sodium 142 mmol/L (136-145); Uric Acid 3.6 mg/dL (2.5-6.2)
[2025-05-16 05:10] LABS: Anisocytosis SLIGHT = 6-15 cells HPF (0-5); Platelet Adequacy Comment Platelets Normal; Polychromasia SLIGHT = 2-3 cells HPF (0-2)
[2025-05-17 09:11] LABS: Hematocrit 33.7 % (36.0-47.0); Hemoglobin 10.8 g/dL (12.0-16.0); Mean Corpuscular Hemoglobin 27.3 pg (27.0-31.0); Mean Corpuscular Volume 85.3 fL (78.0-98.0); Platelet Count 228 10x3/uL (130-400); Red Blood Cell (RBC) Count 3.95 mill/uL (4.20-5.40); White Blood Cell (WBC) Count 2.84 10x3/uL (4.8-10.8)
[2025-05-17 09:15] LABS: Anion Gap 13 mmol/L (10-20); BUN (Urea Nitrogen) 5 mg/dL (9.8-20.1); Calc. Creatinine Clearance 131 mL/min (70-130); Calcium 8.7 mg/dL (7.8-10.44); Carbon Dioxide 30 mmol/L (23-31); Chloride 102 mmol/L (98-107); Glucose 107 mg/dL (80-115); Potassium 3.6 mmol/L (3.5-5.1); Sodium 141 mmol/L (136-145)
[2025-05-17 10:37] LABS: Anisocytosis SLIGHT = 6-15 cells HPF (0-5); Burr Cells SLIGHT = 2-5 cells HPF (0-1); Nucleated RBC (Manual Ct) 1 % (0); Platelet Adequacy Comment Platelets Normal; Polychromasia SLIGHT = 2-3 cells HPF (0-2); Schistocytes SLIGHT = 2-5 cells HPF (0-1); Smudge Cells 12.0 %; Target Cells SLIGHT = 2-5 cells HPF (0-1)
[2025-05-17] MEDS: levETIRAcetam 500 MG (5 mL) VIAL SLOW IVP SCH (12:37)
[2025-05-17 13:02] LABS: ALT (SGPT) 8 U/L (Less than 34); AST (SGOT) 21 U/L (11-34); Albumin 2.6 g/dL (3.1-4.5); Alkaline Phosphatase 225 U/L (40-110); Anion Gap 18 mmol/L (10-20); BUN (Urea Nitrogen) 4 mg/dL (9.8-20.1); Bilirubin, Total 0.4 mg/dL (0.3-1.2); Calc. Creatinine Clearance 117 mL/min (70-130); Calcium 9.6 mg/dL (7.8-10.44); Carbon Dioxide 28 mmol/L (23-31); Chloride 100 mmol/L (98-107); Globulin 4.0 g/dL (2.4-3.5); Glucose 88 mg/dL (80-115); Potassium 3.6 mmol/L (3.5-5.1); Sodium 142 mmol/L (136-145)
[2025-05-17 13:08] LABS: Hematocrit 39.5 % (36.0-47.0); Hemoglobin 12.7 g/dL (12.0-16.0); Mean Corpuscular Hemoglobin 27.7 pg (27.0-31.0); Mean Corpuscular Volume 86.2 fL (78.0-98.0); Platelet Count 209 10x3/uL (130-400); Red Blood Cell (RBC) Count 4.58 mill/uL (4.20-5.40); White Blood Cell (WBC) Count 5.26 10x3/uL (4.8-10.8)
[2025-05-17 14:08] LABS: Anisocytosis SLIGHT = 6-15 cells HPF (0-5); Burr Cells SLIGHT = 2-5 cells HPF (0-1); Macrocytosis SLIGHT = 6-15 cells HPF (0-5); Nucleated RBC (Manual Ct) 1 % (0); Platelet Adequacy Comment Platelets Normal; Poikilocytosis SLIGHT = 6-15 cells HPF (0-5); Smudge Cells 4.9 %; Spherocytes SLIGHT = 1-5 cells HPF (None Seen); Target Cells SLIGHT = 2-5 cells HPF (0-1)
[2025-05-17] MEDS: levETIRAcetam 500 MG TAB PO SCH (20:56)
[2025-05-18 07:15] LABS: #Basophils 0.13 10x3/uL (0.0-0.2); #Eosinophils 0.36 10x3/uL (0.0-0.7); #Monocytes 1.30 10x3/uL (0.11-0.59); #Neutrophils 4.40 10x3/uL (1.40-6.50); %Basophils 1.7 % (0.0-1.0); %Eosinophils 4.8 % (0.0-10.0); %Lymphocytes 14.1 % (21.0-51.0); %Monocytes 17.2 % (0.0-10.0); %Neutrophils 58.1 % (42.0-75.0); Hematocrit 34.3 % (36.0-47.0); Hemoglobin 10.9 g/dL (12.0-16.0); Mean Corpuscular Hemoglobin 27.3 pg (27.0-31.0); Mean Corpuscular Volume 85.8 fL (78.0-98.0); Platelet Count 249 10x3/uL (130-400); Red Blood Cell (RBC) Count 4.00 mill/uL (4.20-5.40); White Blood Cell (WBC) Count 7.57 10x3/uL (4.8-10.8)
[2025-05-18 07:19] LABS: Anion Gap 14 mmol/L (10-20); BUN (Urea Nitrogen) 5 mg/dL (9.8-20.1); Calc. Creatinine Clearance 121 mL/min (70-130); Calcium 8.6 mg/dL (7.8-10.44); Carbon Dioxide 27 mmol/L (23-31); Chloride 102 mmol/L (98-107); Glucose 80 mg/dL (80-115); Potassium 3.4 mmol/L (3.5-5.1); Sodium 140 mmol/L (136-145)
[2025-05-18 12:10] LABS: Anisocytosis SLIGHT = 6-15 cells HPF (0-5); Burr Cells SLIGHT = 2-5 cells HPF (0-1); Giant Platelets 15.3 % (0-5); Macrocytosis SLIGHT = 6-15 cells HPF (0-5); Nucleated RBC (Manual Ct) 2 % (0); Platelet Adequacy Comment Platelets Normal; Polychromasia SLIGHT = 2-3 cells HPF (0-2); Smudge Cells 15.3 %; Target Cells SLIGHT = 2-5 cells HPF (0-1)
[2025-05-20 19:18] VITALS: BP 151/90; TEMP 98.4
== END 2025-05-20 19:18 | DRG 439 ==
LOC: ERS 09:54 → MSONC 17:21
PROVIDERS: ADMIT Internal Medicine; ATTEND Student in an Organized Health Care Education/Training Program
PROC: 0DJ08ZZ Inspection of Upper Intestinal Tract, Via Natural or Artificial Opening Endoscopic (ICD-10-PCS; principal; 2025-05-14)
PROC: 3E03329 Introduction of Other Anti-infective into Peripheral Vein, Percutaneous Approach (ICD-10-PCS; 2025-05-17)
PROC: 05HY33Z Insertion of Infusion Device into Upper Vein, Percutaneous Approach (ICD-10-PCS; 2025-05-17)
DX: K85.10 Biliary acute pancreatitis without necrosis or infection (principal); C82.35 Follicular lymphoma grade IIIa, lymph nodes of inguinal region and lower limb; C85.10 Unspecified B-cell lymphoma, unspecified site; N39.0 Urinary tract infection, site not specified; E44.0 Moderate protein-calorie malnutrition; Z92.21 Personal history of antineoplastic chemotherapy; E11.9 Type 2 diabetes mellitus without complications; E78.00 Pure hypercholesterolemia, unspecified; J45.909 Unspecified asthma, uncomplicated; G40.909 Epilepsy, unspecified, not intractable, without status epilepticus; K26.9 Duodenal ulcer, unspecified as acute or chronic, without hemorrhage or perforation; D70.2 Other drug-induced agranulocytosis; T45.1X5A Adverse effect of antineoplastic and immunosuppressive drugs, initial encounter; Z98.51 Tubal ligation status; Z98.891 History of uterine scar from previous surgery; Z90.81 Acquired absence of spleen; I25.2 Old myocardial infarction; Z86.73 Personal history of transient ischemic attack (TIA), and cerebral infarction without residual deficits; Z68.30 Body mass index [BMI] 30.0-30.9, adult
CPT/HCPCS: 36415; 36416; 70450; 70553; 74176; 76376; 80048; 80053; 81001; 83605; 83615; 83690; 84100; 84550; 85025; 85060; 86141; 87040; 87086; 93306; 96374; 96375; J0696; J1308; J1447; J1953; J2405; J2704; J3490; J7120